=== PATIENT | female | born 1960 | race Caucasian/White ===

== ENCOUNTER → 2018-07-12 12:42 | Outpatient (CLI) | payer OTHER, SELFPAY ==
[2018-07-12 10:55] VITALS: BMI 41.6
[2018-07-15 11:24] LABS: HPV APTIMA, High Risk Negative (Negative)
== END ==
PROVIDERS: Family Provider Family Medicine; PCP Family Medicine; Referring Provider Obstetrics & Gynecology; Visit Provider Obstetrics & Gynecology
DX: Z12.4 Encounter for screening for malignant neoplasm of cervix (principal)
CPT/HCPCS: 87624; 88175; G0145

== ENCOUNTER → 2019-01-05 | Outpatient (CLI) | payer OTHER, SELFPAY ==
[2018-08-25 14:59] VITALS: BMI 41.6
[2019-01-05 10:51] LABS: Hemoglobin A1c 7.2 % (4.2-6.3)
[2019-01-05 10:55] LABS: Anion Gap 8 (5-15); BUN 13 mg/dL (7-18); BUN/Creat Ratio 22.4 RATIO (10-20); Chloride 109 mmol/L (98-107); Cholesterol 147 mg/dL (200); Creatinine, Serum 0.58 mg/dL (0.55-1.02); EST Glomerular Filtration Rate 113 mL/min (>60); Est Glom Filt Rate - Afr Amer 137 mL/min (>60); Glucose 126 mg/dL (74-106); High Density Lipoprotein 74 mg/dL; Potassium 4.1 mmol/L (3.5-5.1); Sodium Level 143 mmol/L (136-145); Triglycerides 65 mg/dL; Very Low Density Lipoprotein 13 mg/dL (5-40)
== END | disposition home or self-care (01) ==
LOC: MTLAB 09:08
PROVIDERS: Family Provider Family Medicine; PCP Family Medicine; Referring Provider Family Medicine; Visit Provider Family Medicine
DX: I10 Essential (primary) hypertension (principal); E11.9 Type 2 diabetes mellitus without complications
CPT/HCPCS: 36415; 80048; 80061; 83036

== ENCOUNTER → 2019-06-06 15:27 | Outpatient (CLI) | payer OTHER, SELFPAY ==
[2019-06-06 15:19] VITALS: BMI 41.6
--- NOTE | 2019-06-06 15:27 | RAD_ITS ---
STUDY: X-RAY CHEST REASON FOR EXAM: Female, 59 years old. COUGH AND FEVER X4 DAYS TECHNIQUE: PA and lateral views of the chest. COMPARISON: 03/05/2012 FINDINGS: There is hyperinflation of the lungs consistent with chronic obstructive lung disease (COPD). There is no demonstrated pleural abnormality. Mild cardiomegaly. Normal mediastinum and georges. Normal visualized pulmonary arteries. Normal visualized aortic arch and descending thoracic aorta. There are diffuse degenerative changes of the visualized thoracic spine. Normal visualized ribs, clavicles, and shoulders. There is no demonstrated abnormality of the visualized soft tissue structures of the upper abdomen. RAD/Chest PA and Lateral IMPRESSION: COPD. No evidence of pneumonia or CHF. No acute intrathoracic process. Electronically Signed: Harvey Richard MD at 16:26 EST Tel [phone], Service support ,
== END ==
PROVIDERS: Family Provider Family Medicine; PCP Family Medicine; Referring Provider Physician Assistant Surgical; Visit Provider Physician Assistant Surgical
DX: J40 Bronchitis, not specified as acute or chronic (principal)
CPT/HCPCS: 71046

== ENCOUNTER 2019-10-25 09:30 | Inpatient (IN) | payer OTHER, SELFPAY ==
[2019-06-06 15:19] VITALS: BMI 41.6
[2019-10-25] VITALS (35 sets, daily range): BP systolic 97–157; BP diastolic 62–111; PULSE 66–115; RESP 17–35; TEMP 36.4–36.8; O2SAT 91–100; BMI 27.6; BMI 27.9; BMI 28.0
--- NOTE | 2019-10-25 09:31 | CT_ITS ---
STUDY: CT BRAIN WITHOUT CONTRAST REASON FOR EXAM: Female, 59 years old. APHASIA, ACUTE ONSET RADIATION DOSAGE (If Supplied By Facility): CTDIvol = ( 44.99 ) mGy, DLP = ( 762.36 ) mGycm TECHNIQUE: Transaxial CT imaging of the brain was performed without administration of intravenous contrast material. Individualized dose optimization techniques were used for this CT. COMPARISON: Comparison is made with prior study dated March 05, 2012. FINDINGS: Normal soft tissue structures. Normal calvarium. Normal size ventricles and extra-axial spaces for the patient''s age. Normal white matter tracts of the cerebral hemispheres. Normal basal ganglia and thalami. Normal brainstem. There is mild cerebellar atrophy. There is no intracranial hemorrhage. There are no findings of an acute ischemic infarction. Atherosclerotic calcification of the cavernous portions of the internal carotid arteries bilaterally. Normal visualized paranasal sinuses. CT/Brain/Head without Contrast IMPRESSION: No acute abnormality is seen. N.B. : The above information has been verbally conveyed by Ronald Carranza to Kameron Sloanley on 10/25/2019 09:43:22 (ET). Electronically Signed: Ronald Carranza, at 9:45 EDT , Service support ,
--- NOTE | 2019-10-25 09:31 | EKG12_ITS ---
Test Reason : STROKE/NEURO Blood Pressure : / mmHG Vent. Rate : 106 BPM Atrial Rate : 106 BPM P-R Int : 164 ms QRS Dur : 090 ms QT Int : 346 ms P-R-T Axes : 056 -34 082 degrees QTc Int : 459 ms Sinus tachycardia with Premature atrial complexes Left axis deviation Anterior infarct , age undetermined , cannot be excluded Abnormal ECG Confirmed by MINNIE SCHULZ, CHIDI ([id number]), technical writer and editor BEVERLY ZHANG ([id number]) on 11/03/2019 4:08:26 PM Referred By: ALEJANDRA Confirmed By:CHIDI HARTMAN MD
--- NOTE | 2019-10-25 09:32 | CT_ITS ---
STUDY: CTA HEAD AND NECK WITH CONTRAST REASON FOR EXAM: Female, 59 years old. APHASIA RADIATION DOSAGE (If Supplied By Facility): CTDIvol = ( 30.95 ) mGy, DLP = ( 354.20 ) mGycm TECHNIQUE: CT angiography was performed with a multi-detector CT scanner. Data acquisition was obtained from the skull base through the vertex following intravenous administration of IV 100mL Isovue-370. MIP images were reconstructed from the axial data set. Post-processing of the angiographic images was performed, with multiplanar reformation and 3D reconstruction. Individualized dose optimization techniques were used for this CT. COMPARISON: No relevant priors. FINDINGS: Normal bilateral petrous carotid arteries. Normal right cavernous carotid artery with a normal supraclinoid bifurcation. Normal left cavernous carotid artery with a normal supraclinoid bifurcation. Normal right A1 segments of the anterior cerebral artery. Normal left A1 segments of the anterior cerebral artery. Normal intact anterior communicating artery (ACOM). Normal bilateral A2 segments of the anterior cerebral arteries. Normal right M1 and M2 segments of the middle cerebral arteries, with a normal M1 bifurcation. Normal left M1 and M2 segments of the middle cerebral arteries, with a normal M1 bifurcation. Normal right posterior communicating artery (PCOM). Normal left posterior communicating artery (PCOM). Normal bilateral vertebral arteries. Normal basilar artery with a normal basilar bifurcation. The visualized bilateral superior cerebellar (SCA) arteries are normal. Normal bilateral P1, P2 and visualized P3 segments of the posterior cerebral arteries. There is no demonstrated aneurysm of the [place] of [place]. There is no demonstrated abnormality of the visualized brain. AORTIC ARCH: Normal visualized aortic arch. Normal origins of the brachiocephalic, left common carotid, and left subclavian arteries. RIGHT CAROTID ARTERIES: Normal right common carotid artery (CCA). Normal right common carotid bulb. Normal origin of the right internal carotid (ICA) artery without a hemodynamically significant stenosis. Normal visualized cervical portion of the right internal carotid artery. Normal origin of the right external carotid artery (ECA). LEFT CAROTID ARTERIES: Normal left common carotid artery (CCA). Normal left common carotid bulb. Normal origin of the left internal carotid (ICA) artery without a hemodynamically significant stenosis. Normal visualized cervical portion of the left internal carotid artery. Normal origin of the left external carotid artery (ECA). VERTEBRAL ARTERIES: Normal bilateral vertebral arteries. Moderate bilateral pleural effusions. There is a 1.3 cm x 1.3 cm nodular density in the peripheral lateral aspect of the right upper lobe. CT/CTA Head AND Neck W/ Contrast IMPRESSION: Normal CTA Head and neck with contrast. 1.3 cm x 1.3 cm nodular density in the peripheral lateral aspect of the right upper lobe with bilateral pleural effusions. Electronically Signed: Ronald Carranza, at 10:09 EDT , Service support ,
--- NOTE | 2019-10-25 09:33 | ED.VIS.GEN ---
History of Present Illness Chief Complaint: Neuro S/Sx Informant: Patient Onset: Today Context: Sudden Onset Timing: Continuous Current Severity: Moderate Maximum Severity: Severe Narrative: Patient is a 59-year-old female with medical history significant for hypertension and prior breast cancer that presents to the emergency department with sudden onset expressive a aphasia. Patient was fatigued yesterday. She woke this morning and per daughter, she states that she was speaking. Shortly thereafter, she developed some slurred speech and garbled speech. Within the past 45 minutes, she has had total expressive aphasia. She denies headache. She denies visual change. Patient is able to follow commands and answer questions. She has no history of prior stroke. She denies any recent trauma. She has had no fever or chills. Prior similar symptoms: No Recent Illness/Hospitalization: No Past Medical History - Allergies and Home Meds Allergies/Adverse Reactions: Allergies No Known Allergies Allergy (Verified 10/25/19 09:55) Prior records reviewed: Yes Past Medical History: - - Hypertension, prior breast cancer Smoking Status: Never smoker Review of Systems General: Denies: Chills, Fever, Sweats Eyes: Denies: Visual changes - bilaterally, Diplopia ENT: Denies: Rhinorrhea, Sore throat Cardiovascular: Denies: Chest pain, Palpitations Respiratory: Denies: Dyspnea, Cough, Dyspnea on exertion Gastrointestinal: Denies: Abdominal pain, Nausea, Vomiting, Diarrhea, Melena, Hematochezia Genitourinary: Denies: Dysuria, Hematuria, Frequency Musculoskeletal: Denies: Back pain, Extremity Pain Skin: Denies: Rash, Wounds Neurological: Reports: Weakness. Denies: Headache, Numbness Physical Exam Inital Vital Signs reviewed: Yes General: Well nourished, Well developed, No Acute Distress Head: Normocephalic, Atraumatic Eyes: Perrl, EOMI ENT: Moist mucous membranes, No rhinorrhea Neck: Supple, Nontender Cardiovascular: Regular rate, Regular rhythm, No murmurs Respiratory: No distress, CTA bilaterally, Chest nontender Abdomen: Soft, Nontender, Nondistended, Normal bowel sounds Back: Nontender, Normal Inspection Extremities: Nontender, No edema Skin: Normal color, No rash Neurological: Alert, Oriented x3, Cranial nerves II-XII grossly intact, Normal Strength, Normal Sensation, - - Patient does have expressive aphasia Psychological: Normal affect, Normal Mood Diagnostic/Tx/Re-eval Chest X-Ray - ED: 1 View, Cardiomegaly, CHF 1A: Level of consciousness May be assessed casually while taking history Alert; keenly responsive0 Arouses to minor stimulation+1 Requires repeated stimulation to arouse+2 Movements to pain+2 Postures or unresponsive+3 1B: Ask month and age Both questions right0 1 question right+1 0 questions right +2 Dysarthric/intubated/trauma/language barrier +1 Aphasic+2 1C: 'Blink eyes' & 'squeeze hands' Pantomime commands if communication barrier Performs both tasks0 Performs 1 task+1 Performs 0 tasks+2 2: Horizontal extraocular movements Only assess horizontal gaze Normal0 Partial gaze palsy: can be overcome+1 Partial gaze palsy: corrects with oculocephalic reflex+1 Forced gaze palsy: cannot be overcome+2 3: Visual dennis No visual loss0 Partial hemianopia+1 Complete hemianopia+2 Patient is bilaterally blind+3 Bilateral hemianopia+3 4: Facial palsy Use grimace if obtunded Normal symmetry0 Minor paralysis (flat nasolabial fold, smile asymmetry)+1 Partial paralysis (lower face)+2 Unilateral complete paralysis (upper/lower face)+3 Bilateral complete paralysis (upper/lower face)+3 5A: Left arm motor drift Count out loud and use your fingers to show the patient your count No drift for 10 seconds0 Drift, but doesn't hit bed+1 Drift, hits bed+2 Some effort against gravity+2 No effort against gravity+3 No movement+4 Amputation/joint fusion0 5B: Right arm motor drift Count out loud and use your fingers to show the patient your count No drift for 10 seconds0 Drift, but doesn't hit bed+1 Drift, hits bed+2 Some effort against gravity+2 No effort against gravity+3 No movement+4 Amputation/joint fusion0 6A: Left leg motor drift Count out loud and use your fingers to show the patient your count No drift for 5 seconds0 Drift, but doesn't hit bed+1 Drift, hits bed+2 Some effort against gravity+2 No effort against gravity+3 No movement+4 Amputation/joint fusion0 6B: Right leg motor drift Count out loud and use your fingers to show the patient your count No drift for 5 seconds0 Drift, but doesn't hit bed+1 Drift, hits bed+2 Some effort against gravity+2 No effort against gravity+3 No movement+4 Amputation/joint fusion0 7: Limb Ataxia FNF/heel-moss No ataxia0 Ataxia in 1 Limb+1 Ataxia in 2 Limbs+2 Does not understand0 Paralyzed0 Amputation/joint fusion0 8: Sensation Normal; no sensory loss0 Mild-moderate loss: less sharp/more dull +1 Mild-moderate loss: can sense being touched +1 Complete loss: cannot sense being touched at all+2 No response and quadriplegic +2 Coma/unresponsive+2 9: Language/aphasia Describe the scene; name the items; read the sentences (see Evidence) Normal; no aphasia0 Mild-moderate aphasia: some obvious changes, without significant limitation+1 Severe aphasia: fragmentary expression, inference needed, cannot identify materials+2 Mute/global aphasia: no usable speech/auditory comprehension+3 Coma/unresponsive+3 10: Dysarthria Read the words (see Evidence) Normal0 Mild-moderate dysarthria: slurring but can be understood+1 Severe dysarthria: unintelligible slurring or out of proportion to dysphasia+2 Mute/anarthric+2 Intubated/unable to test0 11: Extinction/inattention No abnormality0 Visual/tactile/auditory/spatial/personal inattention+1 Extinction to bilateral simultaneous stimulation+1 Profound graciela-inattention (ex: does not Total - 7 Clinical Impression(s) from Imaging Studies Brain CT 10/25/19 09:31 IMPRESSION: No acute abnormality is seen. N.B. : The above information has been verbally conveyed by Ronald Carranza to Kameron Munguia on 10/25/2019 09:43:22 (ET). Electronically Signed: Ronald Carranza, at 9:45 EDT , Service support , ADDENDUM: 10/25/19 1974 IMPRESSION: No acute abnormality is seen. N.B. : The above information has been verbally conveyed by Ronald Carranza to Kameron Munguia on 10/25/2019 09:43:22 (ET). Electronically Signed: Ronald Carranza, at 9:45 EDT , Service support , Head/Neck CTA 10/25/19 09:32 IMPRESSION: Normal CTA Head and neck with contrast. 1.3 cm x 1.3 cm nodular density in the peripheral lateral aspect of the right upper lobe with bilateral pleural effusions. Electronically Signed: Ronald Carranza, at 10:09 EDT , Service support , Abnormal Lab Results 10/25/19 10/25/19 10/25/19 09:40 09:40 09:40 WBC 7.3 RBC 4.89 Hgb 13.9 Hct 42.5 MCV 86.9 MCH 28.4 MCHC 32.7 RDW Std Deviation 42.7 RDW Coeff of Ana 13.7 Plt Count 235 MPV 9.8 Immature Gran % (Auto) 0.300 Neut % (Auto) 58.8 Lymph % (Auto) 33.2 [place] % (Auto) 6.0 Eos % (Auto) 1.2 Baso % (Auto) 0.5 Absolute Neuts (auto) 4.3 Absolute Lymphs (auto) 2.44 Nucleated RBC % 0 PT 14.4 INR 1.2 APTT 30.4 Sodium 140 Potassium 3.7 Chloride 106 Carbon Dioxide 24.0 Anion Gap 10 BUN 13 Creatinine 0.89 Estim Creat Clear Calc 53.83 Est GFR (MDRD) Af Amer 83 Est GFR (MDRD) Non-Af 69 BUN/Creatinine Ratio 14.6 Glucose 201 H Calcium 9.2 Troponin I 0.033 - Rhythm Strip Rhythm Strip: Sinus Rhythm Rate: 90 Ectopy: None - EKG Initial EKG Interpretation: Sinus Rhythm, No Acute Injury Pattern Prior: Unchanged - Medical Decision Making The patient presents with dysarthria that has worsened into total expressive aphasia. Stroke team was activated. Patient was sent immediately for CT and CTA. CT showed no acute abnormality. CTA did not show any abrupt large vessel cutoff. Patient was evaluated by neurology. There was a delay in decision for TPA as the family had a longer discussion. At the approximately 40-minute berto, the family did agree with plan for TPA. The patient was consented and had no exclusion criteria. TPA was ordered. The patient will be admitted to the ICU. Impression 1. Acute ischemic stroke - Critical Care Time Critical care time (excluding procedures): 30-74 minutes, Discussing w/Patient &/or Family/Radio Script Writer, Discussing w/Consultants, Arranging Admission or Transfer, Performing Direct Patient Care at Bedside ED Disposition - Plan for ED Patient:
--- NOTE | 2019-10-25 09:37 | NURSING ---
0927 STROKE ALERT CALLED
--- NOTE | 2019-10-25 09:42 | NURSING ---
0936 FACESHEET FAXED TO [facility]
[2019-10-25 09:54] LABS: Absolute Lymphocyte Count 2.44 X10^3/uL (0.83-4.51); Absolute Neutrophil Count 4.3 X10^3/uL (2.0-7.7); Basophil# 0.04 X10^3/uL; Basophil% 0.5 % (0-1); Eosinophil# 0.09 X10^3/uL; Eosinophils% 1.2 % (0-5); Hematocrit 42.5 % (37-47); Hemoglobin 13.9 g/dL (12.0-15.0); Lymphocyte # 2.44 X10^3/ul (4.0); Lymphocyte % 33.2 % (19-41); Mean Corp Hgb Conc 32.7 g/dL (32-36); Mean Corpuscular Hgb 28.4 pg (27.0-32.0); Mean Corpuscular Volume 86.9 fL (81-99); Mean Platelet Vol. 9.8 fl (6.2-12.0); Monocyte# 0.44 X10^3/uL; NRBC Flagged by Analyzer 0 % (0-5); Neutrophil # 4.31 X10^3/uL (2.7-7.7); Neutrophil % 58.8 % (47-70); Platelet Count 235 K/mm3 (150-450); RBC Distribution Width CV 13.7 % (11.6-14.6); RBC Distribution Width SD 42.7 fl (35.1-43.9); Red Blood Count 4.89 M/mm3 (4.2-5.4); White Blood Count 7.3 K/mm3 (4.4-11.0)
[2019-10-25 09:59] LABS: International Normalized Ratio 1.2; Prothrombin Time (Protime)PT. 14.4 SECONDS (11.7-14.9)
[2019-10-25 10:00] LABS: Partial Thromboplast Time 30.4 Seconds (24.1-36.2)
[2019-10-25 10:08] LABS: Anion Gap 10 (5-15); BUN 13 mg/dL (7-18); BUN/Creat Ratio 14.6 RATIO (10-20); Calcium,Total 9.2 mg/dL (8.5-10.1); Chloride 106 mmol/L (98-107); Creatinine, Serum 0.89 mg/dL (0.55-1.02); EST Glomerular Filtration Rate 69 mL/min (>60); Est Glom Filt Rate - Afr Amer 83 mL/min (>60); Estimated Creatinine Clearance 53.83 ml/min; Glucose 201 mg/dL (74-106); Potassium 3.7 mmol/L (3.5-5.1); Sodium Level 140 mmol/L (136-145)
--- NOTE | 2019-10-25 10:16 | NURSING ---
DR CHAD SCHWARTZ
--- NOTE | 2019-10-25 10:25 | NURSING ---
ICU PAINTSIL ISCHEMIC STROKE
--- NOTE | 2019-10-25 10:30 | RAD_ITS ---
STUDY: X-RAY CHEST REASON FOR EXAM: Female, 59 years old. Stroke symptoms, difficulty communicating, cough TECHNIQUE: Single AP portable view of the chest. COMPARISON: Comparison is made with prior study dated June 06, 2019. FINDINGS: EKG electrodes are seen. Blunting of both costophrenic angles. Findings suggestive of a mild degree of vascular congestion. There is mild cardiac enlargement. Normal mediastinum and georges. Normal visualized pulmonary arteries. Normal visualized aortic arch and descending thoracic aorta. Normal visualized thoracic spine. Normal visualized ribs, clavicles, and shoulders. There is no demonstrated abnormality of the visualized soft tissue structures of the upper abdomen. RAD/Chest 1 View IMPRESSION: Cardiomegaly. Blunting of both clustering angles with findings suggesting a mild degree of CHF. Electronically Signed: Ronald Carranza, at 10:49 EDT , Service support ,
--- NOTE | 2019-10-25 10:36 | NURSING ---
ICU 8
[2019-10-25] MEDS: 0.9% Normal Saline 1,000 ML 100 ML IV (11:31)
--- NOTE | 2019-10-25 11:44 | PCM.HP.STD ---
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 Patient was last known to be normal at 7:30am in the morning when she woke up. Around 8:30-8:45 AM, and her daughter noticed that she had word finding difficulty.She was also slightly short of breath. She has been recovering from a chest cold. No sick contacts. No fevers or diarrhea. Vitals in ED showed temp 97.8F, HR 115, BP 129/90, RR 26, Spo2 96% on room air. CBCD and BMP were unremarkable. Brain CT was unremarkable. CTA head and neck is normal. There is a 1.3cm x 1.3 cm nodular density in the peripheral lateral aspect of the right upper lobe with bilateral pleural effusions. Patient had a telling stroke consult in the ED. Decision to give TPA was made. TPA was given at 10:19am. Past Medical History Past Medical History (Chronic Problems): Chronic Problems (Last Reviewed 06/06/19 @ 15:19 by Jovany Gonzáles) Breast CA (Chronic) Hypertension (Chronic) DM (diabetes mellitus) (Chronic) Medical History: Medical History (Last Reviewed 06/06/19 @ 15:19 by Jovany Gonzáles) Arthritis M19.90 Breast cancer C50.[address] [place] [address] Diabetes E11.9 History of migraine headaches Z86.69 Hypertension I10 Allergies No Known Allergies Allergy (Verified 10/25/19 09:55) Home Medications: Ambulatory Orders Medication Instructions Recorded lisinopril 20 mg tablet 20 mg PO QDAY 06/26/17 metformin 500 mg tablet 500 mg PO BID 06/26/17 Letrozole 2.5 mg PO DAILY 10/25/19 Surgical History: Surgical History (Last Reviewed 06/06/19 @ 15:19 by Jovany Gonzáles) H/O lumpectomy Z98.890 History of appendectomy Z98.890, Z90.49 History of delivery Z98.891 Surgical History: appendectomy, - - s/p caesarian section, s/p lumpectomy Psychiatric History: No pertinent psych hx 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: No pertinent HIGH HEEL BUILDER history Lives: Spouse/ Significant Other Smoking Status: Never smoker Tobacco Use: Non-smoker Alcohol: Occasional Drugs: None - *Family History Maternal Family History: Family History (Last Reviewed 06/06/19 @ 15:19 by Jovany Gonzáles) Mother Hypertension Myocardial infarction Father Diabetes Cancer Grandmother Hypertension CVA (cerebral vascular accident) Heart disease Cancer Grandfather Hypertension Colon cancer Cancer Aunt Breast cancer History Items: Heart Disease - [place], Hypertension Paternal Family History: Family History (Last Reviewed 06/06/19 @ 15:19 by Jovany Gonzáles) Mother Hypertension Myocardial infarction Father Diabetes Cancer Grandmother Hypertension CVA (cerebral vascular accident) Heart disease Cancer Grandfather Hypertension Colon cancer Cancer Aunt Breast cancer History Items: Cancer - prostate, Diabetes Review of Systems Unable to obtain accurate/complete ROS d/t: Unable to assess because of expressive aphasia VTE Information - Inpt Only VTE Present on Admission: No VTE Pharm Prophylaxis ordered?: Yes Patient Problems: Active and Suspected Problems (Last Reviewed 06/06/19 @ 15:19 by Jovany Gonzáles) CVA (cerebral vascular accident) (Acute) - Physical Exam Vitals/I&O's: Vital Signs Temp Pulse Resp BP Pulse Ox 98.3 F 98 17 157/98 H 98 10/25/19 10:34 10/25/19 10:53 10/25/19 10:53 10/25/19 10:53 10/25/19 10:53 Oxygen Flow Rate (L/min) 2 Oxygen Delivery Method Nasal Cannula Weight: 67.1 kg Body Mass Index (BMI) 27.9 Finger Stick Blood Glucose 190 General: Alert, Oriented x3, Cooperative, No apparent distress, - - on 2L oxygen HEENT: Atraumatic, PERRLA, EOMI, Normocephalic Oral: Moist Mucosa Neck: Supple Lungs: Diminished Cardiovascular: Regular rate, Regular Rhythm, Normal S1, Normal S2 Abdomen: Bowel Sounds Present, Soft, Non Tender, Non-Distended, No Hepato-splenomegaly Extremities: No edema Skin: No rashes, No breakdown Musculoskeletal: No Tenderness to Palpation of Joints or Extremities Neurological: Cranial nerves II-XII grossly intact - except expressive aphasia, Neuro grossly intact Psych/Mental Status: Normal Affect, Appropriate Laboratory Results 10/25/19 09:40: WBC 7.3, RBC 4.89, Hgb 13.9, Hct 42.5, MCV 86.9, MCH 28.4, MCHC 32.7, RDW Std Deviation 42.7, RDW Coeff of Ana 13.7, Plt Count 235, MPV 9.8, Immature Gran % (Auto) 0.300, Neut % (Auto) 58.8, Lymph % (Auto) 33.2, [place] % (Auto) 6.0, Eos % (Auto) 1.2, Baso % (Auto) 0.5, Absolute Neuts (auto) 4.3, Absolute Lymphs (auto) 2.44, Nucleated RBC % 0 10/25/19 09:40: PT 14.4, INR 1.2, APTT 30.4 10/25/19 09:40: Sodium 140, Potassium 3.7, Chloride 106, Carbon Dioxide 24.0, Anion Gap 10, BUN 13, Creatinine 0.89, Estim Creat Clear Calc 53.83, Est GFR (MDRD) Af Amer 83, Est GFR (MDRD) Non-Af 69, BUN/Creatinine Ratio 14.6, Glucose 201 H, Calcium 9.2, Troponin I 0.033 10/25/19 10:27: COVID-19 ([facility]ERRY) Cancelled Current Medications Acetaminophen (Tylenol) 650 mg PO .X1 PRN PRN Reason: Temp > 99.6 F Dextrose (D50w Syringe) 0 gm IV X1 PRN; Protocol PRN Reason: Hypoglycemia Diphenhydramine HCl (Benadryl) 50 mg IV .X1 PRN PRN Reason: Allergic Reaction Stop: 10/27/19 10:09 Epinephrine HCl () 0.3 mg IM .X1 PRN PRN Reason: Allergic Reaction Stop: 10/27/19 10:09 Glucagon () 1 mg IM .X1 PRN PRN Reason: Hypoglycemia Famotidine 20 mg/ Sodium (Chloride) 10 mls @ 300 mls/hr IV .X1 PRN PRN Reason: Allergic Reaction Stop: 10/27/19 10:09 Nicardipine/Dextrose (Cardene-Dex 20 Mg/200 Ml Soln) 20 mg in 200 mls @ 50 mls/hr IV .Q4H PRN; Protocol PRN Reason: See Instructions Sodium Chloride () 1,000 mls @ 75 mls/hr IV .[id number] ANAHI Insulin Human Lispro (Humalog Kwikpen (Bkc)) 0 unit SC ACHS ANAHI; Protocol Labetalol HCl (Trandate) 20 mg IV X1 PRN PRN Reason: BLOOD PRESSURE Labetalol HCl (Trandate) 20 mg IV X1 PRN PRN Reason: BLOOD PRESSURE Methylprednisolone (Solu-Medrol) 125 mg IV .X1 PRN PRN Reason: Allergic Reaction Stop: 10/27/19 10:09 Assessment/Plan All Active Problems (Last Reviewed 06/06/19 @ 15:19 by Jovany Gonzáles) CVA (cerebral vascular accident) (Acute) URI, acute (Acute) Sinusitis (Acute) Bronchitis (Acute) 59 year old F with PMHx of breast CA, hypertension, Type 2 DM who comes in with slurred speech and word-finding difficulty that started the morning of the admission. Last known well at 7:30 in the morning. 1. Acute onset of expressive aphasia likely secondary to CVA Initial CT of the head was negative, CT of the head and neck was unremarkable for stenotic lesions Patient was deemed to be a TPA candidate; given TPA on 10/25/19 at 10:19 AM Continue in ICU per post-TPA protocol, repeat CT of the head, MRI of the head 2d-echo, lipid profile 2. Hypertension, would hold lisinopril PRN medications for post TPA blood pressure management 3. Type II DM on metformin; Will hold metformin in light of recent contrast Check [id number] Continue with blood sugar checks and insulin sliding scale 4. History of breast CA, on chemotherapy, with lung metastasis possibly metastatic Needs to be followed up in the outpatient 5. DVT PPx-status post recent TPA, continue with SCDs 6. Code status: Full code -confirmed with her Inpatient E&M: 83281 Subs Hosp L3
[2019-10-25] MEDS: 0.9% Normal Saline 1,000 ML 75 ML IV (12:14)
[2019-10-25] MEDS: 0.9% Saline Lock 10 ML Syringe IV ×2 (12:16→17:23)
[2019-10-25 12:30] LABS: Bedside Glucose 130 mg/dL (70-110)
--- NOTE | 2019-10-25 14:05 | CON.PCM_ITS ---
Problem List (1) CVA (cerebral vascular accident) Status: Acute Qualifiers: CVA mechanism: embolism (2) URI, acute Status: Acute (3) Sinusitis Status: Acute Reason for Consult Date of Consultation: 10/25/19 Reason for Consultation: Hypoxia History of Present Illness: The patient is a 59 year old F, with past medical history listed below, who presented [facility] on 10/25/2019 secondary to acute onset of expressive aphasia. Patient reportedly had been fatigued for the last 2 to 3 days and this morning at approximately 8:30 AM started to have difficulty with speaking. This had progressed to total aphasia, so patient presented to the ER after 45 minutes. Patient denied any associated headache or visual change. Patient is able to follow commands and answer questions slowly, but has visible frustration with word finding. On presentation to the emergency department, stroke team was activated. Patient was found to have an NIH of 7. CT of the head showed no main vessel occlusion. CTA of the head and neck showed no obvious large vessel occlusion, but patient did have a 1.3 x 1.3 nodular density in the peripheral aspect of the right upper lobe and bilateral pleural effusions. Pleural effusions were also noted on chest x-ray. She was given TPA and then admitted to the intensive care unit. Since being in the intensive care unit, patient was slightly hypoxic requiring minimal nasal cannula oxygen. Patient does not have any family at the bedside. Patient has gotten better with word finding compared to emergency department, but still has significant aphasia. No weakness or paresthesia has been noted. Patient has been slightly hypertensive, but has not required any as needed medications. Obtaining history is very difficult given patient's aphasia. Patient reportedly has had some issues with shortness of breath prior to this hospitalization. Patient states that she had been ordered a pulmonary function test, but this was not completed secondary to COVID-19 pandemic. Patient states that there was some concern for COPD secondary to repeated bronchitis, but patient has never been a smoker. Patient was placed on an inhaler and felt subjectively that it was helpful. Patient does have a history of breast cancer, but is unclear on when her last chest imaging was completed. Unable to obtain a complete review of systems secondary to aphasia and patient frustration. Past Medical History Medical History: Medical History (Last Reviewed 06/06/19 @ 15:19 by Jovany Gonzáles) Arthritis M19.90 Breast cancer C50.919 johny almanza Diabetes E11.9 History of migraine headaches Z86.69 Hypertension I10 Allergies No Known Allergies Allergy (Verified 10/25/19 09:55) Home Medications: Ambulatory Orders Medication Instructions Recorded lisinopril 20 mg tablet 20 mg PO QDAY 06/26/17 metformin 500 mg tablet 500 mg PO BID 06/26/17 Letrozole 2.5 mg PO DAILY 10/25/19 Surgical History: Surgical History (Last Reviewed 06/06/19 @ 15:19 by Jovany Gonzáles) H/O lumpectomy Z98.890 History of appendectomy Z98.890, Z90.49 History of delivery Z98.891 Smoking Status: Never smoker Tobacco Use: Non-smoker Review of Systems Unable to obtain accurate/complete ROS d/t: Aphasia Patient Problems: Active and Suspected Problems (Last Reviewed 06/06/19 @ 15:19 by Jovany Gonzáles) CVA (cerebral vascular accident) (Acute) Objective: All imaging was personally reviewed. CTA of the neck does show a peripherally based soft tissue density with what appears to be moderate effusions. This is not as impressive on chest x-ray. Patient does not have any previous pulmonary function test for review. - Physical Exam Vitals/I&O's: Vital Signs Temp Pulse Resp BP Pulse Ox 36.4 C L 95 28 H 138/91 H 99 10/25/19 12:00 10/25/19 14:00 10/25/19 14:00 10/25/19 14:00 10/25/19 14:00 Oxygen Flow Rate (L/min) 2 Oxygen Delivery Method Nasal Cannula Weight: 67.1 kg Body Mass Index (BMI) 27.9 Finger Stick Blood Glucose 190 Intake and Output for Last 24 Hours 10/23/19 10/24/19 10/25/19 23:59 23:59 23:59 Intake Total 186.0 / 186.0 Output Total 500 / 500 Balance -314.0 / -314.0 General: Alert, Oriented x3, Cooperative, No apparent distress, - - Appears stated age. HEENT: Atraumatic, PERRLA, EOMI, Normocephalic, - - Mild facial droop appreciated Oral: Moist Mucosa, No Gingival or Mucosal Lesions/ Ulcerations Neck: Supple, No Nodes, Trachea Midline Lungs: Clear to auscultation, Normal air movement, No rhonchi, No wheeze, No rales, - - No dullness to percussion appreciated Cardiovascular: Regular rate, Regular Rhythm, Normal S1, Normal S2, No murmurs, No rub noted, No Gallop Abdomen: Bowel Sounds Present, Soft, Non Tender, Non-Distended Extremities: No clubbing, No cyanosis, Edema - Left upper extremity Skin: No rashes, No breakdown Musculoskeletal: No Tenderness to Palpation of Joints or Extremities Lymphatic: No Cervical, Supraclavicular, or Inguinal Adenopathy Neurological: - - Significant aphasia and dysarthria. Sensation and motor appear to be intact. Patient does have a mild facial droop noted Psych/Mental Status: Normal Affect, Appropriate Microbiology Past 72 Hours 10/25/19 10:27 Mucosa - Nasopharyngeal Coronavirus COVID-19 PCR - Final Laboratory Results 10/25/19 09:40: WBC 7.3, RBC 4.89, Hgb 13.9, Hct 42.5, MCV 86.9, MCH 28.4, MCHC 32.7, RDW Std Deviation 42.7, RDW Coeff of Ana 13.7, Plt Count 235, MPV 9.8, Immature Gran % (Auto) 0.300, Neut % (Auto) 58.8, Lymph % (Auto) 33.2, Tompkins % (Auto) 6.0, Eos % (Auto) 1.2, Baso % (Auto) 0.5, Absolute Neuts (auto) 4.3, Absolute Lymphs (auto) 2.44, Nucleated RBC % 0 10/25/19 09:40: PT 14.4, INR 1.2, APTT 30.4 10/25/19 09:40: Sodium 140, Potassium 3.7, Chloride 106, Carbon Dioxide 24.0, Anion Gap 10, BUN 13, Creatinine 0.89, Estim Creat Clear Calc 53.83, Est GFR (MDRD) Af Amer 83, Est GFR (MDRD) Non-Af 69, BUN/Creatinine Ratio 14.6, Glucose 201 H, Calcium 9.2, Troponin I 0.033 10/25/19 10:27: COVID-19 (SHERRY) Cancelled 10/25/19 12:23: POC Glucose 130 H Current Medications Acetaminophen (Tylenol) 650 mg PO .X1 PRN PRN Reason: Temp > 99.6 F Dextrose (D50w Syringe) 0 gm IV X1 PRN; Protocol PRN Reason: Hypoglycemia Diphenhydramine HCl (Benadryl) 50 mg IV .X1 PRN PRN Reason: Allergic Reaction Stop: 10/27/19 10:09 Epinephrine HCl () 0.3 mg IM .X1 PRN PRN Reason: Allergic Reaction Stop: 10/27/19 10:09 Famotidine (Pepcid) 20 mg PO BID ANAHI Glucagon () 1 mg IM .X1 PRN PRN Reason: Hypoglycemia Famotidine 20 mg/ Sodium (Chloride) 10 mls @ 300 mls/hr IV .X1 PRN PRN Reason: Allergic Reaction Stop: 10/27/19 10:09 Nicardipine/Dextrose (Cardene-Dex 20 Mg/200 Ml Soln) 20 mg in 200 mls @ 50 mls/hr IV .Q4H PRN; Protocol PRN Reason: See Instructions Sodium Chloride () 1,000 mls @ 75 mls/hr IV .[id number] [facility] Last Admin: 10/25/19 12:14 Dose: 75 mls/hr Documented by: Sodium Chloride () 250 mls @ 15 mls/hr IV .[id number] PRN PRN Reason: Saline Flush Sodium Chloride () 250 mls @ 15 mls/hr IV .[id number] PRN PRN Reason: Additional IVPB Infusion Insulin Human Lispro (Humalog Kwikpen (Bkc)) 0 unit [facility]; Protocol Last Admin: 10/25/19 12:24 Dose: Not Given Documented by: Labetalol HCl (Trandate) 20 mg IV X1 PRN PRN Reason: BLOOD PRESSURE Labetalol HCl (Trandate) 20 mg IV X1 PRN PRN Reason: BLOOD PRESSURE Methylprednisolone (Solu-Medrol) 125 mg IV .X1 PRN PRN Reason: Allergic Reaction Stop: 10/27/19 10:09 Ondansetron HCl (Zofran) 4 mg IV Q8H PRN PRN PRN Reason: NAUSEA/VOMITING Sodium Chloride () 10 - 40 ml IV UD PRN PRN Reason: SALINE FLUSH Last Admin: 10/25/19 12:16 Dose: 10 ml Documented by: Clinical Impression(s) from Imaging Studies Brain CT 10/25/19 09:31 IMPRESSION: No acute abnormality is seen. N.B. : The above information has been verbally conveyed by Ronald Carranza to Kameron Nilda on 10/25/2019 09:43:22 (ET). Electronically Signed: Ronald Carranza, at 9:45 EDT , Service support , ADDENDUM: 10/25/19 0952 IMPRESSION: No acute abnormality is seen. N.B. : The above information has been verbally conveyed by Ronald Carranza to Kameron Nilda on 10/25/2019 09:43:22 (ET). Electronically Signed: Ronald Carranza, at 9:45 EDT , Service support , Head/Neck CTA 10/25/19 09:32 IMPRESSION: Normal CTA Head and neck with contrast. 1.3 cm x 1.3 cm nodular density in the peripheral lateral aspect of the right upper lobe with bilateral pleural effusions. Electronically Signed: Ronadl Carranza, at 10:09 EDT , Service support , Chest X-Ray 10/25/19 10:30 IMPRESSION: Cardiomegaly. Blunting of both clustering angles with findings suggesting a mild degree of CHF. Electronically Signed: Ronald Carranza, at 10:49 EDT , Service support , Assessment/Plan Active and Suspected Problems (Last Reviewed 06/06/19 @ 15:19 by Jovany Gonzáles) CVA (cerebral vascular accident) (Acute) RECOMMENDATIONS: 1. Continue with post TPA protocol 2. Wean oxygen as tolerated 3. Obtain CT chest without contrast following 24 hours after TPA 4. Possible need for thoracentesis for cytology and diagnostic work-up 5. Initiate as needed bronchodilators RECOMMENDATIONS: 1. Acute CVA status post TPA Patient presented with an NIH of 7 and currently has an NIH of 4 after TPA. We will continue with the thrombolytic protocol for the next 24 hours. Patient can have an MRI tomorrow at [address] scan. Defer to primary service. Do recommend a neurology consult per stroke guidelines. 2. Possible lung nodule with pleural effusion CTA of the neck is suggestive of a right upper lobe peripherally based nodule. Given patient's history of breast cancer, this would be concerning for a possible metastatic lesion. Patient appears to have significant pleural effusion on the CTA, but this is not impressive on physical exam or chest x-ray. Clinical suspicion for seclusion at the diaphragm. Patient may benefit from a diagnostic thoracentesis on the right versus a CT-guided biopsy if lesion is noted on a CT of the chest. 3. Acute hypoxic respiratory insufficiency Unclear etiology at this time. Patient does have a pleural effusion which is suggestive of an etiology. This does not appear to be clinically significant chest x-ray. Patient does not have significant apical emphysematous changes. Patient will have an echocardiogram as part of the stroke work-up, so CHF can be evaluated from that regard. Patient is on telemetry at this time. We will schedule patient for as needed DuoNeb therapy. However, low clinical suspicion for COPD given lack of smoking history. Asthma would be a consideration. 4. Recurrent bronchitis/history of breast CA Complicates care, management, recovery and prognosis. Patient does not have any recent imaging for comparison. Patient reportedly has responded to bronchodilators in the past, so will order PRN DuoNeb. Inpatient E&M: 41665 Init Hosp L3
--- NOTE | 2019-10-25 15:04 | ECHOCS_ITS ---
Reason For Study: TIA/CVA Procedure This was a 2D Doppler, Color Flow transthoracic echocardiogram. The study was technically difficult. Contrast injection was performed. Exam performed portable in ICU/CCU. Left Ventricle Severely dilated left ventricle. The estimated ejection fraction is 10-15 %. There is severe global hypokinesis of the left ventricle. Right Ventricle Normal size and thickness. Mild to moderate global right ventricular systolic dysfunction. Atria The left atrium is mildly enlarged. Normal right atrium. Normal atrial septum. Bubble contrast study negative for right to left interatrial shunt. Mitral Valve The mitral valve is structurally normal. No prolapse or stenosis seen. Mild (1+) eccentric mitral valve insufficiency. Tricuspid Valve Normal tricuspid valve. Mild to moderate (1-2+) tricuspid valve insufficiency. Right ventricular systolic pressure estimated to be 47 mmHg. Mild pulmonary hypertension. Aortic Valve Trisinus/trileaflet aortic valve. Mild diffuse aortic valve thickening. Trivial aortic valve insufficiency. Pulmonic Valve Normal pulmonic valve. Trivial pulmonic valve insufficiency. Great Vessels Normal aortic root. Normal arch. The inferior vena cava is dilated. No collapse of the inferior vena cava. Pericardium/Pleural No pericardial effusion. Medication Diluted definity 2.5ml given slow IV push to enhance endocardial definition. Performed a rapid injection of agitated mix of 9 cc saline and 1cc air to assess for atrial septal defect. MMode/2D Measurements & Calculations LVIDd: 6.0 cm IVSd: 0.97 cm Ao root diam: 3.5 cm LVIDs: 5.6 cm LVPWd: 1.0 cm RVDd: 3.5 cm FS: 6.9 % LAV(MOD-bp): 65.3 ml LVAd ap4: 44.0 cm2 SV(MOD-sp4): 46.0 ml LAV(MOD-bp) Indexed: 39.3 ml/m2 EDV(MOD-sp4): 184.2 ml LAV(MOD-sp2): 65.9 ml EDV(sp4-el): 196.9 ml LAV(MOD-sp4): 66.4 ml LVAs ap4: 35.6 cm2 ESV(MOD-sp4): 138.3 ml ESV(sp4-el): 147.0 ml EF(MOD-sp4): 25.0 % EF(sp4-el): 25.4 % SV(sp4-el): 50.0 ml LA A4 area: 21.1 cm2 LA dimension(2D): 4.1 cm RA A4 area: 15.4 cm2 Time Measurements MV dec time: 0.18 sec Doppler Measurements & Calculations MV E max kirill: 82.4 cm/sec Lat Peak E' Kirill: 3.3 cm/sec Med Peak E' Kirill: 1.2 cm/sec MV A max kirill: 26.1 cm/sec E/E' lat: 25.3 E/E' med: 69.0 MV E/A: 3.2 Ao V2 max: 89.9 cm/sec AI max kirill: 323.4 cm/sec LV V1 max: 67.0 cm/sec Ao max P.2 mmHg AI max P.9 mmHg LV V1 max P.8 mmHg AI dec slope: 217.1 cm/sec2 AI P1/2t: 436.4 msec PA V2 max: 82.2 cm/sec PI end-d kirill: 137.2 cm/sec TR max kirill: 314.1 cm/sec TR max P.5 mmHg Interpretation Summary Severely dilated left ventricle. The estimated ejection fraction is 10-15 %. There is severe global hypokinesis of the left ventricle. Mild to moderate global right ventricular systolic dysfunction. The left atrium is mildly enlarged. Bubble contrast study negative for right to left interatrial shunt. Mild (1+) eccentric mitral valve insufficiency. Mild to moderate (1-2+) tricuspid valve insufficiency. Right ventricular systolic pressure estimated to be 47 mmHg. Mild pulmonary hypertension. Trivial aortic valve insufficiency. The inferior vena cava is dilated Dr Fortune notified of results The study was technically difficult. Contrast injection was performed. There is no comparison study available. Ordering Physician: Keri Rondon Referring Physician: HODA ZHANG Performed By: Brianna Maloney, DESTINI, RVT
[2019-10-25 16:07] LABS: AST(SGOT) 20 U/L (15-37); Alanine Aminotransfer ALT/SGPT 24 U/L (13-56); Albumin, Serum 3.6 g/dL (3.2-5.0); Alkaline Phosphatase 64 U/L (45-117); Bilirubin, Direct 0.37 mg/dL (0.00-0.30); Globulin 3.7 g/dL (2.2-4.2); Protein, Total 7.3 g/dL (6.4-8.2)
[2019-10-25 16:10] LABS: Bedside Glucose 143 mg/dL (70-110)
[2019-10-25 16:21] LABS: Hemoglobin A1c 6.8 % (4.2-6.3)
--- NOTE | 2019-10-25 17:14 | NURSING ---
1705 CALLED PHARMACY FOR DOSE OF TRANDATE FOR BLOOD PRESSURE
[2019-10-25] MEDS: Ondansetron 4 MG/2 ML Vial IV (17:26)
[2019-10-25] MEDS: Famotidine 20 MG Tablet PO (22:20)
[2019-10-25 22:21] LABS: Bedside Glucose 113 mg/dL (70-110)
[2019-10-26] VITALS (24 sets, daily range): BP systolic 102–130; BP diastolic 67–87; PULSE 61–87; RESP 17–26; TEMP 36.2–36.9; O2SAT 92–100; BMI 27.9
[2019-10-26 04:59] LABS: Absolute Lymphocyte Count 2.02 X10^3/uL (0.83-4.51); Absolute Neutrophil Count 3.5 X10^3/uL (2.0-7.7); Basophil# 0.04 X10^3/uL; Basophil% 0.6 % (0-1); Eosinophil# 0.18 X10^3/uL; Eosinophils% 2.9 % (0-5); Hematocrit 40.5 % (37-47); Hemoglobin 12.7 g/dL (12.0-15.0); Lymphocyte # 2.02 X10^3/ul (4.0); Lymphocyte % 32.1 % (19-41); Mean Corp Hgb Conc 31.4 g/dL (32-36); Mean Corpuscular Hgb 28.3 pg (27.0-32.0); Mean Corpuscular Volume 90.4 fL (81-99); Mean Platelet Vol. 9.9 fl (6.2-12.0); Monocyte# 0.57 X10^3/uL; Monocyte% 9.1 % (0-10); NRBC Flagged by Analyzer 0 % (0-5); Neutrophil # 3.47 X10^3/uL (2.7-7.7); Neutrophil % 55.1 % (47-70); Platelet Count 181 K/mm3 (150-450); RBC Distribution Width CV 13.8 % (11.6-14.6); RBC Distribution Width SD 45.2 fl (35.1-43.9); Red Blood Count 4.48 M/mm3 (4.2-5.4); White Blood Count 6.3 K/mm3 (4.4-11.0)
[2019-10-26 05:19] LABS: AST(SGOT) 12 U/L (15-37); Alanine Aminotransfer ALT/SGPT 21 U/L (13-56); Alkaline Phosphatase 52 U/L (45-117); Anion Gap 9 (5-15); BUN 15 mg/dL (7-18); BUN/Creat Ratio 20.8 RATIO (10-20); Calcium,Total 8.5 mg/dL (8.5-10.1); Chloride 109 mmol/L (98-107); Cholesterol 111 mg/dL (200); Creatinine, Serum 0.72 mg/dL (0.55-1.02); EST Glomerular Filtration Rate 88 mL/min (>60); Est Glom Filt Rate - Afr Amer 106 mL/min (>60); Estimated Creatinine Clearance 63.48 ml/min; Globulin 3.1 g/dL (2.2-4.2); Glucose 110 mg/dL (74-106); High Density Lipoprotein 36 mg/dL; Potassium 3.9 mmol/L (3.5-5.1); Protein, Total 6.1 g/dL (6.4-8.2); Sodium Level 145 mmol/L (136-145); Triglycerides 84 mg/dL; Very Low Density Lipoprotein 17 mg/dL (5-40)
--- NOTE | 2019-10-26 06:06 | PN_ITS ---
Subjective: Patient did okay overnight. No hemodynamic instability was reported. Patient did receive a single dose of labetalol secondary to high diastolic pressures. Patient has improved on oxygenation and is currently on room air. Patient continues to have a right facial droop and some aphasia, but nursing believes this is improving. Patient was very hesitant to talk to me this morning. General: Alert, Cooperative, No apparent distress, - - Patient not really answering orientation questions or having conversation. Appears to be frustrated with word finding. HEENT: Atraumatic, PERRLA, EOMI, Normocephalic, - - Right facial droop. Oral: Moist Mucosa, No Gingival or Mucosal Lesions/ Ulcerations Neck: Supple, No JVD, No Nodes, Trachea Midline Lungs: Clear to auscultation, No rhonchi, No wheeze, No rales, - - Symmetric e xpansion. No dullness to percussion. Cardiovascular: Regular rate, Regular Rhythm, Normal S1, Normal S2, No murmurs, No rub noted, No Gallop, - - Echocardiogram is still pending Abdomen: Bowel Sounds Present, Soft, Non Tender, Non-Distended Extremities: No clubbing, No cyanosis, No edema, Capillary Refill Less than 3 Seconds Skin: No rashes, No breakdown Musculoskeletal: No Tenderness to Palpation of Joints or Extremities Lymphatic: No Cervical, Supraclavicular, or Inguinal Adenopathy Neurological: - - NIH of 3 secondary to aphasia, mild dysarthria and right facial droop Psych/Mental Status: Appropriate, Flat Affect Vital Signs Temp Pulse Resp BP Pulse Ox 36.8 C 70 25 H 116/82 H 99 10/26/19 05:00 10/26/19 05:00 10/26/19 05:00 10/26/19 05:00 10/26/19 05:00 Oxygen Flow Rate (L/min) 1 Oxygen Delivery Method Nasal Cannula Weight: 67.1 kg Body Mass Index (BMI) 27.9 Finger Stick Blood Glucose 190 Intake and Output for Last 24 Hours 10/24/19 10/25/19 10/26/19 23:59 23:59 23:59 Intake Total 952.25 / 952.25 50 / 50 Output Total 500 / 500 Balance 452.25 / 452.25 50 / 50 Labs (Last 48 Hours) 10/25/19 10/25/1920 09:40 09:40 09:40 WBC 7.3 RBC 4.89 Hgb 13.9 Hct 42.5 MCV 86.9 MCH 28.4 MCHC 32.7 RDW Std Deviation 42.7 RDW Coeff of Ana 13.7 Plt Count 235 MPV 9.8 Immature Gran % (Auto) 0.300 Neut % (Auto) 58.8 Lymph % (Auto) 33.2 Stephens % (Auto) 6.0 Eos % (Auto) 1.2 Baso % (Auto) 0.5 Absolute Neuts (auto) 4.3 Absolute Lymphs (auto) 2.44 Nucleated RBC % 0 PT 14.4 INR 1.2 APTT 30.4 Sodium 140 Potassium 3.7 Chloride 106 Carbon Dioxide 24.0 Anion Gap 10 BUN 13 Creatinine 0.89 Estim Creat Clear Calc 53.83 Est GFR (MDRD) Af Amer 83 Est GFR (MDRD) Non-Af 69 BUN/Creatinine Ratio 14.6 Glucose 201 H Hemoglobin A1c Calcium 9.2 Total Bilirubin Direct Bilirubin AST ALT Alkaline Phosphatase Troponin I 0.033 Total Protein Albumin Globulin Albumin/Globulin Ratio Triglycerides Cholesterol LDL Cholesterol VLDL Cholesterol HDL Cholesterol COVID-19 ([facility]) POC Glucose 10/25/19 10/25/19 10/25/19 09:40 09:40 10:27 WBC RBC Hgb Hct MCV MCH MCHC RDW Std Deviation RDW Coeff of Ana Plt Count MPV Immature Gran % (Auto) Neut % (Auto) Lymph % (Auto) Stephens % (Auto) Eos % (Auto) Baso % (Auto) Absolute Neuts (auto) Absolute Lymphs (auto) Nucleated RBC % PT INR APTT Sodium Potassium Chloride Carbon Dioxide Anion Gap BUN Creatinine Estim Creat Clear Calc Est GFR (MDRD) Af Amer Est GFR (MDRD) Non-Af BUN/Creatinine Ratio Glucose Hemoglobin A1c 6.8 H Calcium Total Bilirubin 1.30 H Direct Bilirubin 0.37 H AST 20 ALT 24 Alkaline Phosphatase 64 Troponin I Total Protein 7.3 Albumin 3.6 Globulin 3.7 Albumin/Globulin Ratio Triglycerides Cholesterol LDL Cholesterol VLDL Cholesterol HDL Cholesterol COVID-19 (SH[facility]Y) Cancelled POC Glucose 10/25/19 10/25/19 10/25/19 12:23 16:04 22:13 WBC RBC Hgb Hct MCV MCH MCHC RDW Std Deviation RDW Coeff of Ana Plt Count MPV Immature Gran % (Auto) Neut % (Auto) Lymph % (Auto) Stephens % (Auto) Eos % (Auto) Baso % (Auto) Absolute Neuts (auto) Absolute Lymphs (auto) Nucleated RBC % PT INR APTT Sodium Potassium Chloride Carbon Dioxide Anion Gap BUN Creatinine Estim Creat Clear Calc Est GFR (MDRD) Af Amer Est GFR (MDRD) Non-Af BUN/Creatinine Ratio Glucose Hemoglobin A1c Calcium Total Bilirubin Direct Bilirubin AST ALT Alkaline Phosphatase Troponin I Total Protein Albumin Globulin Albumin/Globulin Ratio Triglycerides Cholesterol LDL Cholesterol VLDL Cholesterol HDL Cholesterol COVID-19 (SHERRY) POC Glucose 130 H 143 H 113 H 10/26/19 10/26/19 04:45 04:45 WBC 6.3 RBC 4.48 Hgb 12.7 Hct 40.5 MCV 90.4 MCH 28.3 MCHC 31.4 L RDW Std Deviation 45.2 H RDW Coeff of Ana 13.8 Plt Count 181 MPV 9.9 Immature Gran % (Auto) 0.200 Neut % (Auto) 55.1 Lymph % (Auto) 32.1 Stephens % (Auto) 9.1 Eos % (Auto) 2.9 Baso % (Auto) 0.6 Absolute Neuts (auto) 3.5 Absolute Lymphs (auto) 2.02 Nucleated RBC % 0 PT INR APTT Sodium 145 Potassium 3.9 Chloride 109 H Carbon Dioxide 27.0 Anion Gap 9 BUN 15 Creatinine 0.72 Estim Creat Clear Calc 63.48 Est GFR (MDRD) Af Amer 106 Est GFR (MDRD) Non-Af 88 BUN/Creatinine Ratio 20.8 H Glucose 110 H Hemoglobin A1c Calcium 8.5 Total Bilirubin 0.70 Direct Bilirubin AST 12 L ALT 21 Alkaline Phosphatase 52 Troponin I Total Protein 6.1 L Albumin 3.0 L Globulin 3.1 Albumin/Globulin Ratio 1.0 Triglycerides 84 Cholesterol 111 LDL Cholesterol 58 VLDL Cholesterol 17 HDL Cholesterol 36 L COVID-19 ([facility]Y) POC Glucose Microbiology 10/25/19 10:27 Mucosa - Nasopharyngeal Coronavirus COVID-19 PCR - Final Clinical Impression(s) from Imaging Studies Brain CT 10/25/19 09:31 IMPRESSION: No acute abnormality is seen. N.B. : The above information has been verbally conveyed by Ronald Carranza to Kameron Munguia on 10/25/2019 09:43:22 (ET). Electronically Signed: Ronald Dillon, at 9:45 EDT , Service support , ADDENDUM: 10/25/19 0952 IMPRESSION: No acute abnormality is seen. N.B. : The above information has been verbally conveyed by Ronald Carranza to Kameron Munguia on 10/25/2019 09:43:22 (ET). Electronically Signed: Ronald Carranza, at 9:45 EDT , Service support , Head/Neck CTA 10/25/19 09:32 IMPRESSION: Normal CTA Head and neck with contrast. 1.3 cm x 1.3 cm nodular density in the peripheral lateral aspect of the right upper lobe with bilateral pleural effusions. Electronically Signed: Ronald Carranza, at 10:09 EDT , Service support , Chest X-Ray 10/25/19 10:30 IMPRESSION: Cardiomegaly. Blunting of both clustering angles with findings suggesting a mild degree of CHF. Electronically Signed: Ronald Carranza, at 10:49 EDT , Service support , Medical Necessity - Tobacco Use Smoking Status: Never smoker Tobacco Use: Non-smoker Assessment/Plan All Active Problems (Last Reviewed 06/06/19 @ 15:19 by Jovany Gonzáles) CVA (cerebral vascular accident) (Acute) URI, acute (Acute) Sinusitis (Acute) Bronchitis (Acute) RECOMMENDATIONS: 1. Continue with post TPA protocol 2. Wean oxygen as tolerated 3. Obtain CT chest without contrast following 24 hours after TPA MRI 4. Possible need for thoracentesis for cytology and diagnostic work-up 5. Continue as needed bronchodilators 6. Possible transfer from the intensive care unit if no complications noted on MRI RECOMMENDATIONS: 1. Acute CVA status post TPA Patient presented with an NIH of 7 and currently has an NIH of 3 after TPA. We will continue with the thrombolytic protocol for the next 24 hours. Patient can have an MRI later today at [address] scan. Defer to primary service. Do recommend a neurology consult per stroke guidelines. Echocardiogram is still pending. 2. Possible lung nodule with pleural effusion CTA of the neck is suggestive of a right upper lobe peripherally based nodule. Given patient's history of breast cancer, this would be concerning for a possible metastatic lesion. Patient appears to have significant pleural effusion on the CTA, but this is not impressive on physical exam or chest x-ray. Clinical suspicion for seclusion at the diaphragm. Patient may benefit from a diagnostic thoracentesis on the right versus a CT-guided biopsy if lesion is noted on a CT of the chest. Further recommendations following CT of the chest. 3. Acute hypoxic respiratory insufficiency Unclear etiology at this time. Patient does have a pleural effusion which is suggestive of an etiology. This does not appear to be clinically significant chest x-ray. Patient does not have significant apical emphysematous changes. Patient will have an echocardiogram as part of the stroke work-up, so CHF can be evaluated from that regard. Fluid overload cannot give a pattern of COPD on pulmonary function testing. Patient is on telemetry at this time. We will continue as needed DuoNeb therapy. However, low clinical suspicion for COPD given lack of smoking history. Asthma would be a consideration. 4. Recurrent bronchitis/history of breast CA Complicates care, management, recovery and prognosis. Patient does not have any recent imaging for comparison. Patient reportedly has responded to bronchodilators in the past, so will order PRN DuoNeb. Inpatient E&M: 32864 Subs Hosp L2
[2019-10-26 07:16] LABS: Bedside Glucose 190 mg/dL (70-110)
--- NOTE | 2019-10-26 07:24 | PCM.PN.HOSP ---
Patient Problems: Active and Suspected Problems (Last Reviewed 06/06/19 @ 15:19 by Jovany Gonzáles) CVA (cerebral vascular accident) (Acute) Reason for Visit: Follow-up on stroke, post-TPA Subjective: Patient was seen and examined. No acute events overnight. She still has some expressive aphasia. This appears to be improved compared to yesterday. BP appears to be better. Received 1 dose of labetalol IV last night. Objective: General: Alert, Oriented x3, Cooperative, No apparent distress, off oxygen HEENT: Atraumatic, PERRLA, EOMI, Normocephalic Oral: Moist Mucosa Neck: Supple Lungs: Diminished Cardiovascular: Regular rate, Regular Rhythm, Normal S1, Normal S2 Abdomen: Bowel Sounds Present, Soft, Non Tender, Non-Distended, No Hepato-splenomegaly Extremities: No edema Skin: No rashes, No breakdown Musculoskeletal: No Tenderness to Palpation of Joints or Extremities Neurological: Cranial nerves II-XII grossly intact - except expressive aphasia, Neuro grossly intact Psych/Mental Status: Normal Affect, Appropriate Vitals/I&O's: Vital Signs Temp Pulse Resp BP Pulse Ox 98.2 F 76 25 H 105/73 94 10/26/19 05:00 10/26/19 06:00 10/26/19 06:00 10/26/19 06:00 10/26/19 06:00 Oxygen Flow Rate (L/min) 1 Oxygen Delivery Method Nasal Cannula Weight: 67.4 kg Body Mass Index (BMI) 27.9 Finger Stick Blood Glucose 190 Intake and Output for Last 24 Hours 10/24/19 10/25/19 10/26/19 23:59 23:59 23:59 Intake Total 952.25 / 952.25 50 / 50 Output Total 500 / 500 Balance 452.25 / 452.25 50 / 50 Microbiology Past 72 Hours 10/25/19 10:27 Mucosa - Nasopharyngeal Coronavirus COVID-19 PCR - Final Laboratory Results 10/25/19 09:25: POC Glucose 190 H 10/25/19 09:40: WBC 7.3, RBC 4.89, Hgb 13.9, Hct 42.5, MCV 86.9, MCH 28.4, MCHC 32.7, RDW Std Deviation 42.7, RDW Coeff of Ana 13.7, Plt Count 235, MPV 9.8, Immature Gran % (Auto) 0.300, Neut % (Auto) 58.8, Lymph % (Auto) 33.2, Swain % (Auto) 6.0, Eos % (Auto) 1.2, Baso % (Auto) 0.5, Absolute Neuts (auto) 4.3, Absolute Lymphs (auto) 2.44, Nucleated RBC % 0 10/25/19 09:40: PT 14.4, INR 1.2, APTT 30.4 10/25/19 09:40: Sodium 140, Potassium 3.7, Chloride 106, Carbon Dioxide 24.0, Anion Gap 10, BUN 13, Creatinine 0.89, Estim Creat Clear Calc 53.83, Est GFR (MDRD) Af Amer 83, Est GFR (MDRD) Non-Af 69, BUN/Creatinine Ratio 14.6, Glucose 201 H, Calcium 9.2, Troponin I 0.033 10/25/19 09:40: Total Bilirubin 1.30 H, Direct Bilirubin 0.37 H, AST 20, ALT 24, Alkaline Phosphatase 64, Total Protein 7.3, Albumin 3.6, Globulin 3.7 10/25/19 09:40: Hemoglobin A1c 6.8 H 10/25/19 10:27: COVID-19 (SHERRY) Cancelled 10/25/19 12:23: POC Glucose 130 H 10/25/19 16:04: POC Glucose 143 H 10/25/19 22:13: POC Glucose 113 H 10/26/19 04:45: WBC 6.3, RBC 4.48, Hgb 12.7, Hct 40.5, MCV 90.4, MCH 28.3, MCHC 31.4 L, RDW Std Deviation 45.2 H, RDW Coeff of Ana 13.8, Plt Count 181, MPV 9.9, Immature Gran % (Auto) 0.200, Neut % (Auto) 55.1, Lymph % (Auto) 32.1, Swain % (Auto) 9.1, Eos % (Auto) 2.9, Baso % (Auto) 0.6, Absolute Neuts (auto) 3.5, Absolute Lymphs (auto) 2.02, Nucleated RBC % 0 10/26/19 04:45: Sodium 145, Potassium 3.9, Chloride 109 H, Carbon Dioxide 27.0, Anion Gap 9, BUN 15, Creatinine 0.72, Estim Creat Clear Calc 63.48, Est GFR (MDRD) Af Amer 106, Est GFR (MDRD) Non-Af 88, BUN/Creatinine Ratio 20.8 H, Glucose 110 H, Calcium 8.5, Total Bilirubin 0.70, AST 12 L, ALT 21, Alkaline Phosphatase 52, Total Protein 6.1 L, Albumin 3.0 L, Globulin 3.1, Albumin/Globulin Ratio 1.0, Triglycerides 84, Cholesterol 111, LDL Cholesterol 58, VLDL Cholesterol 17, HDL Cholesterol 36 L Current Medications Acetaminophen (Tylenol) 650 mg PO .X1 PRN PRN Reason: Temp > 99.6 F Albuterol/Ipratropium (Duoneb) 3 ml INHALATION Q4HWA.RT PRN PRN Reason: SHORTNESS OF BREATH Dextrose (D50w Syringe) 0 gm IV X1 PRN; Protocol PRN Reason: Hypoglycemia Diphenhydramine HCl (Benadryl) 50 mg IV .X1 PRN PRN Reason: Allergic Reaction Stop: 10/27/19 10:09 Epinephrine HCl () 0.3 mg IM .X1 PRN PRN Reason: Allergic Reaction Stop: 10/27/19 10:09 Famotidine (Pepcid) 20 mg PO BID ANAHI Last Admin: 10/25/19 22:20 Dose: 20 mg Documented by: Glucagon () 1 mg IM .X1 PRN PRN Reason: Hypoglycemia Famotidine 20 mg/ Sodium (Chloride) 10 mls @ 300 mls/hr IV .X1 PRN PRN Reason: Allergic Reaction Stop: 10/27/19 10:09 Nicardipine/Dextrose (Cardene-Dex 20 Mg/200 Ml Soln) 20 mg in 200 mls @ 50 mls/hr IV .Q4H PRN; Protocol PRN Reason: See Instructions Sodium Chloride () 250 mls @ 15 mls/hr IV .[id number] PRN PRN Reason: Saline Flush Sodium Chloride () 250 mls @ 15 mls/hr IV .[id number] PRN PRN Reason: Additional IVPB Infusion Insulin Human Lispro (Humalog Kwikpen (Bkc)) 0 unit SC ACHS [facility]; Protocol Last Admin: 10/25/19 22:22 Dose: Not Given Documented by: Labetalol HCl (Trandate) 20 mg IV X1 PRN PRN Reason: BLOOD PRESSURE Last Admin: 10/25/19 17:22 Dose: 20 mg Documented by: Labetalol HCl (Trandate) 20 mg IV X1 PRN PRN Reason: BLOOD PRESSURE Methylprednisolone (Solu-Medrol) 125 mg IV .X1 PRN PRN Reason: Allergic Reaction Stop: 10/27/19 10:09 Ondansetron HCl (Zofran) 4 mg IV Q8H PRN PRN PRN Reason: NAUSEA/VOMITING Last Admin: 10/25/19 17:26 Dose: 4 mg Documented by: Sodium Chloride () 10 - 40 ml IV UD PRN PRN Reason: SALINE FLUSH Last Admin: 10/25/19 17:23 Dose: 10 ml Documented by: STROKE Vital Signs/Narrative: Vital Signs Temp Pulse Resp BP Pulse Ox 10/26/19 06:00 76 25 H 105/73 94 10/26/19 05:00 98.2 F 70 25 H 116/82 H 99 10/26/19 04:00 67 17 109/71 100 10/26/19 03:30 69 Medical Necessity - Tobacco Use Smoking Status: Never smoker Tobacco Use: Non-smoker Assessment/Plan All Active Problems (Last Reviewed 06/06/19 @ 15:19 by Jovany Gonzáles) CVA (cerebral vascular accident) (Acute) URI, acute (Acute) Sinusitis (Acute) Bronchitis (Acute) 59 year old F with PMHx of breast CA, hypertension, Type 2 DM who comes in with slurred speech and word-finding difficulty that started the morning of the admission. Last known well at 7:30 in the morning. 1. Acute onset of expressive aphasia likely secondary to CVA NIHSS improved to 3 from 7. Still has a fair amount of expressive aphasia Initial CT of the head was negative, CTA of the head and neck was unremarkable for stenotic lesions Patient was deemed to be a TPA candidate; given TPA on 10/25/19 at 10:19 AM Managed in ICU per post-TPA protocol, no acute events MRI of the head is pending Total cholesterol is 111, LDL 58, VLDL 17, HDL 36 2D echo shows EF of 10 to 15%, global hypokinesis, mild pulmonary hypertension, RVSP is 47 2. Severe LV dysfunction, EF 10 to 15%, not in clinical heart failure Analog Device Designer consulted. Lisinopril on hold for now 3. Hypertension, controlled, will continue to hold off on lisinopril 4. Type II DM on metformin; HgBA1c is 6.8 Continue to hold off on metformin and continue with blood sugar checks and insulin sliding scale 5. History of breast CA, on chemotherapy, with lung metastasis possibly metastatic Needs to be followed up in the outpatient 6. DVT PPx-status post recent TPA, continue with SCDs 7. Code status: Full code Inpatient E&M: 60088 Subs Hosp L2
--- NOTE | 2019-10-26 08:00 | MRI_ITS ---
We are attempting to reach an attending provider to discuss findings. An addendum with communication details will be sent when the communication is complete. STUDY: MRI BRAIN WITHOUT CONTRAST REASON FOR EXAM: Female, 59 years old. cva, 24hr post tpa -- garbled speech TECHNIQUE: Standardized multiplanar fat and water weighted pulse sequences were obtained. COMPARISON: 10/25/2019 FINDINGS: Normal size of the ventricles and extra-axial spaces for the patient''s age. There are a limited number of small white matter hyperintensities, distributed throughout the deep white matter tracts of the cerebral hemispheres, consistent with mild chronic white matter ischemic changes. There is a small area of restricted diffusion involving the posterior left frontal lobe with drop of signal on ADC map, consistent with acute infarction. Normal bilateral basal ganglia. Normal thalami. There is no extra-axial fluid accumulation. Normal flow voids within the major intracranial circulation suggesting patency by spin echo criteria. Normal sella turcica, pituitary gland, infundibular stalk, optic chiasm and hypothalamus. Normal tectal plate and pineal gland. Normal midbrain, stephen and medulla. Normal cerebellum. Normal basal cisterns. MRI/Brain without Contrast IMPRESSION: Acute left frontal small infarct. Electronically Signed: Jacinto Brown MD at 15:55 EDT Tel , Service support ,
--- NOTE | 2019-10-26 09:58 | CASEMGMT ---
Assessment- SW completed assessment at bedside with patient. SW also confirmed addresses and contacts. Living situation- SW lives with her and daughter in a 1 story home with 2 entry steps PCP: Dr Clifford Kate with [facility] Physicians Specialists: Dr Caba and LUC Dallas with Oncology at [facility] Pharmacy: [facility] DME: None ADL's/IADL's: Patient is independent in all activities of daily living. She drives, manages her own meds, bathes herself, cooks, cleans, and does laundry. Past SNF/rehab: None Past HH: None LW: None POA: None Plan: At this time patient's plan is to go home. She will likely need Speech Therapy at discharge. RN CM to follow for d/c planning. Patient does have Breast Cancer. She is taking a chemo pill currently. She reports doing relatively well through the treatment process. Jennifer HUNTER SUPERINTENDENT CAR CONSTRUCTION
--- NOTE | 2019-10-26 10:09 | CASEMGMT ---
SW completed a PHQ9 with patient as she had a Stroke. She scored a 1 which indicates minimal Depression. Jennifer HUNTER MSW
[2019-10-26] MEDS: Famotidine 20 MG Tablet PO ×2 (10:50→21:01)
--- NOTE | 2019-10-26 11:13 | PCM.CONS.C ---
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 She has no previous known cardiac history but does have a history of diabetes, hypertension, lifelong non-smoker, no previous echocardiogram, stress test or catheterization. Patient was recently admitted with new onset aphasia, and found to have an acute embolic stroke. She received TPA and her aphasia has gradually improved to slow dysarthria. She underwent an acute brain CT which showed no acute abnormality, and she received TPA. She is awaiting an MRI. As part of her work-up she underwent a CT of her chest which demonstrated a 1.3X 1.3 cm nodule density in the peripheral lateral aspect of the right upper lobe as well as bilateral small pleural effusions, with work-up ongoing. In addition as part of her work-up she underwent a echocardiogram which I read today which demonstrated severe LV dilatation, severe LV dysfunction with an EF around 10 to 15%, and an estimated RVSP of 47 mmHg. No previous echocardiograms for comparison. On further history the patient states that she was in normal health up until around late June early July where she contracted an upper respiratory tract infection with significant cough with productive sputum. Ever since then she has had shortness of breath, and apparently had ectopic heartbeats identified in her PCPs office Dr. Funk's office. She denied ever being in atrial fibrillation and was not placed on anticoagulation therapy. No additional work-up occurred. Currently she is resting comfortably, awake, alert, answers questions appropriately albeit slowly. [] Past Medical History Allergies/Adverse Reactions: Allergies No Known Allergies Allergy (Verified 10/25/19 09:55) Home Medications: Ambulatory Orders Medication Instructions Recorded lisinopril 20 mg tablet 20 mg PO QDAY 06/26/17 metformin 500 mg tablet 500 mg PO BID 06/26/17 Letrozole 2.5 mg PO DAILY 10/25/19 Past Medical History (Chronic Problems): Chronic Problems (Last Reviewed 06/06/19 @ 15:19 by Jovany Gonzáles) Breast CA (Chronic) Hypertension (Chronic) DM (diabetes mellitus) (Chronic) Surgical History: appendectomy, - - s/p caesarian section, s/p lumpectomy Psychiatric History: No pertinent psych hx 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: No pertinent TENNIS 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 history - *Family History Maternal Family History: Family History (Last Reviewed 06/06/19 @ 15:19 by Jovany Gonzáles) Mother Hypertension Myocardial infarction Father Diabetes Cancer Grandmother Hypertension CVA (cerebral vascular accident) Heart disease Cancer Grandfather Hypertension Colon cancer Cancer Aunt Breast cancer History Items: Heart Disease - [place], Hypertension Paternal Family History: Family History (Last Reviewed 06/06/19 @ 15:19 by Jovany Gonzáles) Mother Hypertension Myocardial infarction Father Diabetes Cancer Grandmother Hypertension CVA (cerebral vascular accident) Heart disease Cancer Grandfather Hypertension Colon cancer Cancer Aunt Breast cancer History Items: Cancer - prostate, Diabetes Lives: Spouse/ Significant Other Smoking Status: Never smoker Tobacco Use: Non-smoker Alcohol: Occasional Drugs: None Review of Systems - Review of Systems General: Denies: Fever, Night Sweats, Fatigue Cardiovascular: Reports: Shortness of Breath with Exertion. Denies: Chest Discomfort, Shortness of Breath, Orthopnea, PND, Peripheral Edema, Palpitations, Lightheadedness, Dizziness, Near Syncope, Syncope Respiratory: Reports: Cough, Sputum Production. Denies: Hemoptysis Gastrointestinal: Denies: Hematemesis, Hematochezia, Melena Genitourinary: Denies: Dysuria, Hematuria Skin: Denies: Rash Subjectve: Patient resting comfortably, no acute distress. Telemetry showed normal sinus rhythm with rare PVCs. Objective: Vital Signs Temp Pulse Resp BP Pulse Ox 97.2 F L 74 22 H 115/76 92 10/26/19 09:00 10/26/19 11:00 10/26/19 11:00 10/26/19 11:00 10/26/19 11:00 Oxygen Flow Rate (L/min) 1 Oxygen Delivery Method Room Air Weight: 148 lb 9.465 oz Body Mass Index (BMI) 27.9 Finger Stick Blood Glucose 190 Intake and Output for Last 24 Hours 10/24/19 10/25/19 10/26/19 23:59 23:59 23:59 Intake Total 952.25 / 952.25 50 / 50 Output Total 500 / 500 Balance 452.25 / 452.25 50 / 50 General: Awake, Alert, Oriented x 3 HEENT: PERRL, EOMI, Sclera Non Icteric Neck: Supple, Good ROM, No Lymph Node Enlargement Lungs: Clear to auscultation, Rales - Roosevelt Bases Cardiovascular: Regular Rhythm, Normal S1, Normal S2, No Murmurs, No Rubs, No Gallops 10/25/19 09:40: Total Bilirubin 1.30 H, Direct Bilirubin 0.37 H 10/25/19 09:40: Hemoglobin A1c 6.8 H 10/26/19 04:45: WBC 6.3, RBC 4.48, Hgb 12.7, Hct 40.5, MCV 90.4, MCH 28.3, MCHC 31.4 L, Plt Count 181, MPV 9.9, Immature Gran % (Auto) 0.200, Neut % (Auto) 55.1, Lymph % (Auto) 32.1, Nelson % (Auto) 9.1, Eos % (Auto) 2.9, Baso % (Auto) 0.6, Absolute Neuts (auto) 3.5, Nucleated RBC % 0 10/26/19 04:45: Sodium 145, Potassium 3.9, Chloride 109 H, Carbon Dioxide 27.0, Anion Gap 9, BUN 15, Creatinine 0.72, Est GFR (MDRD) Af Amer 106, Est GFR (MDRD) Non-Af 88, BUN/Creatinine Ratio 20.8 H, Glucose 110 H, Calcium 8.5, Total Bilirubin 0.70, Triglycerides 84, Cholesterol 111, LDL Cholesterol 58, VLDL Cholesterol 17, HDL Cholesterol 36 L Rhythm: EKG: Normal sinus rhythm, left anterior hemiblock, nonspecific ST and T wave changes, no previous myocardial infarction, poor R wave progression across the precordium. ECHO: As above Stress Test: Cardiac Cath: PCI: CT Surgery: Holter monitor: EPS: PPM: CXR: Chest CT Scan: Assessment/Plan 1. Severe LV dysfunction: The patient has newly discovered severe LV dysfunction superimposed on recent, probable cardioembolic stroke requiring TPA with slow recovery. Patient has had no previous echocardiograms to her knowledge, and has never been told that she had previous LV dysfunction. She has never had a heart catheterization. The patient did have what appears to be a viral type illness in late June early July, which may have caused a viral cardiomyopathy. At this point I would not recommend diagnostic coronary angiogram until she has more thoroughly recovered from her CVA. In the meantime I recommend starting her on Coreg, and would recommend anticoagulation with either Eliquis or Coumadin pending the outcome of neurology consultation and approval. If the patient stroke was cardioembolic in nature, she is at high risk for recurrent CVA. Once the patient is recovered from her CVA in approximately 3 to 4 weeks, we can proceed with diagnostic left heart catheterization. In the meantime I would recommend consideration of a LifeVest for possible ventricular arrhythmia prevention and treatment. I requested this be evaluated by Vibrynt. Unless the patient has any sustained ventricular arrhythmias or evidence of atrial fibrillation I would recommend holding off on amiodarone therapy at this time. If the patient's heart catheterization shows no obstructive disease in her LV dysfunction does not improve after 3 months, she will require an AICD prophylactically. In addition I recommend that we check her TSH and T4 to determine if she has any thyroid induced cardiomyopathy. In addition we will slowly add on lisinopril if she is tolerating her Coreg therapy. Patient has some minor crackles in her lungs, as well as evidence of at least mild pulmonary hypertension by echocardiogram, and I would recommend initiating Lasix 20 mg p.o. daily and a 1500 cc fluid restriction. 2. Hyperlipidemia: Given his diabetes and LV dysfunction she requires aggressive LDL reduction. Recommend obtaining a fast lipid profile and treating to keep her LDL less than 70 with statin based medications. She apparently was not on statins in the past. 3. Thank you very much for the opportunity to participate in the cardiac care of your patient. Consultation time took place between 1030 and 11:20 AM. Inpatient E&M: 74709 In Hosp L2
[2019-10-26 11:57] LABS: Thyroid Stim Hormone (TSH) 2.02 uIU/mL (0.358-3.74)
[2019-10-26 12:15] LABS: Bedside Glucose 155 mg/dL (70-110)
[2019-10-26] MEDS: Insulin Lispro 100 UNIT/ML INSULN.PEN SC (12:18)
--- NOTE | 2019-10-26 14:15 | CT_ITS ---
STUDY: CT CHEST WITHOUT CONTRAST REASON FOR EXAM: Female, 59 years old. LUNG NODULE WITH HX BREAST CA in 2013. Recent stroke 10/25/19 with aphasia. Hx of diabetes and HTN RADIATION DOSAGE (If Supplied By Facility): CTDIvol = ( 10.80 ) mGy, DLP = ( 367.01 ) mGycm TECHNIQUE: Transaxial imaging was performed without the administration of intravenous contrast material. Multiplanar coronal and sagittal images were reformatted. Individualized dose optimization techniques were used for this CT. COMPARISON: None. FINDINGS: Small bilateral pleural effusions slightly greater on the left side. There is a 1.1 cm x 1.1 cm irregular nodular density in the peripheral lateral aspect of the right upper lobe. Mild degree of groundglass appearance in the lower lobes although no focal consolidation is seen. Mild degree of right basilar atelectasis. Small pericardial effusion. Moderate cardiomegaly. There are multiple small lymph nodes within the mediastinum, which are normal in size and morphology most compatible with reactive lymph hyperplasia. Calcified right hilar lymph nodes. There is prominence of the pulmonary hilar arteries without peripheral pulmonary vascular congestion, suggesting pulmonary hypertension. Normal aorta arch and descending thoracic aorta. There are multi-level degenerative changes of the thoracic spine. There is no demonstrated abnormality of the visualized upper abdomen. CT/Chest without Contrast IMPRESSION: Small pericardial effusion. Cardiomegaly. Bilateral pleural effusions worse on the right side with the bibasilar atelectasis more prominent on the right side. 1.1 cm x 1.1 cm irregular nodular density in the peripheral lateral aspect of the right upper lobe. Electronically Signed: Ronald Carranza, at 15:56 EDT , Service support ,
[2019-10-26] MEDS: Midazolam 2 MG/2 ML Syringe 1 MG IV (14:19)
[2019-10-26] MEDS: 0.9% Saline Lock 10 ML Syringe IV (14:19)
--- NOTE | 2019-10-26 14:25 | NURSING ---
To MRI via bed w/ non destructive tester
--- NOTE | 2019-10-26 15:49 | NURSING ---
Returned from MRI/CT
[2019-10-26] MEDS: Furosemide 20 MG Tablet PO (16:25)
[2019-10-26 16:30] LABS: Bedside Glucose 129 mg/dL (70-110)
[2019-10-26] MEDS: Aspirin 81 MG TAB.CHEW PO (16:36)
[2019-10-26] MEDS: Carvedilol 3.125 MG TABLET PO (21:01)
[2019-10-26] MEDS: Atorvastatin Calcium 20 MG Tablet PO (21:01)
[2019-10-26 22:56] LABS: Bedside Glucose 123 mg/dL (70-110)
[2019-10-27] VITALS (7 sets, daily range): BP systolic 100–113; BP diastolic 65–88; PULSE 57–75; RESP 12–16; TEMP 36.6–37.2; O2SAT 92–97; BMI 27.9
[2019-10-27 06:10] LABS: Absolute Lymphocyte Count 1.62 X10^3/uL (0.83-4.51); Absolute Neutrophil Count 3.3 X10^3/uL (2.0-7.7); Basophil# 0.03 X10^3/uL; Basophil% 0.5 % (0-1); Eosinophil# 0.22 X10^3/uL; Eosinophils% 3.9 % (0-5); Hematocrit 37.1 % (37-47); Hemoglobin 11.8 g/dL (12.0-15.0); Lymphocyte # 1.62 X10^3/ul (4.0); Lymphocyte % 28.8 % (19-41); Mean Corp Hgb Conc 31.8 g/dL (32-36); Mean Corpuscular Hgb 28.4 pg (27.0-32.0); Mean Corpuscular Volume 89.2 fL (81-99); Monocyte# 0.43 X10^3/uL; Monocyte% 7.7 % (0-10); NRBC Flagged by Analyzer 0 % (0-5); Neutrophil # 3.32 X10^3/uL (2.7-7.7); Neutrophil % 59.1 % (47-70); Platelet Count 171 K/mm3 (150-450); RBC Distribution Width SD 44.8 fl (35.1-43.9); Red Blood Count 4.16 M/mm3 (4.2-5.4); White Blood Count 5.6 K/mm3 (4.4-11.0)
[2019-10-27 06:38] LABS: AST(SGOT) 18 U/L (15-37); Alanine Aminotransfer ALT/SGPT 18 U/L (13-56); Albumin, Serum 2.9 g/dL (3.2-5.0); Alkaline Phosphatase 48 U/L (45-117); Anion Gap 4 (5-15); BUN 16 mg/dL (7-18); BUN/Creat Ratio 24.4 RATIO (10-20); Calcium,Total 8.2 mg/dL (8.5-10.1); Chloride 110 mmol/L (98-107); Creatinine, Serum 0.66 mg/dL (0.55-1.02); EST Glomerular Filtration Rate 98 mL/min (>60); Est Glom Filt Rate - Afr Amer 119 mL/min (>60); Estimated Creatinine Clearance 69.26 ml/min; Globulin 2.9 g/dL (2.2-4.2); Glucose 111 mg/dL (74-106); Potassium 3.7 mmol/L (3.5-5.1); Protein, Total 5.8 g/dL (6.4-8.2); Sodium Level 144 mmol/L (136-145)
[2019-10-27 06:40] LABS: Bedside Glucose 110 mg/dL (70-110)
--- NOTE | 2019-10-27 07:20 | PCM.PN.PUL ---
Patient Problems: Active and Suspected Problems (Last Reviewed 06/06/19 @ 15:19 by Jovany Gonzáles) CVA (cerebral vascular accident) (Acute) LV dysfunction (Acute) Subjective: Patient did well overnight. Patient has been tolerating room air without difficulty. MRI yesterday did show a small left frontal infarct. Patient also had an echocardiogram showing significantly reduced EF, so cardiology was consulted. Patient believes her dyspnea is slightly improved compared to previous. Objective: Personally reviewed the CT scan of the chest. This does show the pleural effusion. Lung nodule previously noted appears to be a small focal infiltrate more than a solid mass on my personal review. No significant emphysematous changes are appreciated. - Physical Exam Vitals/I&O's: Vital Signs Temp Pulse Resp BP Pulse Ox 36.6 C 57 L 12 111/67 95 10/27/19 04:00 10/27/19 04:00 10/27/19 04:00 10/27/19 04:00 10/27/19 04:00 Oxygen Flow Rate (L/min) 1 Oxygen Delivery Method Room Air Weight: 66.8 kg Body Mass Index (BMI) 27.9 Finger Stick Blood Glucose 190 Intake and Output for Last 24 Hours 10/25/19 10/26/19 10/27/19 23:59 23:59 23:59 Intake Total 952.25 / 952.25 800 / 800 100 / 100 Output Total 500 / 500 100 / 100 Balance 452.25 / 452.25 700 / 700 100 / 100 General: Alert, Oriented x3, Cooperative, No apparent distress, - - Aphasia and dysarthria appear to be improving HEENT: Atraumatic, PERRLA, EOMI, Normocephalic, - - No scleral icterus or injection. Still with slight facial droop. Oral: Moist Mucosa, No Gingival or Mucosal Lesions/ Ulcerations Neck: Supple, No JVD, No Nodes, Trachea Midline Lungs: Clear to auscultation, Normal air movement, No rhonchi, No wheeze, No rales, - - Symmetric expansion Cardiovascular: Regular rate, Regular Rhythm, Normal S1, Normal S2, No murmurs, No rub noted, No Gallop Abdomen: Bowel Sounds Present, Soft, Non Tender, Non-Distended Extremities: No clubbing, No cyanosis, No edema Skin: No rashes, No breakdown Musculoskeletal: No Tenderness to Palpation of Joints or Extremities Lymphatic: No Cervical, Supraclavicular, or Inguinal Adenopathy Neurological: - - Aphasia may be slightly improved compared to yesterday. Psych/Mental Status: Alert and oriented to time, place, person, mood and affect Microbiology Past 72 Hours 10/25/19 10:27 Mucosa - Nasopharyngeal Coronavirus COVID-19 PCR - Final Laboratory Results 10/26/19 04:45: TSH 2.02 10/26/19 12:10: POC Glucose 155 H 10/26/19 16:25: POC Glucose 129 H 10/26/19 21:00: POC Glucose 123 H 10/27/19 05:40: WBC 5.6, RBC 4.16 L, Hgb 11.8 L, Hct 37.1, MCV 89.2, MCH 28.4, MCHC 31.8 L, RDW Std Deviation 44.8 H, RDW Coeff of Ana 14.0, Plt Count 171, MPV 10.0, Immature Gran % (Auto) 0.000, Neut % (Auto) 59.1, Lymph % (Auto) 28.8, [place] % (Auto) 7.7, Eos % (Auto) 3.9, Baso % (Auto) 0.5, Absolute Neuts (auto) 3.3, Absolute Lymphs (auto) 1.62, Nucleated RBC % 0 10/27/19 05:40: Sodium 144, Potassium 3.7, Chloride 110 H, Carbon Dioxide 30.0, Anion Gap 4 L, BUN 16, Creatinine 0.66, Estim Creat Clear Calc 69.26, Est GFR (MDRD) Af Amer 119, Est GFR (MDRD) Non-Af 98, BUN/Creatinine Ratio 24.4 H, Glucose 111 H, Calcium 8.2 L, Total Bilirubin 0.60, AST 18, ALT 18, Alkaline Phosphatase 48, Total Protein 5.8 L, Albumin 2.9 L, Globulin 2.9, Albumin/Globulin Ratio 1.0 10/27/19 06:35: POC Glucose 110 Current Medications Albuterol/Ipratropium (Duoneb) 3 ml INHALATION Q4HWA.RT PRN PRN Reason: SHORTNESS OF BREATH Aspirin (Aspirin, Baby) 81 mg PO DAILY@0800 [facility] Last Admin: 10/26/19 16:36 Dose: 81 mg Documented by: Atorvastatin Calcium (Lipitor) 20 mg PO QHS [facility] Last Admin: 10/26/19 21:01 Dose: 20 mg Documented by: Carvedilol (Coreg) 3.125 mg PO BID [facility] Last Admin: 10/26/19 21:01 Dose: 3.125 mg Documented by: Dextrose (D50w Syringe) 0 gm IV X1 PRN; Protocol PRN Reason: Hypoglycemia Enoxaparin Sodium (Lovenox) 40 mg SC DAILY [facility] Famotidine (Pepcid) 20 mg PO BID [facility] Last Admin: 10/26/19 21:01 Dose: 20 mg Documented by: Furosemide (Lasix) 20 mg PO DAILY [facility] Last Admin: 10/26/19 16:25 Dose: 20 mg Documented by: Glucagon () 1 mg IM .X1 PRN PRN Reason: Hypoglycemia Sodium Chloride () 250 mls @ 15 mls/hr IV .[id number] PRN PRN Reason: Saline Flush Sodium Chloride () 250 mls @ 15 mls/hr IV .[id number] PRN PRN Reason: Additional IVPB Infusion Insulin Human Lispro (Humalog Kwikpen (Bkc)) 0 unit SC ACHS [facility]; Protocol Last Admin: 10/27/19 06:40 Dose: Not Given Documented by: Ondansetron HCl (Zofran) 4 mg IV Q8H PRN PRN PRN Reason: NAUSEA/VOMITING Last Admin: 10/25/19 17:26 Dose: 4 mg Documented by: Sodium Chloride () 10 - 40 ml IV UD PRN PRN Reason: SALINE FLUSH Last Admin: 10/26/19 14:19 Dose: 10 ml Documented by: Clinical Impression(s) from Imaging Studies Brain MRI 10/26/19 08:00 IMPRESSION: Acute left frontal small infarct. Electronically Signed: Jacinto Brown MD at 15:55 EDT Tel , Service support , ADDENDUM: 10/26/19 1607 IMPRESSION: Acute left frontal small infarct. N.B. : The above information has been verbally conveyed by Jacinto Brown MD to Karla Ferreira RN, on 10/26/2019 15:56:56 (ET). Electronically Signed: Jacinto Brown MD at 15:55 EDT Tel , Service support , Chest CT 10/26/19 14:15 IMPRESSION: Small pericardial effusion. Cardiomegaly. Bilateral pleural effusions worse on the right side with the bibasilar atelectasis more prominent on the right side. 1.1 cm x 1.1 cm irregular nodular density in the peripheral lateral aspect of the right upper lobe. Electronically Signed: Ronald Carranza, at 15:56 EDT , Service support , Medical Necessity - Tobacco Use Smoking Status: Never smoker Tobacco Use: Non-smoker Assessment/Plan All Active Problems (Last Reviewed 06/06/19 @ 15:19 by Jovany Gonzáles) CVA (cerebral vascular accident) (Acute) LV dysfunction (Acute) URI, acute (Acute) Sinusitis (Acute) Bronchitis (Acute) RECOMMENDATIONS: 1. Likely reasonable to repeat CT scan of the chest in 3 months 2. Walking oximetry prior to discharge 3. Await cardiology work-up 4. Could consider thoracentesis for cytology and diagnostic work-up prior to heart catheterization 5. Continue as needed bronchodilators RECOMMENDATIONS: 1. Acute CVA status post TPA Patient presented with an NIH of 7 and currently has an NIH of 3 after TPA. Complications noted from thrombolytic protocol. Patient does have a small left frontal CVA noted on MRI. Neurology has been consulted. High clinical suspicion for cardioembolic phenomenon given significant depressed EF. 2. Possible lung nodule with pleural effusion Personal review of the CT scan shows that the right upper lobe lesion appears to be more of an infiltrate or local inflammation as opposed to a solid mass. It would be reasonable to monitor with serial CT scans given patient's malignant history. If cardiology is planning on any stent placement, would recommend evaluation by interventional radiology to see if thoracentesis for diagnostic and therapeutic testing would be possible. If exudate, may need to proceed with CT-guided biopsy of right upper lobe lesion prior to placing a stent. This would avoid potential complications of bleeding risk precluding CT-guided biopsy with a recent stent. 3. Acute hypoxic respiratory insufficiency Unclear etiology at this time. Patient does have a pleural effusion which is suggestive of an etiology. This does not appear to be clinically significant chest x-ray. Patient does not have significant apical emphysematous changes. Patient does have a significant decrease and EF compared to expected. Clinical suspicion for transudate etiology of pleural effusions, but not unreasonable to proceed with thoracentesis prior to any cardiac intervention as stent placement would delay any intervention for 3 to 6 months at a minimum. 4. Recurrent bronchitis/history of breast CA Complicates care, management, recovery and prognosis. Patient does not have any recent imaging for comparison. Patient reportedly has responded to bronchodilators in the past, so will order PRN DuoNeb. Inpatient E&M: [id number] [facility] L2
[2019-10-27] MEDS: Carvedilol 3.125 MG TABLET PO (08:19)
[2019-10-27] MEDS: Furosemide 20 MG Tablet PO (08:19)
[2019-10-27] MEDS: Famotidine 20 MG Tablet PO (08:19)
[2019-10-27] MEDS: Enoxaparin 40 MG/0.4 ML Syringe SC (08:21)
[2019-10-27] MEDS: Aspirin 81 MG TAB.CHEW PO (08:21)
--- NOTE | 2019-10-27 10:53 | CASEMGMT ---
Addendum entered by Destinee Mckeon 10/27/19 16:03: Haven RAM updated on all, voices understanding. Beth RAM CM Addendum entered by Destinee Mckeon 10/27/19 15:54: Pt to be sent home on Eliquis at discharge and [facility]. Call to [facility] and per tech, Prior Auth is needed for Eliquis at this time and call to [facility] to try to obtain PA. PA is denied at this time d/t pt not trying any other anti-coagulants prior. Yazan DURON-C aware and now sends script for Xarelto for pt at this time. Per [facility], the Xarelto also needs PA. So this YO PALOMO placed call back to [facility] and the PA is obtained for Xarelto at this time. Call to [facility] pharmacy to notify and have them run again and per tech, pt's co-pay for Xarelto is $462. Pt updated on all at this time, voices understanding and is writing down all at this time. Pt provided with Xarelto $10 co-pay card at this time and aware that pt will have to pay more then $10 each month as card has a max out of pocket that they will cover, voices understanding. Pt voices no further questions/concerns/needs at this time. Beth RAM CM Addendum entered by Destinee Mckeon 10/27/19 10:57: Pt states no further questions/concerns/needs at this time. OP speech therapy script faxed to [facility] at this time. Original to pt at this time. Linda RAM CM Original Note: Per Dr Rogers's note, pt to be sent home on [facility]est at discharge and per Susan Gordon from [facility], she sent all info last pm to [employer] rep. Ryland, [employer] rep, on floor at this time to speak with pt and he states that RN will be here sometime today to place vest prior to pt discharge. Pt also to be set up with OP speech therapy at discharge and would like [facility] at this time. Beth RAM CM
[2019-10-27 11:20] LABS: Bedside Glucose 100 mg/dL (70-110)
--- NOTE | 2019-10-27 12:05 | PCM.PN.HOSP ---
<Luan Perez - Last Filed: 10/27/19 12:05> Patient Problems: Active and Suspected Problems (Last Reviewed 06/06/19 @ 15:19 by Jovany Gonzáles) CVA (cerebral vascular accident) (Acute) LV dysfunction (Acute) Reason for Visit: cva Subjective: ongoing expressive aphasia per pt she knows what she wants to say but cannot get it out or form sentences well. she denies focal weakness, vision or hearing changes, numbness/tingling, ataxia, dysphagia. She has no SOB and no palp. Vitals/I&O's: Vital Signs Temp Pulse Resp BP Pulse Ox 99.0 F 64 16 113/88 H 92 10/27/19 08:00 10/27/19 08:00 10/27/19 08:00 10/27/19 08:00 10/27/19 08:21 Oxygen Flow Rate (L/min) 1 Oxygen Delivery Method Room Air Weight: 147 lb 4.301 oz Body Mass Index (BMI) 27.9 Finger Stick Blood Glucose 190 Intake and Output for Last 24 Hours 10/25/19 10/26/19 10/27/19 23:59 23:59 23:59 Intake Total 952.25 / 952.25 800 / 800 800 / 800 Output Total 500 / 500 100 / 100 Balance 452.25 / 452.25 700 / 700 800 / 800 General: Alert, Oriented x3, Cooperative HEENT: Atraumatic, PERRLA, EOMI, Normocephalic Neck: Supple, No JVD, Negative Carotid Bruits Lungs: Clear to auscultation, Normal air movement Cardiovascular: Regular rate, No murmurs Abdomen: Bowel Sounds Present, Soft, Non Tender Extremities: No edema, Capillary Refill Less than 3 Seconds Skin: No rashes, No breakdown Musculoskeletal: No Tenderness to Palpation of Joints or Extremities Neurological: Cranial nerves II-XII grossly intact, - - aphasia Psych/Mental Status: Normal Affect, Appropriate, Alert and oriented to time, place, person, mood and affect Microbiology Past 72 Hours 10/25/19 10:27 Mucosa - Nasopharyngeal Coronavirus COVID-19 PCR - Final Laboratory Results 10/26/19 12:10: POC Glucose 155 H 10/26/19 16:25: POC Glucose 129 H 10/26/19 21:00: POC Glucose 123 H 10/27/19 05:40: WBC 5.6, RBC 4.16 L, Hgb 11.8 L, Hct 37.1, MCV 89.2, MCH 28.4, MCHC 31.8 L, RDW Std Deviation 44.8 H, RDW Coeff of Ana 14.0, Plt Count 171, MPV 10.0, Immature Gran % (Auto) 0.000, Neut % (Auto) 59.1, Lymph % (Auto) 28.8, [place] % (Auto) 7.7, Eos % (Auto) 3.9, Baso % (Auto) 0.5, Absolute Neuts (auto) 3.3, Absolute Lymphs (auto) 1.62, Nucleated RBC % 0 10/27/19 05:40: Sodium 144, Potassium 3.7, Chloride 110 H, Carbon Dioxide 30.0, Anion Gap 4 L, BUN 16, Creatinine 0.66, Estim Creat Clear Calc 69.26, Est GFR (MDRD) Af Amer 119, Est GFR (MDRD) Non-Af 98, BUN/Creatinine Ratio 24.4 H, Glucose 111 H, Calcium 8.2 L, Total Bilirubin 0.60, AST 18, ALT 18, Alkaline Phosphatase 48, Total Protein 5.8 L, Albumin 2.9 L, Globulin 2.9, Albumin/Globulin Ratio 1.0 10/27/19 06:35: POC Glucose 110 10/27/19 11:08: POC Glucose 100 Current Medications Albuterol/Ipratropium (Duoneb) 3 ml INHALATION Q4HWA.RT PRN PRN Reason: SHORTNESS OF BREATH Aspirin (Aspirin, Baby) 81 mg PO DAILY@0800 [facility] Last Admin: 10/27/19 08:21 Dose: 81 mg Documented by: Atorvastatin Calcium (Lipitor) 20 mg PO QHS [facility] Last Admin: 10/26/19 21:01 Dose: 20 mg Documented by: Carvedilol (Coreg) 3.125 mg PO BID [facility] Last Admin: 10/27/19 08:19 Dose: 3.125 mg Documented by: Dextrose (D50w Syringe) 0 gm IV X1 PRN; Protocol PRN Reason: Hypoglycemia Enoxaparin Sodium (Lovenox) 40 mg SC DAILY [facility] Last Admin: 10/27/19 08:21 Dose: 40 mg Documented by: Famotidine (Pepcid) 20 mg PO BID [facility] Last Admin: 10/27/19 08:19 Dose: 20 mg Documented by: Furosemide (Lasix) 20 mg PO DAILY [facility] Last Admin: 10/27/19 08:19 Dose: 20 mg Documented by: Glucagon () 1 mg IM .X1 PRN PRN Reason: Hypoglycemia Sodium Chloride () 250 mls @ 15 mls/hr IV .[id number] PRN PRN Reason: Saline Flush Sodium Chloride () 250 mls @ 15 mls/hr IV .[id number] PRN PRN Reason: Additional IVPB Infusion Insulin Human Lispro (Humalog Kwikpen (Bkc)) 0 unit SC ACHS [facility]; Protocol Last Admin: 10/27/19 11:18 Dose: Not Given Documented by: Magnesium Hydroxide (Milk Of Magnesia) 30 ml PO DAILY PRN PRN Reason: Constipation Ondansetron HCl (Zofran) 4 mg IV Q8H PRN PRN PRN Reason: NAUSEA/VOMITING Last Admin: 10/25/19 17:26 Dose: 4 mg Documented by: Sodium Chloride () 10 - 40 ml IV UD PRN PRN Reason: SALINE FLUSH Last Admin: 10/26/19 14:19 Dose: 10 ml Documented by: STROKE Vital Signs/Narrative: Vital Signs Pulse Ox 10/27/19 08:21 92 Medical Necessity - Tobacco Use Smoking Status: Never smoker Tobacco Use: Non-smoker Assessment/Plan All Active Problems (Last Reviewed 06/06/19 @ 15:19 by Jovany Gonzáles) CVA (cerebral vascular accident) (Acute) LV dysfunction (Acute) URI, acute (Acute) Sinusitis (Acute) Bronchitis (Acute) 1. Acute CVA - acute left frontal small infarct per MRI. SOC consult completed. If afib start eliquis. If no afib dual antiplatelets. continue statin. echo done. 2. Pleural effusion and pulmonary nodule - outpatient thoracentesis, pulm follow up. small pericardial effusion. hx breast cancer so need to evaluate for malignancy. 3. Cardiomyopathy - ef 15%. unclear etiology. cardiology following. outpatient heart cath after thora. 4. HTN - stable 5. T2DM - a1c 6.8. metformin held. ssi 6. Hx Breast CA, continue chemo. possible mets as per #2 DVT ppx: SCDs DC planning: will need o/p speech therapy This patient was seen by Luan Perez PA-C under the supervision of Dr. Rondon. <Keri Rondon - Last Filed: 10/27/19 14:05> Vitals/I&O's: Vital Signs Temp Pulse Resp BP Pulse Ox 99.0 F 64 16 113/88 H 92 10/27/19 08:00 10/27/19 08:00 10/27/19 08:00 10/27/19 08:00 10/27/19 08:21 Oxygen Flow Rate (L/min) 1 Oxygen Delivery Method Room Air Weight: 66.8 kg Body Mass Index (BMI) 27.9 Finger Stick Blood Glucose 190 Intake and Output for Last 24 Hours 10/25/19 10/26/19 10/27/19 23:59 23:59 23:59 Intake Total 952.25 / 952.25 800 / 800 800 / 800 Output Total 500 / 500 100 / 100 Balance 452.25 / 452.25 700 / 700 800 / 800 Microbiology Past 72 Hours 10/25/19 10:27 Mucosa - Nasopharyngeal Coronavirus COVID-19 PCR - Final Laboratory Results 10/26/19 16:25: POC Glucose 129 H 10/26/19 21:00: POC Glucose 123 H 10/27/19 05:40: WBC 5.6, RBC 4.16 L, Hgb 11.8 L, Hct 37.1, MCV 89.2, MCH 28.4, MCHC 31.8 L, RDW Std Deviation 44.8 H, RDW Coeff of Ana 14.0, Plt Count 171, MPV 10.0, Immature Gran % (Auto) 0.000, Neut % (Auto) 59.1, Lymph % (Auto) 28.8, [place] % (Auto) 7.7, Eos % (Auto) 3.9, Baso % (Auto) 0.5, Absolute Neuts (auto) 3.3, Absolute Lymphs (auto) 1.62, Nucleated RBC % 0 10/27/19 05:40: Sodium 144, Potassium 3.7, Chloride 110 H, Carbon Dioxide 30.0, Anion Gap 4 L, BUN 16, Creatinine 0.66, Estim Creat Clear Calc 69.26, Est GFR (MDRD) Af Amer 119, Est GFR (MDRD) Non-Af 98, BUN/Creatinine Ratio 24.4 H, Glucose 111 H, Calcium 8.2 L, Total Bilirubin 0.60, AST 18, ALT 18, Alkaline Phosphatase 48, Total Protein 5.8 L, Albumin 2.9 L, Globulin 2.9, Albumin/Globulin Ratio 1.0 10/27/19 06:35: POC Glucose 110 10/27/19 11:08: POC Glucose 100 Current Medications Albuterol/Ipratropium (Duoneb) 3 ml INHALATION Q4HWA.RT PRN PRN Reason: SHORTNESS OF BREATH Aspirin (Aspirin, Baby) 81 mg PO DAILY@0800 [facility] Last Admin: 10/27/19 08:21 Dose: 81 mg Documented by: Atorvastatin Calcium (Lipitor) 20 mg PO QHS [facility] Last Admin: 10/26/19 21:01 Dose: 20 mg Documented by: Carvedilol (Coreg) 3.125 mg PO BID [facility] Last Admin: 10/27/19 08:19 Dose: 3.125 mg Documented by: Dextrose (D50w Syringe) 0 gm IV X1 PRN; Protocol PRN Reason: Hypoglycemia Enoxaparin Sodium (Lovenox) 40 mg SC DAILY [facility] Last Admin: 10/27/19 08:21 Dose: 40 mg Documented by: Famotidine (Pepcid) 20 mg PO BID [facility] Last Admin: 10/27/19 08:19 Dose: 20 mg Documented by: Furosemide (Lasix) 20 mg PO DAILY [facility] Last Admin: 10/27/19 08:19 Dose: 20 mg Documented by: Glucagon () 1 mg IM .X1 PRN PRN Reason: Hypoglycemia Sodium Chloride () 250 mls @ 15 mls/hr IV .[id number] PRN PRN Reason: Saline Flush Sodium Chloride () 250 mls @ 15 mls/hr IV .[id number] PRN PRN Reason: Additional IVPB Infusion Insulin Human Lispro (Humalog Kwikpen (Bkc)) 0 unit SC ACHS [facility]; Protocol Last Admin: 10/27/19 11:18 Dose: Not Given Documented by: Magnesium Hydroxide (Milk Of Magnesia) 30 ml PO DAILY PRN PRN Reason: Constipation Ondansetron HCl (Zofran) 4 mg IV Q8H PRN PRN PRN Reason: NAUSEA/VOMITING Last Admin: 10/25/19 17:26 Dose: 4 mg Documented by: Sodium Chloride () 10 - 40 ml IV UD PRN PRN Reason: SALINE FLUSH Last Admin: 10/26/19 14:19 Dose: 10 ml Documented by: Assessment/Plan This patient was seen in conjunction with DOMI Orellana. I have independently interviewed and examined the patient and reviewed pertinent historical, laboratory, and other data. Please refer to DOMI Orellana note for his patient's presentation, findings, and recommendations. I have reviewed and his note and concur with his documentation Patient was seen and examined. She feels improved. Her dysarthria is improving. No A. fib on telemetry. Some PACs/PVCs Patient is getting life vest today Physical Exam: Gen: Comfortable, not pale, not jaundiced CVS:HS I +II, regular, no murmurs RESP: Diminished at lung bases GI: BS present and normal, soft, nontender, no palpable organs EXT:No edema ADVICE CLERK: Dysarthric, no facial droop, power is 5/5 in all extremities ASSESSMENT: 1. Acute CVA 2. Bilateral pleural effusion/pulmonary nodule 3. Cardiomyopathy, EF 10-15% 4. Hyperetnsion 5. Type 2 DM 6. H/o breast CA with possible mets Plan: Continue on aspirin, eliquis in 5 days and discontinue aspirin Discharge on Life[facility] Outpatient speech therapy Continue on Lasix, Coreg, Lisinopril 5mg daily on account of relative hypotension Follow-up in outpatient pulmo and cardiology
--- NOTE | 2019-10-27 12:53 | PCM.PN.CARD ---
Subjectve: Patient doing well this afternoon, sitting up in a chair eating her lunch. Telemetry negative. Slowly improving with her speech. Tentative plans are for the patient to be discharged home for speech therapy at [facility]. MRI reviewed which showed small focal acute left frontal infarct. Objective: Vital Signs Temp Pulse Resp BP Pulse Ox 99.0 F 64 16 113/88 H 92 10/27/19 08:00 10/27/19 08:00 10/27/19 08:00 10/27/19 08:00 10/27/19 08:21 Oxygen Flow Rate (L/min) 1 Oxygen Delivery Method Room Air Weight: 147 lb 4.301 oz Body Mass Index (BMI) 27.9 Finger Stick Blood Glucose 190 Intake and Output for Last 24 Hours 10/25/19 10/26/19 10/27/19 23:59 23:59 23:59 Intake Total 952.25 / 952.25 800 / 800 800 / 800 Output Total 500 / 500 100 / 100 Balance 452.25 / 452.25 700 / 700 800 / 800 General: Awake, Alert, Oriented x 3 HEENT: PERRL, EOMI, Sclera Non Icteric Neck: Supple, Good ROM, No Lymph Node Enlargement Lungs: Clear to auscultation Cardiovascular: Regular Rhythm, Normal S1, Normal S2, No Murmurs, No Rubs, No Gallops Vascular: No Carotid Bruits, Normal Femoral Pulses, Normal Radial Pulses, Normal Dorsalis Pedal Pulse, Normal Posterior Tibial Pulses Abdomen: Bowel Sounds Present, Soft, Non Tender, No HSM, No Organomegaly Extremities: No Cyanosis, No Clubbing, No edema Neurological: No Focal Motor or Sensory Deficit 10/27/19 05:40: WBC 5.6, RBC 4.16 L, Hgb 11.8 L, Hct 37.1, MCV 89.2, MCH 28.4, MCHC 31.8 L, Plt Count 171, MPV 10.0, Immature Gran % (Auto) 0.000, Neut % (Auto) 59.1, Lymph % (Auto) 28.8, [place] % (Auto) 7.7, Eos % (Auto) 3.9, Baso % (Auto) 0.5, Absolute Neuts (auto) 3.3, Nucleated RBC % 0 10/27/19 05:40: Sodium 144, Potassium 3.7, Chloride 110 H, Carbon Dioxide 30.0, Anion Gap 4 L, BUN 16, Creatinine 0.66, Est GFR (MDRD) Af Amer 119, Est GFR (MDRD) Non-Af 98, BUN/Creatinine Ratio 24.4 H, Glucose 111 H, Calcium 8.2 L, Total Bilirubin 0.60 Rhythm: EKG: ECHO: Stress Test: Cardiac Cath: PCI: CT Surgery: Holter monitor: EPS: PPM: CXR: Chest CT Scan: Medical Necessity - Tobacco Use Smoking Status: Never smoker Tobacco Use: Non-smoker Assessment/Plan 1. Severe LV dysfunction: The patient has newly discovered severe LV dysfunction superimposed on recent, probable cardioembolic stroke requiring TPA with slow recovery. Patient has had no previous echocardiograms to her knowledge, and has never been told that she had previous LV dysfunction. She has never had a heart catheterization. The patient did have what appears to be a viral type illness in late June early July, which may have caused a viral cardiomyopathy. At this point I would not recommend diagnostic coronary angiogram until she has more thoroughly recovered from her CVA. In the meantime I recommend starting her on Coreg, and would recommend anticoagulation with either Eliquis or Coumadin pending the outcome of neurology consultation and approval. If the patient stroke was cardioembolic in nature, she is at high risk for recurrent CVA without anticoagulation. Once the patient is recovered from her CVA in approximately 3 to 4 weeks, we can proceed with diagnostic left heart catheterization. In the meantime I would recommend consideration of a LifeVest for possible ventricular arrhythmia prevention and treatment. I requested this be evaluated by [facility] who have agreed that she is a good candidate. Would recommend placement of LifeVest prior to discharge home. Unless the patient has any sustained ventricular arrhythmias or evidence of atrial fibrillation I would recommend holding off on amiodarone therapy at this time. If the patient's heart catheterization shows no obstructive disease and if her LV dysfunction does not improve after 3 months, she will require an AICD prophylactically. Her TSH is normal. In addition we will slowly add on lisinopril if she is tolerating her Coreg therapy. Patient has some minor crackles in her lungs, as well as evidence of at least mild pulmonary hypertension by echocardiogram, and I would recommend initiating Lasix 20 mg p.o. daily and a 1500 cc fluid restriction. 2. Hyperlipidemia: Given his diabetes and LV dysfunction she requires aggressive LDL reduction. Her LDL is 58 and HDL is 36. Continue present management. 3. Thank you very much for the opportunity to participate in the cardiac care of your patient. Patient may be discharged home once her LifeVest arrives and is applied. Patient will follow-up with Dr. Rogers going forward in the office in 2 to 3 weeks time. Inpatient E&M: [id number] Subs Hosp L2
--- NOTE | 2019-10-27 13:54 | PCM.DC ---
- Discharge Diagnoses Current Active Problems: Current Active and Chronic Problems (Last Reviewed 06/06/19 @ 15:19 by Jovany Gonzáles) CVA (cerebral vascular accident) (Acute) Breast CA (Chronic) Hypertension (Chronic) DM (diabetes mellitus) (Chronic) LV dysfunction (Acute) You will use the following diet at home:: Cardiac Your food should be the consistency of: Regular Your liquids should be the consistency of: Regular/Thin Discharge Activity: Return to Normal Activity Additional Instructions: Start eliquis in 5 days. Stop aspirin when you start eliquis. Continue outpatient speech therapy. Allergies/Adverse Reactions: Allergies No Known Allergies Allergy (Verified 10/25/19 09:55) Medications to take at Discharge metformin 500 mg tablet 500 mg PO BID 06/26/17 Letrozole 2.5 mg PO DAILY 10/25/19 Apixaban [Eliquis] 5 mg PO BID #60 tab.ds.pk 10/27/19 Aspirin [Aspirin, Baby] 81 mg PO DAILY@0800 tab.chew 10/27/19 Atorvastatin Calcium [Lipitor] 20 mg PO QHS #30 tab 10/27/19 Carvedilol [Coreg (Beta Rowan)] 3.125 mg PO BID #60 tab 10/27/19 Famotidine [Pepcid] 20 mg PO BID #60 tab 10/27/19 Furosemide [Lasix] 20 mg PO DAILY #30 tab 10/27/19 Lisinopril 20 mg PO QDAY #0 10/27/19 The following prescriptions were given: Carvedilol [Coreg (Beta Rowan)] 3.125 mg PO BID #60 tab Transmission Status: Pending to [id number] Apixaban [Eliquis] 5 mg PO BID #60 tab.ds.pk Transmission Status: Pending to [facility] 181 Furosemide [Lasix] 20 mg PO DAILY #30 tab Transmission Status: Pending to [facility] 181 Atorvastatin Calcium [Lipitor] 20 mg PO QHS #30 tab Transmission Status: Pending to [facility] 181 Famotidine [Pepcid] 20 mg PO BID #60 tab Transmission Status: Pending to [facility] Primary Care Physician: Clifford Funk MD [Primary Care Provider] - Please follow up with your Primary Care Physician in: 1-2 weeks Test Results: Test results from this visit will be discussed in further detail at your follow-up appointment, if applicable. Please Follow Up With: Uriel Rogers MD When: as directed Proposed Discharge Date: 10/27/19
--- NOTE | 2019-10-27 13:56 | DS.PCM_ITS ---
<Luan Perez - Last Filed: 10/27/19 15:02> Discharge Date and Diagnosis - Problem List Patient Problems: Active and Suspected Problems (Last Reviewed 06/06/19 @ 15:19 by Jovany Gonzáles) CVA (cerebral vascular accident) (Acute) LV dysfunction (Acute) Date of Admission: 10/25/19 Date of Discharge: 10/27/19 - Primary Discharge Diagnosis Active and Suspected Problems (Last Reviewed 06/06/19 @ 15:19 by Jovany Gonzáles) CVA Cardiomyopathy unclear etiology Lung nodule pleural effusion hx breast cancer. Dmt2 HTN - Secondary Discharge Diagnosis Chronic Problems (Last Reviewed 06/06/19 @ 15:19 by Jovany Gonzáles) Breast CA (Chronic) Hypertension (Chronic) DM (diabetes mellitus) (Chronic) Hospital Course and Treatment Imaging Results: CT/Brain/Head without Contrast IMPRESSION: No acute abnormality is seen. N.B. : The above information has been verbally conveyed by Ronald Carranza to Kameron Munguia on 10/25/2019 09:43:22 (ET). IMAGING: CT/CTA Head AND Neck W/ Contrast IMPRESSION: Normal CTA Head and neck with contrast. 1.3 cm x 1.3 cm nodular density in the peripheral lateral aspect of the right upper lobe with bilateral pleural effusions. RAD/Chest 1 View IMPRESSION: Cardiomegaly. Blunting of both clustering angles with findings suggesting a mild degree of CHF. 2D Echo: Interpretation Summary Severely dilated left ventricle. The estimated ejection fraction is 10-15 %. There is severe global hypokinesis of the left ventricle. Mild to moderate global right ventricular systolic dysfunction. The left atrium is mildly enlarged. Bubble contrast study negative for right to left interatrial shunt. Mild (1+) eccentric mitral valve insufficiency. Mild to moderate (1-2+) tricuspid valve insufficiency. Right ventricular systolic pressure estimated to be 47 mmHg. Mild pulmonary hypertension. Trivial aortic valve insufficiency. The inferior vena cava is dilated Dr Fortune notified of results The study was technically difficult. Contrast injection was performed. There is no comparison study available. MRI/Brain without Contrast IMPRESSION: Acute left frontal small infarct. N.B. : The above information has been verbally conveyed by Jacinto Brown MD to Karla Ferreira RN, on 10/26/2019 15:56:56 (ET). CT/Chest without Contrast IMPRESSION: Small pericardial effusion. Cardiomegaly. Bilateral pleural effusions worse on the right side with the bibasilar atelectasis more prominent on the right side. 1.1 cm x 1.1 cm irregular nodular density in the peripheral lateral aspect of the right upper lobe. Consults: Neuro - SOC teleneurology pulm - [place] cardio - rogers Operations: None Procedures: 2-D Echocardiogram, - - tpa Summary of Care Provided: Hospital Course: The patient is a 59 year old F with pmhx as above who presetned to the ER with c/o new aphasia. [facility] neuro recommended tpa which was given. She was admitted to the ICU for post TPA protocol. She had some but not full improvement in her speech. MRI showed a small acute left frontal infarct. Echo showed EF 15%. Cardiology was consulted. 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 Cardiology recommended oral anticoagulation and a heart cath as an outpatient. A lung nodule was noted on the head /neck CTA, and there was also pleural effusion. Pulm was consulted. This will need an outpatient thoracentesis prior to her heart cath to evaluate for possible malignancy given her hx of breast cancer. She was placed on aspirin and statin. She will use the aspirin until she starts eliquis, which will be in five days. She will need to continue outpatient speech therapy. She was discharged home in stable condition and will need follow up with her PCP in 1-2 weeks, cardiology as directed, pulmonology in 1-2 weeks, and neurology in 2 weeks. This patient was seen by Luan Perez PA-C under the supervision of Dr. Rondon [] Patient Problems: Active and Suspected Problems (Last Reviewed 06/06/19 @ 15:19 by Jovany Gonzáles) CVA (cerebral vascular accident) (Acute) LV dysfunction (Acute) - Physical Exam Vitals/I&O's: Vital Signs Temp Pulse Resp BP Pulse Ox 99.0 F 64 16 113/88 H 92 10/27/19 08:00 10/27/19 08:00 10/27/19 08:00 10/27/19 08:00 10/27/19 08:21 Oxygen Flow Rate (L/min) 1 Oxygen Delivery Method Room Air Weight: 147 lb 4.301 oz Body Mass Index (BMI) 27.9 Finger Stick Blood Glucose 190 Intake and Output for Last 24 Hours 10/25/19 10/26/19 10/27/19 23:59 23:59 23:59 Intake Total 952.25 / 952.25 800 / 800 800 / 800 Output Total 500 / 500 100 / 100 Balance 452.25 / 452.25 700 / 700 800 / 800 General: Alert, Oriented x3, Cooperative HEENT: Atraumatic, PERRLA, EOMI, Normocephalic Neck: Supple, No JVD, Negative Carotid Bruits Lungs: Clear to auscultation, Normal air movement Cardiovascular: Regular rate, No murmurs Abdomen: Bowel Sounds Present, Soft, Non Tender Extremities: No edema, Capillary Refill Less than 3 Seconds Skin: No rashes, No breakdown Musculoskeletal: No Tenderness to Palpation of Joints or Extremities Neurological: Cranial nerves II-XII grossly intact, - - aphasia Psych/Mental Status: Normal Affect, Appropriate, Alert and oriented to time, place, person, mood and affect Microbiology Past 72 Hours 10/25/19 10:27 Mucosa - Nasopharyngeal Coronavirus COVID-19 PCR - Final Laboratory Results 10/26/19 16:25: POC Glucose 129 H 10/26/19 21:00: POC Glucose 123 H 10/27/19 05:40: WBC 5.6, RBC 4.16 L, Hgb 11.8 L, Hct 37.1, MCV 89.2, MCH 28.4, MCHC 31.8 L, RDW Std Deviation 44.8 H, RDW Coeff of Ana 14.0, Plt Count 171, MPV 10.0, Immature Gran % (Auto) 0.000, Neut % (Auto) 59.1, Lymph % (Auto) 28.8, [place] % (Auto) 7.7, Eos % (Auto) 3.9, Baso % (Auto) 0.5, Absolute Neuts (auto) 3.3, Absolute Lymphs (auto) 1.62, Nucleated RBC % 0 10/27/19 05:40: Sodium 144, Potassium 3.7, Chloride 110 H, Carbon Dioxide 30.0, Anion Gap 4 L, BUN 16, Creatinine 0.66, Estim Creat Clear Calc 69.26, Est GFR (MDRD) Af Amer 119, Est GFR (MDRD) Non-Af 98, BUN/Creatinine Ratio 24.4 H, Glucose 111 H, Calcium 8.2 L, Total Bilirubin 0.60, AST 18, ALT 18, Alkaline Phosphatase 48, Total Protein 5.8 L, Albumin 2.9 L, Globulin 2.9, Albumin/Globulin Ratio 1.0 10/27/19 06:35: POC Glucose 110 10/27/19 11:08: POC Glucose 100 Current Medications Albuterol/Ipratropium (Duoneb) 3 ml INHALATION Q4HWA.RT PRN PRN Reason: SHORTNESS OF BREATH Aspirin (Aspirin, Baby) 81 mg PO DAILY@0800 [facility] Last Admin: 10/27/19 08:21 Dose: 81 mg Documented by: Atorvastatin Calcium (Lipitor) 20 mg PO QHS [facility] Last Admin: 10/26/19 21:01 Dose: 20 mg Documented by: Carvedilol (Coreg) 3.125 mg PO BID [facility] Last Admin: 10/27/19 08:19 Dose: 3.125 mg Documented by: Dextrose (D50w Syringe) 0 gm IV X1 PRN; Protocol PRN Reason: Hypoglycemia Enoxaparin Sodium (Lovenox) 40 mg SC DAILY [facility] Last Admin: 10/27/19 08:21 Dose: 40 mg Documented by: Famotidine (Pepcid) 20 mg PO BID [facility] Last Admin: 10/27/19 08:19 Dose: 20 mg Documented by: Furosemide (Lasix) 20 mg PO DAILY [facility] Last Admin: 10/27/19 08:19 Dose: 20 mg Documented by: Glucagon () 1 mg IM .X1 PRN PRN Reason: Hypoglycemia Sodium Chloride () 250 mls @ 15 mls/hr IV .[id number] PRN PRN Reason: Saline Flush Sodium Chloride () 250 mls @ 15 mls/hr IV .[id number] PRN PRN Reason: Additional IVPB Infusion Insulin Human Lispro (Humalog Kwikpen (Bkc)) 0 unit SC ACHS [facility]; Protocol Last Admin: 10/27/19 11:18 Dose: Not Given Documented by: Magnesium Hydroxide (Milk Of Magnesia) 30 ml PO DAILY PRN PRN Reason: Constipation Ondansetron HCl (Zofran) 4 mg IV Q8H PRN PRN PRN Reason: NAUSEA/VOMITING Last Admin: 10/25/19 17:26 Dose: 4 mg Documented by: Sodium Chloride () 10 - 40 ml IV UD PRN PRN Reason: SALINE FLUSH Last Admin: 10/26/19 14:19 Dose: 10 ml Documented by: Discharge Diet: Low fat/ Low Cholesterol, 2000 mg Sodium Diet Discharge Activity: Return to Normal Activity Home Medications: Medications to take at Discharge metformin 500 mg tablet 500 mg PO BID 06/26/17 Letrozole 2.5 mg PO DAILY 10/25/19 Apixaban [Eliquis] 5 mg PO BID #60 tab.ds.pk 10/27/19 Aspirin [Aspirin, Baby] 81 mg PO DAILY@0800 tab.chew 10/27/19 Atorvastatin Calcium [Lipitor] 20 mg PO QHS #30 tab 10/27/19 Carvedilol [Coreg (Beta Rowan)] 3.125 mg PO BID #60 tab 10/27/19 Famotidine [Pepcid] 20 mg PO BID #60 tab 10/27/19 Furosemide [Lasix] 20 mg PO DAILY #30 tab 10/27/19 Lisinopril 5 mg PO DAILY #30 tab 10/27/19 Lisinopril 20 mg PO QDAY #0 10/27/19 Following Prescrptions Were Given to Patient: Carvedilol [Coreg (Beta Rowan)] 3.125 mg PO BID #60 tab Transmission Status[facility] Apixaban [Eliquis] 5 mg PO BID #60 tab.ds.pk Transmission Status: Received by [facility] 181 Furosemide [Lasix] 20 mg PO DAILY #30 tab Transmission Status: Received by [facility] Atorvastatin Calcium [Lipitor] 20 mg PO QHS #30 tab Transmission Status: Received by [facility] 1812 Lisinopril 5 mg PO DAILY #30 tab Transmission Status: Received by [facility]12 Famotidine [Pepcid] 20 mg PO BID #60 tab Transmission Status: [facility] Primary Care Physician: Clifford Funk MD [Primary Care Provider] - Please follow up with your Primary Care Physician in: 1-2 weeks Please Follow Up With: Uriel Rogers MD When: as directed Disposition: Home Minutes spent on discharge:: 35 Patient Condition:: Stable Medical Necessity - Tobacco Use Smoking Status: Never smoker Tobacco Use: Non-smoker Meaningful Use Info Meaningful Use Diagnoses (Choose all that apply): None applicable <Keri Rondon - Last Filed: 10/27/19 15:12> Discharge Date and Diagnosis - Primary Discharge Diagnosis Active and Suspected Problems (Last Reviewed 06/06/19 @ 15:19 by Jovany Gonzáles) CVA (cerebral vascular accident) (Acute) LV dysfunction (Acute) - Secondary Discharge Diagnosis Chronic Problems (Last Reviewed 06/06/19 @ 15:19 by Jovany Gonzáles) Breast CA (Chronic) Hypertension (Chronic) DM (diabetes mellitus) (Chronic) Hospital Course and Treatment Summary of Care Provided: This patient was seen in conjunction with DOMI Orellana. I have independently interviewed and examined the patient and reviewed pertinent historical, laboratory, and other data. Please refer to DOMI Orellana note for his patient's presentation, findings, and recommendations. I have reviewed and his note and concur with his documentation 59-year-old female with past medical history of type II DM, hypertension who was admitted that with new onset aphasia. Patient was a TPA candidate and received TPA on/130/2 0. Post TPA, patient was managed in ICU with no acute complaint. MRI showed small acute left frontal infarct. 2D echo showed EF of 10 to 15%. Cardiology was consulted. Patient continued to be stable. No atrial fibrillation was noted on telemetry. Her work-up also showed new lung nodule as well as pleural effusion. She was started on aspirin and statin. Cardiology recommended start of coagulation. Patient will start Eliquis 5 days post discharge. [facility] She will follow-up with c ardiology for possible cardiac cath. Also follow-up with log buncher with repeat CT scan for possible biopsy and thoracocentesis. She was discharged to follow-up with outpatient speech therapy. The day of discharge, patient was seen and examined. No acute event. Her aphasia/dysarthria was improving. Physical Exam: Gen:Comfortable, not pale, not jaundiced CVS:HS I +II, regular, no murmurs RESP: CTA GI: BS present and normal, soft, nontender, no palpable organs EXT:No edema - Physical Exam Vitals/I&O's: Vital Signs Temp Pulse Resp BP Pulse Ox 99.0 F 64 16 113/88 H 92 10/27/19 08:00 10/27/19 08:00 10/27/19 08:00 10/27/19 08:00 10/27/19 08:21 Oxygen Flow Rate (L/min) 1 Oxygen Delivery Method Room Air Weight: 66.8 kg Body Mass Index (BMI) 27.9 Finger Stick Blood Glucose 190 Intake and Output for Last 24 Hours 10/25/19 10/26/19 10/27/19 23:59 23:59 23:59 Intake Total 952.25 / 952.25 800 / 800 800 / 800 Output Total 500 / 500 100 / 100 Balance 452.25 / 452.25 700 / 700 800 / 800 Microbiology Past 72 Hours 10/25/19 10:27 Mucosa - Nasopharyngeal Coronavirus COVID-19 PCR - Final Laboratory Results 10/26/19 16:25: POC Glucose 129 H 10/26/19 21:00: POC Glucose 123 H 10/27/19 05:40: WBC 5.6, RBC 4.16 L, Hgb 11.8 L, Hct 37.1, MCV 89.2, MCH 28.4, MCHC 31.8 L, RDW Std Deviation 44.8 H, RDW Coeff of Ana 14.0, Plt Count 171, MPV 10.0, Immature Gran % (Auto) 0.000, Neut % (Auto) 59.1, Lymph % (Auto) 28.8, [place] % (Auto) 7.7, Eos % (Auto) 3.9, Baso % (Auto) 0.5, Absolute Neuts (auto) 3.3, Absolute Lymphs (auto) 1.62, Nucleated RBC % 0 10/27/19 05:40: Sodium 144, Potassium 3.7, Chloride 110 H, Carbon Dioxide 30.0, Anion Gap 4 L, BUN 16, Creatinine 0.66, Estim Creat Clear Calc 69.26, Est GFR (MDRD) Af Amer 119, Est GFR (MDRD) Non-Af 98, BUN/Creatinine Ratio 24.4 H, Glucose 111 H, Calcium 8.2 L, Total Bilirubin 0.60, AST 18, ALT 18, Alkaline Phosphatase 48, Total Protein 5.8 L, Albumin 2.9 L, Globulin 2.9, Albumin/Globulin Ratio 1.0 05/14/20 06:35: POC Glucose 110 10/27/19 11:08: POC Glucose 100 Current Medications Albuterol/Ipratropium (Duoneb) 3 ml INHALATION Q4HWA.RT PRN PRN Reason: SHORTNESS OF BREATH Aspirin (Aspirin, Baby) 81 mg PO DAILY@0800 [facility] Last Admin: 10/27/19 08:21 Dose: 81 mg Documented by: Atorvastatin Calcium (Lipitor) 20 mg PO QHS [facility] Last Admin: 10/26/19 21:01 Dose: 20 mg Documented by: Carvedilol (Coreg) 3.125 mg PO BID [facility] Last Admin: 10/27/19 08:19 Dose: 3.125 mg Documented by: Dextrose (D50w Syringe) 0 gm IV X1 PRN; Protocol PRN Reason: Hypoglycemia Enoxaparin Sodium (Lovenox) 40 mg SC DAILY [facility] Last Admin: 10/27/19 08:21 Dose: 40 mg Documented by: Famotidine (Pepcid) 20 mg PO BID [facility] Last Admin: 10/27/19 08:19 Dose: 20 mg Documented by: Furosemide (Lasix) 20 mg PO DAILY [facility] Last Admin: 10/27/19 08:19 Dose: 20 mg Documented by: Glucagon () 1 mg IM .X1 PRN PRN Reason: Hypoglycemia Sodium Chloride () 250 mls @ 15 mls/hr IV .[id number] PRN PRN Reason: Saline Flush Sodium Chloride () 250 mls @ 15 mls/hr IV .[id number] PRN PRN Reason: Additional IVPB Infusion Insulin Human Lispro (Humalog Kwikpen (Bkc)) 0 unit SC ACHS [facility]; Protocol Last Admin: 10/27/19 11:18 Dose: Not Given Documented by: Magnesium Hydroxide (Milk Of Magnesia) 30 ml PO DAILY PRN PRN Reason: Constipation Ondansetron HCl (Zofran) 4 mg IV Q8H PRN PRN PRN Reason: NAUSEA/VOMITING Last Admin: 10/25/19 17:26 Dose: 4 mg Documented by: Sodium Chloride () 10 - 40 ml IV UD PRN PRN Reason: SALINE FLUSH Last Admin: 10/26/19 14:19 Dose: 10 ml Documented by: Inpatient E&M: [id number] [facility]
[2019-10-27 16:31] LABS: Bedside Glucose 103 mg/dL (70-110)
--- NOTE | 2019-10-28 09:50 | CASEMGMT ---
YO PALOMO Discharge F/U Phone Call LACE: 10 Strata: 3 Discharge date: 10/27/2019 Call date: 10/28/2019 Call time: [phone] Admission dx: CVA Pt's answered phone and states that pt 'had a good night.' Per , pt is in the bathroom at this time. He states that they picked up all meds last night and Xarelto was only $10. states that they are aware not to start Xarelto until 11/01/2019. Pt to phone at this time and speech is somewhat improved since yesterday. Pt states no questions regarding discharge instructions/medications at this time. Pt states that Dr. Rogers's office called to set up appt this am and plans to get other appts set up today. Pt aware that [facility] should be calling her to set up 1st OP speech appt, voices understanding. Pt states no problems with LifeVest yet at this time but states that the nurse is coming out again today to go over all instructions with and family as well. Pt/ voice no further questions/concerns/needs at this time. [place] PALOMO
== END 2019-10-27 18:00 | disposition home or self-care (01) | DRG 62 ==
LOC: ED 10:17 → ICU 10:49 → PCU 10-26 18:57
PROVIDERS: Internal Medicine Cardiovascular Disease; Admitting Provider Internal Medicine; Emergency Provider Emergency Medicine; PCP Family Medicine; Visit Provider Internal Medicine
DX: I63.40 Cerebral infarction due to embolism of unspecified cerebral artery (principal); C78.00 Secondary malignant neoplasm of unspecified lung; I42.9 Cardiomyopathy, unspecified; J90 Pleural effusion, not elsewhere classified; I10 Essential (primary) hypertension; R47.01 Aphasia; E11.69 Type 2 diabetes mellitus with other specified complication; M19.90 Unspecified osteoarthritis, unspecified site; Z85.3 Personal history of malignant neoplasm of breast; R09.02 Hypoxemia; R29.707 NIHSS score 7; R29.810 Facial weakness; E78.5 Hyperlipidemia, unspecified
CPT/HCPCS: 36415; 70450; 70496; 70498; 70551; 71045; 71250; 80048; 80053; 80061; 80076; 82962; 83036; 84443; 84484; 85025; 85610; 85730; 87635; 92507; 92523; 92526; 93005; 93306; 97162; 97166; 97802; 99282; G2023; J2997; J7030; Q9957; Q9967; A4216; C8929; J2405; U0002

== ENCOUNTER → 2019-11-16 11:53 | Outpatient (CLI) | payer OTHER, SELFPAY ==
[2019-11-10 11:03] VITALS: BMI 27.1
--- NOTE | 2019-11-16 11:57 | US_ITS ---
STUDY: SUPERFICIAL ULTRASOUND - RIGHT PLEURAL AREA. REASON FOR EXAM: Female, 59 years old. PLEURAL EFFUSION SURVEY TECHNIQUE: A superficial ultrasound was performed with real-time and static camp-scale imaging. COMPARISON: None. FINDINGS: Assessment for pleural effusion for possible thoracentesis. No pleural effusion is seen. US/Chest IMPRESSION: No pleural effusion is seen. Electronically Signed: Ronald Carranza, at 15:36 EDT , Service support ,
[2019-11-16 12:50] VITALS: BP 130/92; PULSE 76; RESP 14; TEMP 37.2; O2SAT 97
== END ==
PROVIDERS: PCP Family Medicine; Referring Provider Nurse Practitioner Acute Care; Visit Provider Nurse Practitioner Acute Care
DX: J90 Pleural effusion, not elsewhere classified (principal)
CPT/HCPCS: 76604

== ENCOUNTER → 2019-12-12 09:51 | Outpatient (CLI) | payer OTHER, SELFPAY ==
[2019-11-10 11:03] VITALS: BMI 27.1
[2019-12-02 08:01] VITALS: BMI 27.1
--- NOTE | 2019-12-12 09:54 | ECHOD_ITS ---
Reason For Study: CHF Procedure This was a 2D Doppler, Color Flow transthoracic echocardiogram. Myocardial strain analysis was performed in this exam to aid in the assessment of cardiac function. Technically difficult study, attempted to use Definity to enhance image quality but nurse was unable to place IV after several attempts. Exam performed in department. Left Ventricle Severely dilated left ventricle. The estimated ejection fraction is 10-15 %. Stage 1 diastolic dysfunction. There is severe global hypokinesis of the left ventricle. Right Ventricle Normal size and thickness. Normal systolic function. Atria Normal left atrium. Normal right atrium. Normal atrial septum. Mitral Valve The mitral valve is structurally normal. No prolapse or stenosis seen. Trivial mitral valve insufficiency. Tricuspid Valve Normal tricuspid valve. Mild (1+) tricuspid valve insufficiency. Right ventricular systolic pressure estimated to be 28 mmHg. Aortic Valve Trisinus/trileaflet aortic valve. Trivial aortic valve insufficiency. Pulmonic Valve Normal pulmonic valve. Great Vessels Normal aortic root. Normal arch. Normal inferior vena cava. Inferior vena cava collapse with sniff. Pericardium/Pleural No pericardial effusion. MMode/2D Measurements & Calculations LVIDd: 6.3 cm IVSd: 1.1 cm LA dimension: 4.1 cm LVIDs: 5.5 cm LVPWd: 1.3 cm FS: 12.5 % LAV(MOD-bp): 67.1 ml LVAd ap4: 33.2 cm2 SV(MOD-sp4): 29.6 ml LAV(MOD-bp) Indexed: 41.4 ml/m2 EDV(MOD-sp4): 130.6 ml LAV(MOD-sp2): 69.3 ml EDV(sp4-el): 137.9 ml LAV(MOD-sp4): 60.7 ml LVAs ap4: 28.5 cm2 ESV(MOD-sp4): 101.0 ml ESV(sp4-el): 102.7 ml EF(MOD-sp4): 22.7 % EF(sp4-el): 25.5 % SV(sp4-el): 35.2 ml LA A4 area: 19.9 cm2 RA A4 area: 18.0 cm2 Time Measurements MV dec time: 0.15 sec Doppler Measurements & Calculations MV E max kirill: 81.2 cm/sec Lat Peak E' Kirill: 1.5 cm/sec Med Peak E' Kirill: 3.1 cm/sec MV A max kirill: 25.1 cm/sec E/E' lat: 55.5 E/E' med: 25.9 MV E/A: 3.2 MV V2 max: 90.6 cm/sec MV P1/2t max kirill: 90.6 cm/sec Ao V2 max: 91.9 cm/sec MV max P.3 mmHg MV P1/2t: 91.0 msec Ao max P.4 mmHg MV V2 mean: 51.3 cm/sec Ao V2 mean: 62.8 cm/sec MV mean P.2 mmHg MV dec slope: 291.7 cm/sec2 Ao mean P.8 mmHg MV V2 VTI: 25.1 cm MVA(P1/2t): 2.4 cm2 Ao V2 VTI: 15.9 cm AI max kirill: 407.7 cm/sec LV V1 max: 61.7 cm/sec PA V2 max: 71.0 cm/sec AI max P.5 mmHg LV V1 max P.5 mmHg AI dec slope: 214.6 cm/sec2 LV V1 mean P.74 mmHg AI P1/2t: 556.4 msec LV V1 mean: 39.7 cm/sec LV V1 VTI: 9.9 cm TR max kirill: 242.0 cm/sec TR max P.4 mmHg Interpretation Summary Severely dilated left ventricle. The estimated ejection fraction is 10-15 %. Stage 1 diastolic dysfunction. There is severe global hypokinesis of the left ventricle. Trivial mitral valve insufficiency. Mild (1+) tricuspid valve insufficiency. Right ventricular systolic pressure estimated to be 28 mmHg. Trivial aortic valve insufficiency. Compared to echo report dated 10/26/2019 LV function has remained the same, RVSP has improved from 47 to 28 mm Hg. Ordering Physician: Uriel Rogers Referring Physician: Clifford Kate Performed By: Shedlon Esquivel RCS
== END ==
PROVIDERS: PCP Family Medicine; Referring Provider Internal Medicine Cardiovascular Disease; Visit Provider Internal Medicine Cardiovascular Disease
DX: I42.8 Other cardiomyopathies (principal); I51.9 Heart disease, unspecified
CPT/HCPCS: 93306; Q9957; A4216

== ENCOUNTER 2020-01-06 07:54 | Day surgery (SDC) | payer OTHER, SELFPAY ==
[2020-01-02 08:50] VITALS: BMI 27.3
[2020-01-02 15:14] LABS: Hemoglobin 13.2 g/dL (12.0-15.0); Mean Corpuscular Hgb 28.6 pg (27.0-32.0); Mean Corpuscular Volume 86.6 fL (81-99); Mean Platelet Vol. 9.9 fl (6.2-12.0); Platelet Count 182 K/mm3 (150-450); RBC Distribution Width CV 14.6 % (11.6-14.6); RBC Distribution Width SD 45.4 fl (35.1-43.9); Red Blood Count 4.62 M/mm3 (4.2-5.4)
[2020-01-02 15:21] LABS: International Normalized Ratio 2.4; Prothrombin Time (Protime)PT. 25.7 SECONDS (11.7-14.9)
[2020-01-02 15:22] LABS: Partial Thromboplast Time 43.9 Seconds (24.1-36.2)
[2020-01-02 16:23] LABS: Anion Gap 6 (5-15); BUN 13 mg/dL (7-18); BUN/Creat Ratio 16.2 RATIO (10-20); Calcium,Total 8.7 mg/dL (8.5-10.1); Chloride 106 mmol/L (98-107); EST Glomerular Filtration Rate 78 mL/min (>60); Est Glom Filt Rate - Afr Amer 94 mL/min (>60); Glucose 103 mg/dL (74-106); Potassium 3.9 mmol/L (3.5-5.1); Sodium Level 137 mmol/L (136-145)
[2020-01-04 09:53] VITALS: BMI 27.3
[2020-01-06 08:06] LABS: Prothrombin Time Fingerstick 13.4 SEC (11.9-14.4)
--- NOTE | 2020-01-06 09:21 | HP.PCM_ITS ---
Problem List (1) CVA (cerebral vascular accident) Status: Acute Qualifiers: (2) LV dysfunction Status: Acute (3) Pleural effusion, bilateral Status: Acute (4) Nonischemic cardiomyopathy Status: Chronic Comment: EF 10-15% per echo 10/25/2019 (5) Secondary pulmonary hypertension Status: Chronic Comment: RVSP 47mmhg per echo 10/25/2019 History and Physical Date of Admission: 01/06/20 [facility] [facility] [place] [address] OFFICE VISIT Date of Service: 01/02/20 MR#: [id number] Acct: [id number] Name: CECILE YOUNG Rep #: [id number] : [id number] Provider: Dr. Gold Rogers MD Age/Sex: 59/F Location[place] [facility] [place] Status: Signed HPI HPI History of Present Illness Details: Details: The patient is a 59 year old F with diabetes, hypertension, previous breast cancer in 2012, who I originally saw in consultation at [facility] on 10/26/2019, who at that time had limited ability to give a history as she has had a recent CVA requiring TPA on that admission. She had no previous known cardiac history but does have a history of diabetes, hypertension, lifelong non-smoker, no previous echocardiogram, stress test or catheterization. Patient was recently admitted with new onset aphasia, and found to have an acute embolic stroke. She received TPA and her aphasia has gradually improved to slow dysarthria. She underwent an acute brain CT which showed no acute abnormality, and she received TPA. As part of her work-up she underwent a CT of her chest which demonstrated a 1.3X 1.3 cm nodule density in the peripheral lateral aspect of the right upper lobe as well as bilateral small pleural effusions, with work-up ongoing. In addition as part of her work-up she underwent a echocardiogram on 10/25/2019 which demonstrated severe LV dilatation, severe LV dysfunction with an EF around 10 to 15%, and an estimated RVSP of 47 mmHg. No previous echocardiograms were available for comparison. On further history the patient states that she was in normal health up until around late June early July 2019 where she contracted an upper respiratory tract infection with significant cough with productive sputum. Ever since then she has had shortness of breath, and apparently had ectopic heartbeats identified in her PCPs office Dr. Funk's office. She denied ever being in atrial fibrillation and was not placed on anticoagulation therapy. No additional work-up occurred. Patient was initially started on Coreg, and Eliquis, but then subsequently switched to Xarelto for insurance reasons. She is currently in speech therapy and gradually improving with her speech. She reports that her shortness of breath is markedly improved with Lasix therapy. Apparently she was tested for COVID virus but it was canceled, I am unsure whether she was tested for the antibody subsequently. Patient was fitted with a LifeVest prior to her departure, and has had no shocks. She underwent a repeat echocardiogram to track the progress of her LV dysfunction on 12/12/2019 with the following results: Severely dilated left ventricle. The estimated ejection fraction is 10-15 %. Stage 1 diastolic dysfunction. There is severe global hypokinesis of the left ventricle. Trivial mitral valve insufficiency. Mild (1+) tricuspid valve insufficiency. Right ventricular systolic pressure estimated to be 28 mmHg. Trivial aortic valve insufficiency. Compared to echo report dated 10/26/2019 LV function has remained the same, RVSP has improved from 47 to 28 mm Hg. She now returns today for follow-up of her initial events. Her speech therapy is going quite well, and her speech is much better than her last visit. In fact, it is almost normalized except for in the evening when her speech slows. She has no other residual deficits. She denies any presyncope or syncope. She denies any palpitations, defibrillator discharges, chest pain, angina, presyncope or syncope. Recently her lisinopril was increased to [address] Kate. In our office today her blood pressure is 160/80, pulse is 68 and regular. Physical exam demonstrates clear lungs bilaterally with decreased breath sounds at the bases, regular rate and rhythm, normal S1/S2, no S3 or S4. She has a 2/6 holosystolic murmur best heard at the lower left sternal border. EKG dated 10/25/2019 showed sinus tachycardia with PAC, interventricular conduction delay, poor R wave progression across the precordium, no acute changes. Her lipids dated 10/26/2019 showed an LDL of 58 and HDL of 36. EKG is pending. 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) Nonischemic cardiomyopathy (Chronic) CVA (cerebral vascular accident) (Acute) Secondary pulmonary hypertension (Chronic) Nonrheumatic tricuspid (valve) insufficiency (Chronic) Nonrheumatic mitral (valve) insufficiency (Chronic) Hypertension (Chronic) Breast CA (Chronic) DM (diabetes mellitus) (Chronic) LV dysfunction (Acute) Arthritis (Acute) Breast cancer (Acute) Diabetes (Acute) History of migraine headaches (Acute) Hypertension (Chronic) Surgical History H/O lumpectomy (Acute) History of appendectomy (Acute) History of delivery (Acute) Family History Mother Hypertension Myocardial infarction Migraines Father Diabetes Cancer prostate Hypertension Grandmother Hypertension CVA (cerebral vascular accident) Heart disease Cancer (paternal- cervical cancer; maternal- uterine cancer) Grandfather Hypertension Colon cancer Cancer lung Aunt Breast cancer Brother Hypertension Social History (Updated 01/02/20 @ 13:[address] Uriel Rogers MD) Smoking Status: Never smoker alcohol intake: never substance use type: does not use caffeine: Yes frequency: 3-4 times per week do you feel safe at home: Yes additional social history: [employer] Const: Positive for other (Here to discuss ICD for low ef 10-15%: still wearing lifevest.); negative for fatigue, weakness, body ache, fever(s), headache(s), chills, frequent falls, night sweats, daytime sleepiness, difficulty sleeping, excessive sweating, weight gain, weight loss, increased appetite, poor appetite or anorexia Eyes Eyes: Negative for blind spots, loss of peripheral vision, transient loss of vision, blurry vision, change in vision, double vision, floaters, tunnel vision or other ENT ENT: Negative for headache(s), dizziness, hearing loss, tinnitus, Nosebleed/epi staxis, balance problems, post nasal drip, lip swelling, tongue swelling, bleeding gums, hoarseness, neck pain, dry mouth or other Cardio Chest Pain: No Resp Respiratory: Negative for SOB with activity, SOB at rest, SOB orthopnea\SOB lying down, Coughing up blood/hemoptysis, chest congestion, pain on inspiration, snoring, stridor, wheezing, crackles, paroxysmal nocturnal dyspnea or other GI GI: Negative nausea, vomiting, heartburn, constipation, belching, bloating, cramping, vomiting blood/hematemesis, bright, red blood in stools, black,tarry stools, loose stools, Difficulty Swallowing or other : Negative for hematuria, frequent nighttime urination/ nocturia, erectile dysfunction or abnormal vaginal bleeding Musc Musc: Negative for muscle aches/ myalgia, muscle weakness, joint pain or balance problems Skin Skin: Negative redness, non-healing lesions, rash, unusual bruising, skin ulcer, wounds, jaundice or other Neuro Neuro: Negative for dizziness, lightheadedness, near syncope, syncope, orthostatic symptoms, frequent falls, headache(s), weakness, confusion, memory loss, restless legs, blurry vision, double vision, vertigo, seizures, lack of coordination or other Dereck Hematologic/Lymphatic: Negative for easy bleeding, easy bruising, enlarged lymph nodes or other Endo Endo: Negative for fatigue, cold intolerance, heat intolerance, excessive sweating, flushing, increased thirst/drinking, increased hunger, hair loss, hair growth or other Psych Psych: Negative for anxiety, depression, thoughts of harming anyone, thoughts of harming yourself, visual hallucinations, panic attacks or audible hallucinations Allergy Allergy/Immunology: Negative for throat swelling, Negative for tongue swelling, Negative for hives, Negative for rash, Negative for lip swelling Cardiology Exam Const Appearance: cooperative, healthy appearing and no acute distress Nutritional Appearance: well nourished Orientation: alert, oriented x3 and oriented to person Head Head: normal to inspection, normocephalic and atraumatic Nose: external nose normal Face and Sinus: face symmetric Mouth: oral mucosae normal Eyes General: appearance normal, both eyes and all related structures Eyelids: eyelids normal Conjunctivae: conjunctivae normal Pupils: PERRL and normal by confrontation EOM: EOM intact bilaterally Neck Neck: normal visual inspection and full ROM Carotids: normal carotid upstroke Chest Chest inspection: normal inspection of the chest Auscultation: Bilateral: Clear to Auscultation Cardio Palpation: normal PMI Rate: regular rate Rhythm: regular rhythm Heart sounds: S1 normal and S2 normal GI GI: normal to inspection, no hepatosplenomegaly and bowel sounds present Neuro General: alert, awake, oriented x3, CN's II-XI intact bilaterally and moves all extremities Skin Skin: no rashes or lesions noted Extremities Pulses: Normal: Right Femoral Pulse, Left Femoral Pulse, Right Dorsalis Pedis Pulse, Left Dorsalis Pedis Pulse, Right Posterior Tibial Pulse, Left Posterior Tibial Pulse, Right Radial Pulse, Left Radial Pulse Lower Extremity Edema: None: Bilateral Psych Psychological: normal affect Assessment & Plan 1. Nonischemic cardiomyopathy I42.8 EF 10-15% per echo 10/25/2019 Plan 1. Cardiomyopathy: The patient has a cardiomyopathy that is out of proportion to her age group, and now that her speech has almost completely normalized, I recommended that she undergo a left heart catheterization to evaluate for concomitant coronary occlusive disease to explain her LV dysfunction. Her LV dysfunction did not appreciably improve over a months worth of therapy however it may still have some time. I thoroughly explained the risk/benefits of the procedure to the patient and her significant other, including specific attention to lack of onsite surgical backup, the patient has agreed to proceed. In the meantime she will continue her Coreg, Lasix, and lisinopril. We will increase her lisinopril to 20 mg p.o. daily and return in 2 weeks time for a blood pressure check. We will continue the patient on her LifeVest defibrillator until such time as she receives her implanted AICD. The patient will also need to hold her Xarelto 3 days prior to her catheterization. She will also be bridged with subcu Lovenox given her probable LV thrombotic source of her CVA. Orders Orders: 12 Lead EKG performed by BMS Today Basic Metabolic Profile (BMP) Today Partial Thromboplast Time Today Prothrombin Time w/INR Today CBC-Complete Blood Cnt No Diff Today Left Heart Cath 01/06/20 2. Essential hypertension I10 Plan 2. Hypertension: The patient's blood pressure is increasing, which may be a good sign that her LV function is improving. Unfortunately her most recent echocardiogram 1 month after her initial diagnosis showed no significant improvement. Would recommend aggressive blood pressure control by maximizing her lisinopril and Coreg therapy. We will increase her lisinopril to 20 mg p.o. daily, and return in 2 weeks time for a blood pressure check. We can go up to a maximal 40 mg a day. Orders Orders: Partial Thromboplast Time Today Prothrombin Time w/INR Today CBC-Complete Blood Cnt No Diff Today Left Heart Cath 01/06/20 3. Pericardial effusion I31.3 Plan 3. Pericardial effusion: Patient had no significant residual pericardial effusion on her most recent echocardiogram. She has no signs or symptoms of pericarditis or pericardial effusion. 4. Return office in 6 months. This note was generated using a voice recognition system and there may be incorrect words, spelling or punctuation that were not noted when reviewing the office note prior to saving. A SDM interaction occurred at this visit using an SDM tool prior to initial implant of ICD. Orders Orders: 12 Lead EKG performed by BMS Today Basic Metabolic Profile (BMP) Today Partial Thromboplast Time Today Prothrombin Time w/INR Today CBC-Complete Blood Cnt No Diff Today Left Heart Cath 01/06/20 Plan Detail Other Orders Orders: 12 Lead EKG performed by BMS Today I63.9 Partial Thromboplast Time Today Z79.01 Prothrombin Time w/INR Today Z79.01 Follow Up +6M (Rogers) Coding Level of Care Code Off vis,est,level 3 Diagnoses Nonischemic cardiomyopathy I42.8 Essential hypertension I10 ??Hypertension type: essential hypertension Pericardial effusion I31.3 Coding Level of Care Code Off vis,est,level 3 Diagnoses Nonischemic cardiomyopathy I42.8 Essential hypertension I10 ??Hypertension type: essential hypertension Pericardial effusion I31.3 Supplemental Info Supplemental Information Labs LDL Cholesterol 58 mg/dL (0-130) 10/26/19 HDL Cholesterol 36 mg/dL (40-) L 10/26/19 Triglycerides 84 mg/dL (-199) 10/26/19 VLDL Cholesterol 17 mg/dL (5-40) 10/26/19 Diagnostics Electrocardiogram 10/25/19 Echocardiogram 12/12/19 Chest X-Ray 10/25/19 01/02/20 [id number] <Electronically signed by Uriel Rogers MD> Date _ Ureil Rogers MD Cosigner Signature: Date security police officer attending addendum: The patient was seen and examined on day of procedure, there is/benefits of the procedure were again thoroughly explained to the patient with specific attention to lack of onsite surgical backup. Unfortunately due to poor IV access, and her history of breast cancer, we were unable to gain IV access peripherally. The patient is agreed to right femoral vein IV access during the procedure. Left her catheterization to follow.
--- NOTE | 2020-01-06 10:07 | CL.D_ITS ---
Patient Name: CECILE YOUNG Study Date: 01/06/2020 Performing: Uriel Rogers MD Ht: 61.02 inches 155 cm : 1960 Wt: 145.51 lbs 66 kg Age: 59 Gender: female BSA: 1.65 PROCEDURE(S) PERFORMED [id number]/COR/LV CLINICAL PROFILE AND INDICATIONS Indications: Suspected CAD, Cardiac Arrythmia, Cardiomyopathy, LV Dysfunction Heart Failure: NYHA Class: 1, Newly Diagnosed: Yes, Heart Failure Type: Systolic Stress/Imaging Stress/Image Study Performed: No Angina Classification Anginal Classification w/in 2 Weeks: No symptoms CAD Presentations: No Sxs, no angina. 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 Resume Lifevest and refer to Dr Kay for AICD. Manual sheath removal. RFV sheath placed as we were unable to achieve peripheral IV access. Increase Coreg to 12.5 mg po BID with BP CHECK in 2 weeks. DESCRIPTION OF PROCEDURE The patient arrived to the procedure lab. The risks and benefits of the procedure as well as a full d escription of our services here and current unavailability of surgical backup were fully explained to the patient and/or their significant other prior to the catheterization. The Timeout was completed, verifying the correct patient and procedure. The patient's procedural site was prepped and draped in the usual fashion. Local anesthetic was given subcutaneously to right groin region with Lidocaine 2%. Using a modified Seldinger technique, arterial access was obtained via the right femoral artery, a 4 Fr sheath was inserted Venous access was obtained via the right femoral vein, a 4Fr sheath was insert ed and connect to IVF Left Coronary Artery selective angiography was performed in multiple views usin g a 4 Fr. JL5 catheter. Right Coronary Artery selective angiography was then performed in multiple vi ews using a 4 Fr. 3DRC catheter. Left Ventriculography was performed in PASTRANA projection using a 4 Fr. Pigtail catheter. LV to AO pullback pressures were then recorded.The arterial sheath wa s pulled and manual compression applied until hemostasis is achieved. CORONARY ANGIOGRAPHY DOMINANCE: Left Dominant LEFT HEART ASSESSMENT Left Ventricular Ejection Fraction: by LV Gram 10-15 % Global Hypokinesis - Severe Depressed Left Ventricular systolic function LVEDP: 22 mmHg Elevated Left Ventricular End Diastolic Pressure Cardiomyopathy: Dilated Cardiomyopathy: Congestive LEFT MAIN: Angiographically normal LEFT ANTERIOR DESCENDING ARTERY: Angiographically normal CIRCUMFLEX ARTERY: Angiographically normal OM 1: Proximal - Mild luminal irregularities less than 30% RIGHT CORONARY ARTERY: Angiographically normal COMPLICATIONS No Complications PROCEDURE MEDICATIONS Versed 1 mg IV Oxygen: 2 L/min via nasal cannula SUMMARY OF HEMODYNAMIC DATA Time AIR REST ECG 08:29:25 AO 124/72 (91) SA 09:47:08 LV 115/0, 20 09:53:45 LV 118/1, 25 09:53:51 LVp 116/0, 22 09:53:59 AOp 125/63 (86) 09:54:04 Signed By Uriel Rogers MD On 01/06/2020 10:06:42 Uriel Rogers MD
== END 2020-01-06 14:30 | disposition home or self-care (01) ==
LOC: CLSP 07:55
PROVIDERS: PCP Family Medicine; Referring Provider Internal Medicine Cardiovascular Disease; Visit Provider Internal Medicine Cardiovascular Disease
DX: I42.8 Other cardiomyopathies (principal); E78.5 Hyperlipidemia, unspecified; I11.0 Hypertensive heart disease with heart failure; I50.20 Unspecified systolic (congestive) heart failure; I27.29 Other secondary pulmonary hypertension; J90 Pleural effusion, not elsewhere classified; E11.9 Type 2 diabetes mellitus without complications; R91.1 Solitary pulmonary nodule; M19.90 Unspecified osteoarthritis, unspecified site; I31.3 Pericardial effusion (noninflammatory); Z79.01 Long term (current) use of anticoagulants; Z79.82 Long term (current) use of aspirin; Z79.02 Long term (current) use of antithrombotics/antiplatelets; Z79.899 Other long term (current) drug therapy; Z79.84 Long term (current) use of oral hypoglycemic drugs; Z86.73 Personal history of transient ischemic attack (TIA), and cerebral infarction without residual deficits
CPT/HCPCS: 36415; 36416; 80048; 85027; 85610; 85730; 93458; 99152; J7040; Q9967; C1769; C1894

== ENCOUNTER 2020-02-10 09:00 | Outpatient (RCR) | payer OTHER, SELFPAY ==
[2019-10-27 17:00] VITALS: BMI 27.9
--- NOTE | 2019-11-04 08:30 | SOAP_ITS ---
REASON FOR REFERRAL: The Patient is a 59 year old female referred for a clinical assessment of the Patients communication abilities at [facility] / [facility] on 11/04/2019 status post 10/25/2019 cerebrovascular accident involving the left frontal lobe with persisting post stroke expressive language deficits. the Patient reports initial onset of communication difficulties during the dietitian assistant of 10/25/2019, stating she was having difficulties with expression when conversing with her young grandchild, which gradually worsened to a rather marked expressive nonfluent aphasia (described by the physician as ?total aphasia?) by the time she arrived at the emergency room, where she received TPA with a decrease in her NIHSS from 7 to 3. Following discharge, she reports her symptoms have improved, though she continues to have difficulties with anomia, stating she ?can think of words? though ?can?t get them out at times?, with her anomic blocks leading to breakdowns in communication, as she would forget what she was attempting to convey, with accompanying frustrations. She states that she notices difficulties with expressive clarity, and her messages are not always clear or contain enough information, which she says is most apparent when she reads a text message or written letter she produced. She reports that she experiences a fatigue effect with communication, and that her symptoms become more pronounced towards the mid to latter portions of the day, and has a very difficult time communicating to most communication partners aside from her daughter via phone. She denies issues with distractibility / concentration / attention, denies issues with information encoding / retrieval, denies issues with visuospatial functioning, denies issues with visual processing, denies issues with processing information presented verbally, denies issues with higher level cognitive functioning, and denies issues with judgment / safety awareness. The Patient is fully ambulatory, and appears overall healthy and adequately nourished despite her recent hospitalization, and appears cognitively intact with an appropriate emotional affect. She lives at home with her and teenage son, with two adult daughters nearby (one home from college, the other lives locally). 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 MEDICAL HISTORY: Recent left frontal cerebrovascular accident with resulting expressive nonfluent aphasia and apraxia, breast cancer, migraine headaches, hypertension, diabetes mellitus, arthritis, PREVIOUS MODIFIED BARIUM SWALLOW STUDY: None ADDITIONAL OBJECTIVE ASSESSMENT RESULTS: 10/26/2019 MRI revealed a small area of restricted diffusion involving the posterior left frontal lobe consistent with acute infarction. RESULTS OF THE EVALUATION: The Patient presents with mild to moderate nonfluent aphasia (Broca?s aphasia vs. transcortical) with apraxia of speech secondary to a recent left frontal cerebrovascular accident FUNCTIONAL STATUS ASSESSMENT RESULTS: POE INDEX OF INDEPENDENCE IN ACTIVITIES OF DAILY LIVIN/6 BATHIN DRESSIN TOILETIN TRANSFERRIN CONTINENCE: 1 FEEDIN JENNIFER-RASHMI INSTRUMENTAL ACTIVITIES OF DAILY LIVING SCALE (IADL): 01/20 ABILITY TO USE THE TELEPHONE: 1 SHOPPIN FOOD PREPARATION: 1 HOUSEKEEPIN LAUNDRY: 1 MODE OF TRANSPORTATION: 1 RESPONSIBILITY FOR OWN MEDICATION: 1 ABILITY TO HANDLE FINANCES: 1 FUNCTIONAL AMBULATION CATEGORY (FAC): FAC SCORE: 5 (ambulator- independent) FAC DESCRIPTION: subject can ambulate independently on nonlevel and level surfaces, stairs, and inclines. ORAL MOTOR / MODIFIED CRANIAL NERVE ASSESSMENT: TRIGEMINAL NERVE (CNV): appears grossly intact FACIAL NERVE (CNVII): impaired; mild right labial asymmetry at rest / upon retraction GLOSSOPHARYNGEAL NERVE (CNIX): appears grossly intact VAGUS NERVE (CNX): appears grossly intact HYPOGLOSSAL NERVE (CNXII): abnormal; very trace right lingual drift DENTITION: natural upper / lower dentition in good repair; normal occlusion SALIVATION: moist appearance to the oral cavity without signs of xerostomia; mild diurnal sialorrhea (drooling during daytime) reported following stroke COUGH SUFFICIENCY: appropriate volitional cough intensity VOCAL QUALITY: abnormal vocal quality; strained-strangled vocal quality that is somewhat 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 SUPPLEMENTARY COMMUNICATION ASSESSMENT RESULTS (SCALES/RISK): HOUSE BRACKMANN SCALE FOR FACIAL PARALYSIS GROSS FUNCTION ? GENERAL: grade I (normal) GROSS FUNCTION ? AT REST: grade II (slight dysfunction) MOTION FUNCTION ? FOREHEAD: grade I (normal) MOTION FUNCTION ? EYES: grade I (normal) MOTION FUNCTION ? MOUTH: grade II (slight dysfunction) ACUTE STROKE REGISTRY AND ANALYSIS OF [facility] (ASTRAL) SCORE: AGE: 59 SEVERITY: 7 TIME DELAY (>3 HOURS): 0 (?3 hours) NEW VISUAL FIELD DEFICIT: 0 (no) GLUCOSE (ADMISSION): 1 (>131 mg/dL) LEVEL OF CONSCIOUSNESS: 0 (normal) ASTRAL SCORE: 19 OUTCOME RISK: 12.2% 90 day risk of poor outcome (mRS between 3-6) TOTALED HEALTH RISKS IN VASCULAR EVENTS (THRIVE): AGE: 0 (? 59) NIHSS (ADMISSION): 0 (? 10) HYPERTENSION: 1 (yes) DIABETES: 1 (yes) ATRIAL FIBRILLATION: 0 (no) THRIVE SCORE: 2 OUTCOME PREDICTION: 76% predicted good outcome (mRS between 0-2) at 90 days CARDIOVASCULAR RISK FACTORS, AGING, AND DEMENTIA (CAIDE) RISK SCORE: AGE: 4 (54+ years) EDUCATION: 0 (10+ years) SEX: 0 (female) SYSTOLIC BLOOD PRESSURE: 0 (140+ mm Hg) BODY MASS INDEX: 0 (< 30 kg/m2) TOTAL CHOLESTEROL: 0 (< 251mg/dL) CAIDE SCORE: 4 CAIDE DEMENTIA RISK: 17% risk of developing dementia within 40 years COMMUNICATION ASSESSMENT RESULTS (QUANTITATIVE): QUICK APHASIA BATTERY (QAB): <FORM 1> WORD COMPREHENSION: 10 /10 SENTENCE COMPREHENSION: 9.58 /10 WORD FINDIN /10 GRAMMATICAL CONSTRUCTION: 5.88 /10 SPEECH MOTOR PROGRAMMIN /10 REPETITION: 9.58 /10 READIN /10 QAB OVERALL: 8.32 /10 (mild) B[place]ON NAMING TEST (BNT): NUMBER OF CORRECT RESPONSES: 54 CORRECT FOLLOWING STIMULUS CUES: 0 CORRECT FOLLOWING PHONEMIC CUES: 1 CORRECT FOLLOWING MULTIPLE CHOICE CUES: 5 TYPES OF PARAPHASIAS: PHONOLOGICAL PARAPHASIAS: 3 VERBAL PARAPHASIAS: 0 NEOLOGISTIC PARAPHASIAS: 0 MULTI-WORD PARAPHASIAS: 0 PERCEPTUAL PARAPHASIAS: 0 BNT TOTAL SCORE: 54 APRAXIA OF SPEECH RATING SCALE (ASRS-V1): PRIMARY DISTINGUISHING FEATURES: 2.3/5 SCORE DESCRIPTION: frequent but not pervasive DISTINGUISHING FEATURES UNLESS DYSARTHRIA IS PRESENT: 2.6/5 SCORE DESCRIPTION: frequent but not pervasive ASRS-V1 SCORE: 2.6/5 ASRS-V1 SCORE DESCRIPTION: frequent but not pervasive APHASIA SEVERITY RATING SCALE (ASRS): ASRS SCORE: 3/5 ASRS SCORE DESCRIPTION: the patient can discuss almost all everyday problems with little or no assistance; reduction of speech however, makes conversation about certain material difficult COGNITIVE COMMUNICATION ASSESSMENT RESULTS (QUALITATIVE): EXECUTIVE FUNCTIONING: no executive functioning based abnormalities appreciated throughout the assessment. MEMORY: no memory based abnormalities appreciated throughout the assessment. ATTENTION: no attention based abnormalities appreciated throughout the assessment. VISUOSPATIAL ABILITIES: no visuospatial based abnormalities appreciated throughout the assessment. LANGUAGE FUNCTIONING: language profile similar in nature to non-fluent aphasia (transcortical aphasia vs. Broca?s aphasia) with apraxia, with intermittent anomia, with speech rate is interrupted by occasional pauses for apparent word finding problems, noted independent circumlocution with sporadic success; noticeable groping for placement during articulation with inconsistent / sporadic production errors signaling apraxia of speech, with purposeful reductions in production at times to allow for more competent articulatory precision; noticeable expressive aprosodia (milder) without apparent receptive aprosodia; intact receptive language functioning; no clinically significant dysarthria appreciated; no alexia appreciated; no orthographic production issues noted, though her written output does mirror her expressive language production errors (sans apraxia)/ VOCAL FUNCTIONING: vocal functioning appears grossly similar to her baseline abilities per her report, though she appears to demonstrate somewhat strained strangled production with variations in pitch that would be 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 COMPLICATING FACTORS AND NOTABLE FINDINGS: complicating factors include fatigue effect (she states that she is communicating ?way better? in the morning and in particular this morning, and deteriorates throughout the day). COMMUNICATION ASSESSMENT RESULTS (SEVERITY GRADING): FUNCTIONAL COMMUNICATION MEASURE (FCM) ?LANGUAGE COMPREHENSION FCM ? LANGUAGE COMPREHENSION LEVEL: 0 (of 6) SEVERITY: independent LEVEL DESCRIPTION: comprehension of language is appropriate for chronological age in all contexts. FUNCTIONAL COMMUNICATION MEASURE (FCM) ?LANGUAGE PRODUCTION FCM ? LANGUAGE PRODUCTION LEVEL: 2 (of 6) SEVERITY: mild-moderate LEVEL DESCRIPTION: produces sentences and conversation to communicate needs and make comments in familiar and novel contexts; complexity of language structures is reduced; communication in conversation may require increased time, repetitions, and cueing, which restricts participation; self-monitoring is evident approximately 75% of the time FUNCTIONAL COMMUNICATION MEASURE (FCM) ? ARTICULATION FCM ? ARTICULATION LEVEL: 2 (of 6) SEVERITY: mild-moderate LEVEL DESCRIPTION: speech is intelligible approximately 75% of the time; sound productions are noticeable in error; imprecise sequencing or coordination of speech sounds may be evident; ability to self-correct is inconsistent FUNCTIONAL COMMUNICATION MEASURE (FCM) ?VOICE PRODUCTION FCM ? VOICE PRODUCTION LEVEL: 1 (of 6) SEVERITY: mild LEVEL DESCRIPTION: individual?s communication interactions are only mildly affected. INTERVENTION CONSIDERATIONS AND RECOMMENDATIONS: I would consider the Patient to be at a higher risk of persistent post stroke language difficulties and slower recovery rate secondary to the location of the Patients lesion (dominant hemisphere) and type of presentation (non- fluent vs. fluent; apraxia of speech). RECOMMENDATIONS FOR INTERVENTION: The Patient requires continued skilled speech-language intervention 1-2x per week targeting non-fluent expressive language deficits (nonfluent aphasia) with considerations for implementation of the Verb Network Strengthening Treatment (VNeST) approach; training and implementation of word finding treatments, with considerations for implementation of a Semantic Feature Analysis Treatment (SFAT) and the Verb Network Strengthening Treatment (VNeST) approaches; and training and implementation of apraxia based treatments with consideration for a Articulatory?Kinematic Approach; with goal adjustment as clinically appropriate. We will additionally continue to monitor and adjust our intervention approach and recommendations if further investigation and intervention would be appropriate in regards to vocal functioning, though this would require further workup via mallet and die cutter prior to interventions if the need arises. POST ASSESSMENT EDUCATION: The results and recommendations were discussed with the Patient immediately following completion of the assessment, with the Patient verbalizing understanding and agreement with all recommendations and education provided. FUNCTIONAL OUTCOMES: OUTCOME 1: the Patient will independently utilize internal word finding strategies (considerations for SFAT, VNeST approaches) to reduce the presence of anomia and facilitate improved communication effectiveness during both structured therapeutic tasks and unstructured / conversational speech tasks, with minimal verbal and visual cueing provided in 2 out of 3 sessions. OUTCOME 2: the Patient will demonstrate improved expressive language clarity through structured intervention tasks targeting non-fluent aphasia patterns (considerations for implementation of the VNeST approach) during both structured and unstructured therapeutic tasks, in 2 out of 3 sessions. OUTCOME 3: the Patient will demonstrate improved expressive language clarity through structured intervention tasks targeting post stroke apraxia of speech production patterns / errors (considerations for implementation of an articulatory ? kinematic approach) during both structured and unstructured therapeutic tasks, in 2 out of 3 sessions. OUTCOME 4: goal adjustment as needed. Saeed Gandhi M.A., CCC-CLOTH REELER, CBIS MBSImP Certified, LSVT Certified [facility] Speech-Language Pathology Department Email: [email or web address]
--- NOTE | 2020-02-10 16:28 | HP.SP.DC_ITS ---
ST Discharge Summary - Discharged: Discharge: The Patient is an 59 year old female who attended 9 skilled speech-language intervention sessions spanning from 11/04/2019 to 02/10/2020 targeting cognitive communication abilities secondary to a 10/25/2019 cerebrovascular accident involving the left frontal lobe with persisting post stroke expressive language deficits. The Patient participated in intervention sessions targeting non-fluent expressive language deficits (non-fluent aphasia) with considerations for implementation of the Verb Network Strengthening Treatment (VNeST) approach; training and implementation of word finding treatments, with considerations for implementation of a Semantic Feature Analysis Treatment (SFAT) and the Verb Network Strengthening Treatment (VNeST) approaches; and training and implementation of apraxia based treatments with consideration for a Articulatory?Kinematic Approach; with goal adjustment as clinically appropriate. At this time, her non-fluent aphasia and apraxia has nearly resolved, with the Patient reporting that her current level of functioning is at the previously determined therapeutic goal level, and inquired about discharge. I do think that discharge at this point is appropriate, as she has met all intervention goals. We will discharge from the skilled speech- language pathology caseload at this time as all intervention goals have been achieved, though would gladly re-initiate intervention as needed moving forward.
== END 2020-02-10 19:00 | disposition home or self-care (01) ==
LOC: SP 09:00
PROVIDERS: PCP Family Medicine; Referring Provider Family Medicine; Visit Provider Family Medicine
DX: Z86.73 Personal history of transient ischemic attack (TIA), and cerebral infarction without residual deficits (principal)
CPT/HCPCS: 92507; 92523

== ENCOUNTER → 2020-02-22 10:32 | Outpatient (CLI) | payer OTHER, SELFPAY ==
[2020-02-16 16:55] VITALS: BMI 27.3
== END ==
PROVIDERS: PCP Family Medicine; Referring Provider Internal Medicine Cardiovascular Disease; Visit Provider Internal Medicine Cardiovascular Disease
DX: Z11.59 Encounter for screening for other viral diseases (principal)
CPT/HCPCS: 87635; C9803; U0003

== ENCOUNTER → 2020-02-23 12:47 | Outpatient (CLI) | payer OTHER, SELFPAY ==
[2020-02-08 08:29] VITALS: BMI 27.3
[2020-02-16 16:55] VITALS: BMI 27.3
--- NOTE | 2020-02-24 07:57 | PFT ---
INTRODUCTION: The patient is a 59-year-old female that presents for pulmonary function studies secondary to a diagnosis of dyspnea. Respiratory therapy reports good patient effort. Bronchodilators were used during testing. INTERPRETATION: Forced expiration spirometry demonstrates no evidence of a large airways obstructive ventilatory defect. There was no significant response to aerosolized bronchodilators. Spirograms are of good quality and plateau normally. Body plethysmography was performed and reveals a decreased TLC to 3.15 L, 73% of predicted, indicative of a mild restrictive ventilatory impairment. The remainder of the lung volumes are symmetrically reduced. Diffusing capacity by single breath CO is mildly reduced at 74% of predicted. IMPRESSION: Mild restrictive ventilatory impairment with symmetric reduction in diffusing capacity.
== END ==
PROVIDERS: PCP Family Medicine; Referring Provider Internal Medicine Critical Care Medicine; Visit Provider Internal Medicine Critical Care Medicine
DX: R06.00 Dyspnea, unspecified (principal); R91.1 Solitary pulmonary nodule
CPT/HCPCS: 94060; 94726; 94729

== ENCOUNTER 2020-03-01 08:58 | Day surgery (SDC) | payer OTHER, SELFPAY ==
[2020-01-04 09:53] VITALS: BMI 27.3
[2020-02-16 16:55] VITALS: BMI 27.3
[2020-02-22 08:59] LABS: Bacteria 0 SEEN /hpf (None Seen); Mucous, Urine 0 SEEN /hpf (<or=2+); White Blood Cells 0 SEEN /hpf (0-5)
[2020-02-22 09:28] LABS: Hematocrit 39.7 % (37-47); Hemoglobin 12.6 g/dL (12.0-15.0); Mean Corp Hgb Conc 31.7 g/dL (32-36); Mean Corpuscular Hgb 28.1 pg (27.0-32.0); Mean Corpuscular Volume 88.4 fL (81-99); Mean Platelet Vol. 9.4 fl (6.2-12.0); Platelet Count 212 K/mm3 (150-450); RBC Distribution Width CV 14.9 % (11.6-14.6); RBC Distribution Width SD 48.2 fl (35.1-43.9); Red Blood Count 4.49 M/mm3 (4.2-5.4); White Blood Count 5.9 K/mm3 (4.4-11.0)
[2020-02-22 09:36] LABS: Color, Urine Yellow (Yellow); Glucose, Dipstick Normal (Normal); Ketone-Dipstick Negative (Negative); Leukocyte Esterase-Dipstick Negative /ul (Negative); Nitrite-Dipstick Negative (Negative); Occult Blood-Urine 50 /ul (Negative); Protein-Dipstick 15 mg/dl (Negative); Urine Bilirubin Dipstick Negative (Negative); Urine Clarity Sl. Cloudy (Clear); Urine Urobilinogen Normal (Normal)
[2020-02-22 09:38] LABS: International Normalized Ratio 3.4; Prothrombin Time (Protime)PT. 34.2 SECONDS (11.7-14.9)
[2020-02-22 09:45] LABS: Red Blood Cells-Urine 0-5 SEEN /hpf (0-5); Squamous Epithelial Cells - UA 0-5 SEEN /hpf (5-10)
[2020-02-22 09:58] LABS: BUN 9 mg/dL (7-18); Creatinine, Serum 0.76 mg/dL (0.55-1.02); EST Glomerular Filtration Rate 83 mL/min (>60); Glucose 117 mg/dL (74-106)
[2020-02-22 09:59] LABS: Anion Gap 3 (5-15); BUN/Creat Ratio 11.9 RATIO (10-20); Calcium,Total 8.8 mg/dL (8.5-10.1); Chloride 108 mmol/L (98-107); Est Glom Filt Rate - Afr Amer 101 mL/min (>60); Potassium 3.7 mmol/L (3.5-5.1); Sodium Level 142 mmol/L (136-145)
--- NOTE | 2020-02-28 08:39 | HP.PCM_ITS ---
History and Physical Date of Admission: 03/01/20 Details: This is a 59-year-old female who presents the [employer] today for an ICD placement. She has a history of hypertension, previous breast cancer in 2012, CVA requiring TPA in October 2019, nonischemic cardiomyopathy, hypertension, and diabetes mellitus. Patient underwent heart catheterization on 01/06/2020 that showed nonobstructive coronary arteries with proximal OM1 showing mild luminal irregularities less than 30% and an ejection fraction of 10-15%. She was placed on a LifeVest awaiting ICD placement. Pt denies chest, arm, jaw, or neck discomfort. Her exercise tolerance is stable. Pt denies symptoms of palpitations, lightheadedness, dizziness, near syncopal or syncopal episodes. Pt denies edema or claudication issues. Pt. denies orthopnea, PND, fever, chills, chronic cough, blood in urine, blood in stool, myalgia, or unexplainable fatigue. She states SOB with activity such as coming up steps. This improves with rest. She will proceed with preventative ICD placement. Intake Vital Signs: See EMR Intake Visit Reasons: ICD placement Allergies No Known Allergies Allergy (Verified 02/08/20 08:28) Medications See EMR [facility] Social History (Updated 02/17/20 @ 07:58 by Clifford Garnett ASSISTANT EXECUTIVE HOUSEKEEPER, ASSISTANT EXECUTIVE HOUSEKEEPER-C) Smoking Status: Never smoker alcohol intake: never substance use type: does not use caffeine: Yes frequency: 3-4 times per week do you feel safe at home: Yes additional social history: Colton MONTESINOS Const Const: Negative for fatigue, weakness, body ache, fever(s) or chills ENT ENT: Negative for dizziness Cardio Chest Pain: No Palpitations: No Edema: None Muscle aches with walking: None Resp Respiratory: Positive for SOB with activity; negative for SOB at rest, SOB orthopnea\SOB lying down, Cough or paroxysmal nocturnal dyspnea GI GI: Negative nausea, vomiting blood/hematemesis, bright, red blood in stools or black,tarry stools : Negative for hematuria or frequent nighttime urination/ nocturia Musc Musc: Negative for muscle aches/ myalgia Skin Skin: Negative non-healing lesions or rash Neuro Neuro: Negative for dizziness, lightheadedness, near syncope, syncope, orthostatic symptoms or weakness Endo Endo: Negative for fatigue Allergy Allergy/Immunology: Negative for rash Cardiology Exam Const Appearance: cooperative, healthy appearing, comfortable and no acute distress Nutritional Appearance: well nourished and overweight Orientation: alert, awake and oriented x3 Head Head: normal to inspection Ears: hearing grossly normal bilaterally Nose: external nose normal Face and Sinus: face symmetric Mouth: oral mucosae normal Eyes General: appearance normal, both eyes and all related structures Eyelids: eyelids normal EOM: EOM intact bilaterally Neck Neck: normal visual inspection and no JVD Carotids: normal carotid upstroke Chest Chest inspection: normal inspection of the chest, symmetric chest movement and normal respiratory effort; negative cough Auscultation: Bilateral: Clear to Auscultation Cardio Rate: regular rate Rhythm: regular rhythm Heart sounds: S1 normal and S2 normal; negative rub, gallop or murmur GI GI: normal to inspection Neuro General: alert, awake, oriented x3 and CN's II-XI intact bilaterally Skin Skin: no rashes or lesions noted Extremities Pulses: Normal: Right Posterior Tibial Pulse, Left Posterior Tibial Pulse, Right Radial Pulse, Left Radial Pulse Lower Extremity Edema: None: Bilateral Psych Psychological: normal affect Assessment & Plan 1. Nonischemic cardiomyopathy I42.8 EF 10-15% per echo 10/25/2019 Plan Patient's echocardiogram on 10/26/2019 showed an ejection of 10-15%. Her repeat echocardiogram on 12/12/2019 continued to show a reduced ejection fraction 10- 15%. Her heart catheterization on 01/06/2020 showed nonobstructive coronary artery disease. Overall, patient appears to be in [place] [employer] functional class II with shortness of breath most noted when going up steps. She appears to be in a euvolemic state. It initially was recommended that we increase for Coreg. However, due to bradycardia, it was decided to increase her lisinopril to maximum 20 mg p.o. twice daily. We can consider adjusting Coreg over time or adjusting to Entresto based on long-term response. Given her history of CVA and reduced ejection fraction she will continue with Xarelto therapy. Her EKG on 01/02/2020 showed sinus rhythm with PVCs at a rate of 70 bpm, QTC of 439 and a QRS of 108. She will proceed with ICD placement with Dr. Kay. A SDM interaction occurred at this visit using an SDM tool prior to initial implant of ICD. 2. Essential hypertension I10 Plan Her blood pressure is elevated in office on 02/16/2020 She was asked to increase her lisinopril to 20 mg p.o. twice daily. She was asked to continue to monitor her blood pressure. Her medications will be adjusted over time accordingly. Additional Comments Thank you for allowing us to participate in the patients plan of care, if you have any questions please do not hesitate to call. This note was generated using a voice recognition system and there may be incorrect words, spelling or punctuation that were not noted when reviewing the office note prior to saving. Heart catheterization from 01/06/2020: CONCLUSIONS Global LV systolic dysfunction- Severe LVEF: by LV gram 10-15 % Depressed Left Ventricular systolic function - Severe Elevated Left Ventricular End Diastolic Pressure Non obstructive coronary arteries Normal coronary arteries RECOMMENDATIONS Management as per referring Education Teacher d/c plavix, cont baby asa given h/o CVA and non obstructive CAD, resume Xeralto on 01/08/2020. Resume Lifevest and refer to Dr Kay for AICD. Manual sheath removal. RFV sheath placed as we were unable to achieve peripheral IV access. Increase Coreg to 12.5 mg po BID with BP CHECK in 2 weeks. CORONARY ANGIOGRAPHY DOMINANCE: Left Dominant LEFT HEART ASSESSMENT Left Ventricular Ejection Fraction: by LV Gram 10-15 % Global Hypokinesis - Severe Depressed Left Ventricular systolic function LVEDP: 22 mmHg Elevated Left Ventricular End Diastolic Pressure Cardiomyopathy: Dilated Cardiomyopathy: Congestive LEFT MAIN: Angiographically normal LEFT ANTERIOR DESCENDING ARTERY: Angiographically normal CIRCUMFLEX ARTERY: Angiographically normal OM 1: Proximal - Mild luminal irregularities less than 30% RIGHT CORONARY ARTERY: Angiographically normal Transthoracic echocardiogram from 12/12/2019: Interpretation Summary Severely dilated left ventricle. The estimated ejection fraction is 10-15 %. Stage 1 diastolic dysfunction. There is severe global hypokinesis of the left ventricle. Trivial mitral valve insufficiency. Mild (1+) tricuspid valve insufficiency. Right ventricular systolic pressure estimated to be 28 mmHg. Trivial aortic valve insufficiency. Compared to echo report dated 10/26/2019 LV function has remained the same, RVSP has improved from 47 to 28 mm Hg. Diagnostics Electrocardiogram 01/02/20 Echocardiogram 12/12/19 Pacemaker Check 02/16/20 Cardiac Catheterization 01/06/20 COVID (Procedure Consent) Procedure Criteria Procedure Criteria: Yes Elective The surgeon/proceduralist and patient have discussed in detail the risk of exposure to and/or potential harm posed by the COVID-19 virus with having a surgery/procedure at this time versus the risk of delaying the surgery/procedure. It is not possible to know either the risk of delaying the surgery or procedure or chance of getting an infection with perfect accuracy, but a joint decision was made between the patient and the surgeon/proceduralist to proceed at this time with the scheduled surgery/procedure as indicated on the consent form. Addendum 03/01/2020. Patient was seen prior to procedure. There are no changes in clinical presentation from office visit. She will proceed as planned.
[2020-02-29 10:20] VITALS: BMI 27.3
[2020-03-01] VITALS (13 sets, daily range): BP systolic 125–162; BP diastolic 60–81; PULSE 43–62; RESP 12–16; TEMP 36.4–37.1; O2SAT 93–100
--- NOTE | 2020-03-01 09:23 | EKG12_ITS ---
Test Reason : PRE PROCEDURE Blood Pressure : / mmHG Vent. Rate : 060 BPM Atrial Rate : 060 BPM P-R Int : 156 ms QRS Dur : 092 ms QT Int : 460 ms P-R-T Axes : -04 -43 123 degrees QTc Int : 460 ms Normal sinus rhythm Left axis deviation T wave abnormality, consider lateral ischemia Abnormal ECG When compared with ECG of 25-OCT-2019 09:54, Premature atrial complexes are no longer Present Vent. rate has decreased BY 46 BPM T wave inversion more evident in Lateral leads Confirmed by KAVON SCHULZ, HEBERT ([id number]), editor magazine BEVERLY ZHANG ([id number]) on 03/06/2020 4:17:42 PM Referred By: Vishal Kay Confirmed By:AMOS JACOBSON MD
--- NOTE | 2020-03-01 12:19 | RAD_ITS ---
HISTORY: 2 hours post pacemaker insertion. EXAMINATION/TECHNIQUE: XR Chest 1 View: COMPARISON: October 25, 2019 FINDINGS: LINES/DEVICES: Interval placement of pacemaker with lead in the region of the right ventricle LUNGS: No consolidation, edema or effusion. No pneumothorax. MEDIASTINUM AND CARDIOVASCULAR STRUCTURES: Mild enlargement of cardiac silhouette similar to prior study Central airways and mediastinal contour are unremarkable. BONES AND SOFT TISSUES: Unremarkable. RAD/Chest 1 View (Portable) IMPRESSION: Interval placement of pacemaker Mild enlargement of the cardiac silhouette similar to prior study at 0121 Reported and signed by: Hyacinth Ferrell DO Electronically Signed: Hyacinth Ferrell DO at 1:20 EDT Tel , Service support ,
--- NOTE | 2020-03-01 13:32 | OP.PCM_ITS ---
Report of Operation Date of Procedure: 03/01/20 Description of Surgical Findings:: Diagnosis: nonischemic Cardiomyopathy with NYHA Class iii; Left ventricular ejection fraction 20% despite optimal medical therapy. ICD for primary prevention Preoperative diagnosis implantation of single chamber ICD as primary prevention Postoperative diagnosis same as above After informed consent and IV antibiotics the patient was brought to the [facility] catheterization laboratory. The left side of the chest was prepped and draped in the usual sterile manner. The patient was sedated with intermittent boluses of IV Versed and fentanyl as well as subcutaneous 1% lidocaine. An incision was made inferior to the clavicle to accommodate the size of the hardware device. The pocket was created using blunt and Bovie dissection. Hemostasis was obtained. IV contrast was injected through the left arm IV adn left upperextremity venogram confirmed patency (since pt had a port removed from left subclavian few years ago) Using the Seldinger technique the axillary vein was cannulated once and a guidewire was advanced under fluoroscopic guidance. Over the guidewire a sheath was advanced. Through this sheath, the lead was positioned under fluoroscopic guidance into the right ventricle and was actively fixated. Once actively fixated, the lead was tested to check for proper sensing, capture threshold, impedance and to exclude diaphragmatic stimulation. Once the lead was implanted and all electrical parameters were confirmed to be functioning normally with appropriate values, the leads was then sutured to the pectoralis muscle with 2-0 silk on the Silastic collar ?2. The sponge and needle count were correct. Hemostasis was obtained. Antibiotic solution was used to flush the pocket. The new device was brought to the field. The lead was placed in the appropriate position of the header of the device and were secured by the setscrews and confirmed by the tug test. The device and the leads were then placed in the pocket. Pocket was closed with a deep layer of running 2-0 Vicryl, superficial layer of running 4-0 Vicryl and skin with Steri- Strips that were covered with a rolled 4 x 4's and Tegaderm. The patient left the lab with the device programmed to chronic parameters. There were no complications. Implanted system is a single chamber [employer] ICD Lead and device serial and model numbers are available in the chart documents provided by the device company member services representative procedure summary.
[2020-03-01] MEDS: HYDROcodone Bitartrate/Apap 5/325 Tablet PO (18:27)
[2020-03-01] MEDS: Famotidine 20 MG Tablet PO (21:54)
[2020-03-01] MEDS: Carvedilol 12.5 MG Tablet PO (21:54)
[2020-03-01] MEDS: Lisinopril 20 MG Tablet PO (21:54)
[2020-03-02 03:02] VITALS: PULSE 46
[2020-03-02 03:39] VITALS: BP 138/69; PULSE 47; RESP 11; TEMP 36.6; O2SAT 96
--- NOTE | 2020-03-02 05:20 | RAD_ITS ---
HISTORY: POST PERMANENT ICD/PACEMAKER. INSPIRATION VIEW . ARMS DOWN. WET READ TO DOCTOR (ALSO ORDERED EXPIRATION VIEW) EXAMINATION/TECHNIQUE: XR Chest 2 Views: COMPARISON: March 01, 2020 also prior study October 25, 2019 FINDINGS: LINES/DEVICES: Pacemaker similar to prior study LUNGS: No consolidation, edema or effusion. No pneumothorax. MEDIASTINUM AND CARDIOVASCULAR STRUCTURES: Cardiac silhouette is enlarged similar to prior study Central airways and mediastinal contour are unremarkable. BONES AND SOFT TISSUES: Unremarkable. RAD/Chest PA and Lateral IMPRESSION: Pacemaker similar to prior study at 0639 Reported and signed by: Hyacinth Ferrell DO Electronically Signed: Hyacinth Ferrell DO at 6:38 EDT Tel , Service support ,
--- NOTE | 2020-03-02 05:20 | RAD_ITS ---
HISTORY: POST PERMANENT ICD/PACEMAKER. EXPIRATION VIEW. ARMS DOWN. WET READ TO MD. (ALSO ORDERED INSPIRATION VIEW TO COMPARE) EXAMINATION/TECHNIQUE: XR Chest 1 View: COMPARISON: March 02, 2020 FINDINGS: LINES/DEVICES: Pacemaker similar to prior study LUNGS: Mild vascular prominence. No pleural effusions. No pneumothorax. MEDIASTINUM AND CARDIOVASCULAR STRUCTURES: Cardiac silhouette is enlarged similar to prior study Central airways and mediastinal contour are unremarkable. BONES AND SOFT TISSUES: Unremarkable. RAD/Chest 1 View IMPRESSION: Pacemaker similar Mild vascular prominence Cardiac silhouette enlarged similar to prior study at 0645 Reported and signed by: Hyacinth Ferrell DO Electronically Signed: Hyacinth Ferrell DO at 6:43 EDT Tel , Service support ,
[2020-03-02] MEDS: HYDROcodone Bitartrate/Apap 5/325 Tablet PO (06:17)
[2020-03-02 07:14] LABS: Hematocrit 37.2 % (37-47); Hemoglobin 11.4 g/dL (12.0-15.0)
[2020-03-02 07:18] VITALS: PULSE 57
[2020-03-02 07:33] LABS: Anion Gap 6 (5-15); BUN 15 mg/dL (7-18); BUN/Creat Ratio 22.5 RATIO (10-20); Calcium,Total 8.5 mg/dL (8.5-10.1); Chloride 106 mmol/L (98-107); Creatinine, Serum 0.67 mg/dL (0.55-1.02); EST Glomerular Filtration Rate 96 mL/min (>60); Est Glom Filt Rate - Afr Amer 116 mL/min (>60); Estimated Creatinine Clearance 68.22 ml/min; Glucose 135 mg/dL (74-106); Potassium 4.1 mmol/L (3.5-5.1); Sodium Level 140 mmol/L (136-145)
[2020-03-02 09:19] VITALS: BP 134/60; PULSE 50; RESP 16; TEMP 36.6; O2SAT 93
[2020-03-02] MEDS: Aspirin E.C. 81 MG Tablet PO (09:28)
[2020-03-02] MEDS: Furosemide 20 MG Tablet PO (09:28)
[2020-03-02] MEDS: Famotidine 20 MG Tablet PO (09:28)
[2020-03-02] MEDS: Lisinopril 20 MG Tablet PO (09:28)
[2020-03-02] MEDS: Carvedilol 12.5 MG Tablet PO (09:28)
[2020-03-02] MEDS: Escitalopram Oxalate 10 MG Tablet 5 MG PO (09:29)
--- NOTE | 2020-03-02 09:31 | DCINST_ITS ---
Discharge Diet: No Restrictions Discharge Activity: May Not Drive Call your doctor if your incision/area has: Continuous Slow Oozing, Sudden Increased Bleeding, Increased Pain/ Swelling, Increased Redness, Foul Smelling Discharge, Swelling at the incision site Call your doctor if you observe: Fever of 101 or Higher, Shortness of breath, Dizziness, Fainting spells, Swelling in the ankles, Chest pain, Prolonged hiccoughing, Increased palpitations (irregular heartbeat) Suture Line Care: Avoid Pulling/Pushing, Avoid Pinching/Bending Cleanse incision/area with: Keep Dressing Clean & Dry Additional Dressing/Incision Instructions:: When dressing is removed, wash and dry incision. Keep covered with a light bandage if it is rubbing against your clothing. Do not cover the incision with an airtight bandage. Change the bandage daily. Do not remove steri strips. The strips will fall off on their own. Additional Instructions: Signs and Symptoms to Report to Your Doctor at Once - call your doctor's office or Doctor's Registry ([phone]) Call 911 or go to the nearest Emergency Department if you feel you need urgent care. *Infection (fever, increased redness or swelling at the incision site, drainage from the incision increased pain at the pacemaker site) *Shortness of breath *Dizziness *Fainting spells *Swelling in the ankles *Chest pain *Prolonged hiccoughing *Increased palpitaitons (irregular heartbeat) Medications: Take your pain medication as directed. Refer to your discharge instruction sheet for a list of medications you are to take. Allergies/Adverse Reactions: Allergies No Known Allergies Allergy (Verified 02/08/20 08:28) Medications to take at Discharge metformin 500 mg tablet 500 mg PO BID 06/26/17 Letrozole 2.5 mg PO DAILY 10/25/19 albuterol sulfate 90 mcg/actuation aerosol inhaler 2 puff INHALATION Q6H PRN 11/10/19 blood-glucose meter See Rx Instructions .ROUTE .MEDSUPPLY #1 ea 11/21/19 lancets See Rx Instructions .ROUTE .MEDSUPPLY #50 ea 11/21/19 escitalopram oxalate 5 mg tablet 5 mg PO DAILY 11/24/19 famotidine 20 mg tablet 20 mg PO BID #60 tab 11/24/19 furosemide 20 mg tablet 20 mg PO DAILY tab 11/24/19 aspirin 81 mg tablet,delayed release 81 mg PO DAILY #30 tab 01/02/20 carvedilol 12.5 mg tablet 12.5 mg PO BID #180 tab 01/06/20 lisinopril 10 mg tablet 20 mg PO BID #180 tab 02/16/20 Primary Care Physician: Clifford Kate MD [Primary Care Provider] - Test Results: Test results from this visit will be discussed in further detail at your follow- up appointment, if applicable. When: Pacer clinic 03/09/20 Proposed Discharge Date: 03/02/20
--- NOTE | 2020-03-02 09:53 | PHA.DC.MR ---
Pharmacy Service has performed discharge medication reconciliation for this patient. The patient's discharge medication list was reviewed for discrepancies and discrepancies were resolved. Home Medications metformin 500 mg tablet 500 mg PO BID 06/26/17 Letrozole 2.5 mg PO DAILY 10/25/19 albuterol sulfate 90 mcg/actuation aerosol inhaler 2 puff INHALATION Q6H PRN 11/10/19 blood-glucose meter See Rx Instructions .ROUTE .MEDSUPPLY #1 ea 11/21/19 lancets See Rx Instructions .ROUTE .MEDSUPPLY #50 ea 11/21/19 escitalopram oxalate 5 mg tablet 5 mg PO DAILY 11/24/19 famotidine 20 mg tablet 20 mg PO BID #60 tab 11/24/19 furosemide 20 mg tablet 20 mg PO DAILY tab 11/24/19 aspirin 81 mg tablet,delayed release 81 mg PO DAILY #30 tab 01/02/20 carvedilol 12.5 mg tablet 12.5 mg PO BID #180 tab 01/06/20 lisinopril 10 mg tablet 20 mg PO BID #180 tab 02/16/20
== END 2020-03-02 09:33 | disposition home or self-care (01) ==
LOC: CLSP 09:03 → PCU 14:16
PROVIDERS: Internal Medicine Cardiovascular Disease; PCP Family Medicine; Referring Provider Internal Medicine Cardiovascular Disease; Visit Provider Internal Medicine Cardiovascular Disease
DX: I42.8 Other cardiomyopathies (principal); I10 Essential (primary) hypertension; E11.9 Type 2 diabetes mellitus without complications; Z86.73 Personal history of transient ischemic attack (TIA), and cerebral infarction without residual deficits; I25.10 Atherosclerotic heart disease of native coronary artery without angina pectoris; I49.3 Ventricular premature depolarization; Z79.899 Other long term (current) drug therapy; Z79.82 Long term (current) use of aspirin; Z79.84 Long term (current) use of oral hypoglycemic drugs
CPT/HCPCS: 33249; 36415; 71045; 71046; 80048; 81001; 85014; 85018; 85027; 85610; 93005; 93641; 99152; 99153; J7040; Q9967; A4216; C1894; J2405

== ENCOUNTER → 2020-05-15 13:15 | Outpatient (CLI) | payer OTHER, SELFPAY ==
[2020-05-08 09:36] VITALS: BMI 28.3
--- NOTE | 2020-05-15 13:16 | CT_ITS ---
STUDY: CT CHEST WITHOUT CONTRAST REASON FOR EXAM: Female, 60 years old. Dyspnea, lung nodule. Hx afib, defibrillator, breast cancer with lumpectomy, CVA. RADIATION DOSAGE (If Supplied By Facility): CTDIvol = ( 11.32 ) mGy, DLP = ( 395.85 ) mGycm TECHNIQUE: Transaxial imaging was performed without the administration of intravenous contrast material. Multiplanar coronal and sagittal images were reformatted. Individualized dose optimization techniques were used for this CT. COMPARISON: Comparison is made with prior study dated 10/26/2019. FINDINGS: Surgical clips are seen in the right axillary region. Stable 1.1 BRIDGETTE by 1.2 cm irregular nodular density in the peripheral lateral aspect of the right upper lobe as seen on axial image #20. Cystic spaces are seen within it most likely representing focal bronchiectasis. This may represent an area of scarring. The previously seen pleural effusions have resolved. Normal heart and pericardium. A left-sided pacemaker device is seen. There are multiple small lymph nodes within the mediastinum, which are normal in size and morphology most compatible with reactive lymph hyperplasia. Calcified right hilar lymph node. There is prominence of the pulmonary hilar arteries without peripheral pulmonary vascular congestion, suggesting pulmonary hypertension. Normal aorta arch and descending thoracic aorta. There are multi-level degenerative changes of the thoracic spine. There is no demonstrated abnormality of the visualized upper abdomen. CT/Chest without Contrast IMPRESSION: Stable appearance of the irregular nodular density in the right upper lobe as described. The previously seen bilateral pleural effusions have cleared. Electronically Signed: Ronald Carranza, at 14:16 EST , Service support ,
== END ==
PROVIDERS: PCP Family Medicine; Referring Provider Internal Medicine Critical Care Medicine; Visit Provider Internal Medicine Critical Care Medicine
DX: R91.1 Solitary pulmonary nodule (principal); R06.00 Dyspnea, unspecified
CPT/HCPCS: 71250

== ENCOUNTER 2020-08-28 13:47 | Outpatient (RCR) | payer OTHER, SELFPAY ==
[2020-06-05 09:44] VITALS: BMI 28.3
[2020-09-18] MEDS: COVID-19 VACC, MRNA(PFIZER)/PF 30 MCG/0.3 ML SYRINGE IM (08:02)
== END 2020-11-20 23:59 ==
LOC: IMMUN 13:47
PROVIDERS: PCP Family Medicine; Referring Provider Family Medicine; Visit Provider Family Medicine
DX: Z23 Encounter for immunization (principal)
CPT/HCPCS: 0001A; 0002A; 91300

== ENCOUNTER → 2020-10-25 11:41 | Outpatient (CLI) | payer OTHER, SELFPAY ==
--- NOTE | 2020-10-25 11:43 | BI_ITS ---
MAMMOGRAPHY - BILATERAL SCREENING REASON FOR EXAM: Female, 60 years old. Routine annual screening examination. PERTINENT HISTORY: Personal history of breast cancer. Prior right lumpectomy and radiation and chemotherapy. TECHNIQUE: Digital bilateral breast manuel (3D mammographic acquisition) in the CC and MLO projections. 2-D mediolateral oblique (MLO) and craniocaudad (CC) views of both breasts were obtained. CAD: Full Field Digital Mammography with Computer Added Detection was performed. COMPARISON: Comparison is made with prior outside examination dated 05/19/2019. FINDINGS: Breast Composition: There are scattered areas of fibroglandular density. There are no dominant masses or suspicious calcifications. A pacemaker battery pack is seen in the left axillary region. Stable microcalcifications in the upper-outer quadrant of the right breast. Stable mild increased markings in the lateral aspect of the right breast interpreted with prior lumpectomy at that site. No other significant abnormalities are identified. There has been no significant change since the prior study. BI/SCRN MAMM (CAD)W/MANUEL BILAT IMPRESSION: Stable bilateral screening mammogram. Yearly follow-up mammogram recommended. (A) ASSESSMENT CATEGORY: BIRADS Category 2: Benign. A letter regarding these results will be sent to the patient by the facility within 30 days. Approximately 10% of breast cancers are not detected by mammography. A normal mammogram should not delay biopsy of a clinically suspicious abnormality. [id number] Electronically Signed: Ronald Carranza MD at 13:11 EDT , Service support ,
== END ==
PROVIDERS: PCP Family Medicine; Referring Provider Nurse Practitioner Women's Health; Visit Provider Nurse Practitioner Women's Health
DX: Z12.31 Encounter for screening mammogram for malignant neoplasm of breast (principal); Z85.3 Personal history of malignant neoplasm of breast
CPT/HCPCS: 77063; 77067

== ENCOUNTER → 2020-12-05 16:40 | Outpatient (CLI) | payer OTHER, SELFPAY ==
--- NOTE | 2020-12-05 16:50 | CT_ITS ---
STUDY: CT CHEST WITHOUT CONTRAST REASON FOR EXAM: Female, 60 years old. FOLLOW UP RADIATION DOSAGE (If Supplied By Facility): CTDIvol = ( 8.95 ) mGy, DLP = ( 324.43 ) mGycm TECHNIQUE: Transaxial imaging was performed without the administration of intravenous contrast material. Individualized dose optimization techniques were used for this CT. COMPARISON: 05/15/2020 FINDINGS: Left subclavian pacemaker. There is no change in 1.2 cm alveolar density in the periphery the right upper lobe the lungs on image 28 likely consistent with a scar. No new noncalcified nodule or mass. There is no demonstrated pleural abnormality. Normal heart and pericardium. Normal mediastinum. Normal hilar regions. Normal unenhanced pulmonary arteries. Normal aorta arch and descending thoracic aorta. Normal osseous structures. Diffusely decreased attenuation of hepatic parenchyma consistent with fatty infiltration. CT/Chest without Contrast IMPRESSION: No change in probable scar in the periphery the right upper lobe. Follow-up CT is recommended in 6 months document stability. Electronically Signed: Akshat Mayberry MD at 17:14 EDT Tel , Service support ,
== END ==
PROVIDERS: PCP Family Medicine; Referring Provider Nurse Practitioner Acute Care; Visit Provider Nurse Practitioner Acute Care
DX: R91.1 Solitary pulmonary nodule (principal)
CPT/HCPCS: 71250

== ENCOUNTER → 2020-12-06 09:33 | Outpatient (CLI) | payer OTHER, SELFPAY ==
[2020-12-06 12:17] LABS: ALB/GLOB Ratio 1.1 RATIO (0.9-2.4); AST(SGOT) 13 U/L (15-37); Alanine Aminotransfer ALT/SGPT 22 U/L (13-56); Albumin, Serum 3.6 g/dL (3.2-5.0); Alkaline Phosphatase 65 U/L (45-117); Anion Gap 4 (5-15); BUN 14 mg/dL (7-18); BUN/Creat Ratio 21.9 RATIO (10-20); Calcium,Total 8.8 mg/dL (8.5-10.1); Chloride 107 mmol/L (98-107); Cholesterol 135 mg/dL (200); Creatinine, Serum 0.64 mg/dL (0.55-1.02); EST Glomerular Filtration Rate 101 mL/min (>60); Est Glom Filt Rate - Afr Amer 122 mL/min (>60); Globulin 3.4 g/dL (2.2-4.2); Glucose 152 mg/dL (74-106); High Density Lipoprotein 69 mg/dL; Sodium Level 141 mmol/L (136-145); Triglycerides 85 mg/dL; Very Low Density Lipoprotein 17 mg/dL (5-40)
[2020-12-06 12:19] LABS: Hemoglobin A1c 7.3 % (3.8-5.6)
[2020-12-06 12:35] LABS: Microalbumin,Random Urine 64.9 mg/L (NO RANGE EST.); Microalbumin:Creatinine Ratio 35.9 mg/g CRE (<30 mg/g CRE)
== END ==
PROVIDERS: PCP Family Medicine; Referring Provider Family Medicine; Visit Provider Family Medicine
DX: E11.9 Type 2 diabetes mellitus without complications (principal)
CPT/HCPCS: 36415; 80053; 80061; 82043; 82570; 83036

== ENCOUNTER → 2021-01-31 08:59 | Outpatient (CLI) | payer OTHER, SELFPAY ==
[2020-12-10 06:46] VITALS: BMI 30.8
--- NOTE | 2021-01-31 09:01 | ECHOCS_ITS ---
Version 2 Reason For Study: DYSPNEA/SOB Procedure This was a 2D Doppler, Color Flow transthoracic echocardiogram. The study was technically difficult. Contrast injection was performed. Left Ventricle Normal LV size. The estimated ejection fraction is 53 %. Stage 1 diastolic dysfunction. No regional wall motion abnormalities noted. Right Ventricle Normal RV size. ICD or pacer leads identified within the right ventricle. Normal systolic function. Atria Normal left atrium. Normal right atrium. Mitral Valve Normal mitral valve. Tricuspid Valve Normal tricuspid valve. Aortic Valve Trisinus/trileaflet aortic valve. Mild (1+) aortic valve insufficiency. Pulmonic Valve Normal pulmonic valve. Great Vessels Normal aortic root. The pulmonary artery is normal size. Normal inferior vena cava. Pericardium/Pleural No pericardial effusion. Medication 22 gauge I.V. with prn adaptor inserted into left arm. Diluted definity 3.0ml given slow IV push to enhance endocardial definition. MMode/2D Measurements & Calculations LVIDd: 6.0 cm IVSd: 0.93 cm Ao root diam: 3.5 cm LVIDs: 5.0 cm LVPWd: 1.0 cm RVDd: 2.4 cm FS: 17.5 % LAV(MOD-bp): 58.3 ml LA dimension(2D): 3.4 cm LAV(MOD-bp) Indexed: 33.9 ml/m2 LAV(MOD-sp2): 58.7 ml LAV(MOD-sp4): 45.1 ml Time Measurements MV dec time: 0.28 sec Doppler Measurements & Calculations MV E max kirill: 48.0 cm/sec Lat Peak E' Kirill: 3.3 cm/sec Med Peak E' Kirill: 2.8 cm/sec MV A max kirill: 63.9 cm/sec E/E' lat: 14.6 E/E' med: 16.9 MV E/A: 0.75 Ao V2 max: 123.5 cm/sec AI max kirill: 346.3 cm/sec LV V1 max: 94.6 cm/sec Ao max P.1 mmHg AI max P.0 mmHg LV V1 max P.6 mmHg AI dec slope: 118.3 cm/sec2 AI P1/2t: 857.3 msec PA V2 max: 78.1 cm/sec ECHO/Echo Complete W/ Contrast Interpretation Summary Normal LV size. The estimated ejection fraction is 53 %. No regional wall motion abnormalities noted. Stage 1 diastolic dysfunction. Contrast injection was performed. Compared to previous study, the left ventricu lar systolic function has improved.. Ordering Physician: Omari Glass Referring Physician: Clifford Kate Performed By: Kari Thibodeaux, DESTINI, RVT
== END ==
PROVIDERS: PCP Family Medicine; Referring Provider Internal Medicine Cardiovascular Disease; Visit Provider Internal Medicine Cardiovascular Disease
DX: R06.00 Dyspnea, unspecified (principal); R06.02 Shortness of breath
CPT/HCPCS: 93306; Q9957; A4216; C8929; J3490

== ENCOUNTER → 2021-04-09 08:49 | Outpatient (CLI) | payer OTHER, SELFPAY ==
[2021-04-09 10:08] LABS: Anion Gap 6 (5-15); BUN 11 mg/dL (7-18); BUN/Creat Ratio 14.6 RATIO (10-20); Calcium,Total 8.6 mg/dL (8.5-10.1); Chloride 104 mmol/L (98-107); Cholesterol 145 mg/dL (200); Creatinine, Serum 0.75 mg/dL (0.55-1.02); EST Glomerular Filtration Rate 83 mL/min (>60); Est Glom Filt Rate - Afr Amer 100 mL/min (>60); Glucose 171 mg/dL (74-106); High Density Lipoprotein 68 mg/dL; Potassium 3.8 mmol/L (3.5-5.1); Sodium Level 140 mmol/L (136-145); Triglycerides 90 mg/dL; Very Low Density Lipoprotein 18 mg/dL (5-40)
== END ==
PROVIDERS: PCP Family Medicine; Referring Provider Family Medicine; Visit Provider Family Medicine
DX: I10 Essential (primary) hypertension (principal)
CPT/HCPCS: 36415; 80048; 80061

== ENCOUNTER → 2021-10-29 | Outpatient (CLI) | payer OTHER, SELFPAY ==
--- NOTE | 2021-10-29 09:58 | BI_ITS ---
MAMMOGRAPHY - BILATERAL SCREENING REASON FOR EXAM: Female, 61 years old. Routine annual screening examination. PERTINENT HISTORY: Personal history of breast cancer. Prior right lumpectomy with radiation and chemotherapy. Aunt with breast cancer. TECHNIQUE: Digital bilateral breast manuel (3D mammographic acquisition) in the CC and MLO projections. 2-D mediolateral oblique (MLO) and craniocaudad (CC) views of both breasts were obtained. CAD: Full Field Digital Mammography with Computer Added Detection was performed. COMPARISON: Comparison is made with prior study dated 10/25/2020 and 07/14/2012. FINDINGS: Breast Composition: There are scattered areas of fibroglandular density. There are no dominant masses or suspicious calcifications. Stable macrocalcifications in the right axillary region. A pacemaker battery pack is once again seen in the left axillary region. Stable postoperative changes in the axillary region of the right breast and compared with prior right lumpectomy No other significant abnormalities are identified. There has been no significant change since the prior study. BI/SCRN MAMM (CAD)W/MANUEL BILAT IMPRESSION: Stable bilateral screening mammogram. Yearly follow-up mammogram recommended. (A) ASSESSMENT CATEGORY: BIRADS Category 2: Benign. A letter regarding these results will be sent to the patient by the facility within 30 days. Approximately 10% of breast cancers are not detected by mammography. A normal mammogram should not delay biopsy of a clinically suspicious abnormality. [id number] Electronically Signed: Ronald Carranza MD at 11:14 EDT ,
--- NOTE | 2021-10-29 09:59 | BD_ITS ---
STUDY: DUAL ENERGY X-RAY ABSORPTIOMETRY / DXA REASON FOR EXAM: Female, 61 years old. SCREENING TECHNIQUE: Bone Mineral Density (BMD) measurements of lumbar spine and bilateral hips were obtained. COMPARISON: None. FINDINGS: Lumbar Spine (L1-L4): g/cm2 (0.710) / T-score (-3.6) / Z-score (-2.0) Findings are suggestive of osteoporosis with a high fracture risk. Left Femur Total: g/cm2 (0.891) / T-score (-0.4) / Z-score (0.6) Left Femoral Neck: g/cm2 (0.678) / T-score (-1.5) / Z-score (-0.2) Right Femur Total: g/cm2 (0.881) / T-score (-0.5) / Z-score (0.5) Right Femoral Neck: g/cm2 (0.666) / T-score (-1.6) / Z-score (-0.3) BD/Dexa Bone Density Study IMPRESSION: The patient is considered osteoporotic as outlined below according to World Chidi Organization (WHO) criteria with a high fracture risk. Reference Information: The T-score is the number of standard deviations above or below the standard which is normal for young adults at their peak bone mineral density. The World Health Organization (WHO) interprets the T-scores as follows: Above -1 Normal bone density Between -1 and -2.5 Osteopenia Equal to / or below -2.5 Osteoporosis As a practical clinical guideline, osteopenia may be graded as follows: Mild -1 through -1.5 Moderate -1.6 through -2.0 Severe -2.1 through -2.4 The Z-score is the number of standard deviations above or below age-matched controls. A Z-score of less than -1.5 would be considered abnormal. References: 1. NIH Osteoporosis and Related Bone Diseases www osteo.org 2. International Society for Clinical Densitometry www iscd.org 3. National Osteoporosis Foundation www nof.org Electronically Signed: Ronald Carranza MD at 15:18 EDT ,
== END | disposition home or self-care (01) ==
LOC: OPBD 09:56
PROVIDERS: PCP Family Medicine; Visit Provider Internal Medicine Medical Oncology
DX: Z13.820 Encounter for screening for osteoporosis (principal); Z12.31 Encounter for screening mammogram for malignant neoplasm of breast; Z85.3 Personal history of malignant neoplasm of breast
CPT/HCPCS: 77063; 77067; 77080

== ENCOUNTER → 2021-11-08 | Outpatient (CLI) | payer OTHER, SELFPAY ==
--- NOTE | 2021-11-08 09:02 | NM_ITS ---
CLINICAL: Female, 61 years old. right sided chest wall pain; h/o breast ca WHOLE BODY NUCLEAR BONE SCAN TECHNIQUE: Following the IV administration of 26 mCi of Tc MDP, whole body bone imaging was performed with a gamma camera following a three hour delay. COMPARISON STUDIES : NM - None. CR - Not available for review at this time. CT - Not available for review at this time. MR - Not available for review at this time. US - Not available for review at this time. FINDINGS: There is a normal concentration of radiopharmaceutical throughout the axial and appendicular skeletal system without either a focal decrease or increase in uptake. There are no areas of increased uptake to suggest metastatic disease. Normal excretion by both kidneys into the bladder. NM/Bone Scan Whole Body IMPRESSION: Normal whole body nuclear bone scan. Electronically Signed: Akshat Mayberry MD at 9:12 EDT ,
== END | disposition home or self-care (01) ==
LOC: NM 09:01
PROVIDERS: PCP Family Medicine; Referring Provider Nurse Practitioner Family; Visit Provider Nurse Practitioner Family
DX: R07.89 Other chest pain (principal); Z85.3 Personal history of malignant neoplasm of breast
CPT/HCPCS: 78306; A9503

== ENCOUNTER → 2022-01-06 | Outpatient (CLI) | payer OTHER, SELFPAY ==
--- NOTE | 2022-01-06 12:43 | CT_ITS ---
STUDY: CT CHEST WITHOUT CONTRAST REASON FOR EXAM: Female, 61 years old. RUL nodule -- 2 year follow up RADIATION DOSAGE (If Supplied By Facility): CTDIvol = ( 8.01 ) mGy, DLP = ( 262.47 ) mGycm TECHNIQUE: Transaxial imaging was performed without the administration of intravenous contrast material. Multiplanar coronal and sagittal images were reformatted. Individualized dose optimization techniques were used for this CT. COMPARISON: Comparison is made with prior study dated 12/05/2020. FINDINGS: CHEST Stable 1.2 cm alveolar density in the peripheral lateral aspect of the right upper lobe as seen on axial image #19. This may represent a focal area of scarring. Mild degree of emphysematous changes. With the localized bronchiectasis There is no demonstrated pleural abnormality. There are calcifications of the coronary arteries. The left-sided pacemaker device is seen. There are multiple small lymph nodes within the mediastinum, which are normal in size and morphology most compatible with reactive lymph hyperplasia. Calcified right hilar lymph nodes. Normal unenhanced pulmonary arteries. Normal aorta arch and descending thoracic aorta. There are multi-level degenerative changes of the thoracic spine. There is no demonstrated abnormality of the visualized upper abdomen. CT/Chest without Contrast IMPRESSION: Stable examination. Electronically Signed: Ronald Carranza MD at 8:32 EDT ,
--- NOTE | 2022-01-08 11:43 | PFT ---
INTRODUCTION: The patient is a 61-year-old female that presents for pulmonary function studies secondary to a diagnosis of pulmonary nodule. Respiratory therapy reported good patient effort. Bronchodilators were used during testing. INTERPRETATION: Forced expiration spirometry demonstrates no evidence of a large airways obstructive ventilatory defect. There was no significant response to aerosolized bronchodilators. Body plethysmography was performed and revealed a decreased TLC to 2.8 L, 65% of predicted, indicative of a moderate restrictive ventilatory impairment. Diffusing capacity by single breath CO is mildly reduced. IMPRESSION: Moderate restrictive ventilatory impairment with mild reduction in diffusing capacity.
== END | disposition home or self-care (01) ==
LOC: CT 12:42
PROVIDERS: PCP Family Medicine; Referring Provider Internal Medicine Critical Care Medicine; Visit Provider Internal Medicine Critical Care Medicine
DX: R91.1 Solitary pulmonary nodule (principal); R06.00 Dyspnea, unspecified
CPT/HCPCS: 71250; 94060; 94726; 94729

== ENCOUNTER → 2022-03-05 | Outpatient (CLI) | payer OTHER, SELFPAY ==
--- NOTE | 2022-03-05 15:45 | RAD_ITS ---
EXAM: XR CHEST, 2 VIEWS CLINICAL INDICATION: COUGH TECHNIQUE: Frontal and lateral views of the chest. This report was created using [employer] report generation technology. COMPARISON: 03/02/2020 FINDINGS: LUNGS AND PLEURAL SPACES: Unremarkable. No consolidation or edema. No pneumothorax. No effusion. HEART: Mild enlargement of the cardiac silhouette. MEDIASTINUM: Central airways and mediastinal contour are unremarkable. BONES/JOINTS: Degenerative changes of the spine. SOFT TISSUES: Unremarkable. LYMPH NODES: Benign calcified hilar lymph nodes. TUBES, LINES AND DEVICES: Left chest pacer. RAD/Chest PA and Lateral IMPRESSION: No acute findings in the chest. Electronically Signed: Aroldo Diaz MD at 23:39 EDT ,
== END | disposition home or self-care (01) ==
LOC: MTRAD 15:30
PROVIDERS: PCP Family Medicine; Referring Provider Family Medicine; Visit Provider Family Medicine
DX: R05.9 Cough, unspecified (principal)
CPT/HCPCS: 71046

== ENCOUNTER → 2022-06-13 | Outpatient (CLI) | payer OTHER, SELFPAY ==
[2022-06-13 11:02] LABS: Cholesterol 140 mg/dL (200); High Density Lipoprotein 66 mg/dL; Triglycerides 107 mg/dL; Very Low Density Lipoprotein 21 mg/dL (5-40)
== END | disposition home or self-care (01) ==
LOC: MTLAB 09:21
PROVIDERS: PCP Family Medicine; Referring Provider Family Medicine; Visit Provider Family Medicine
DX: E11.9 Type 2 diabetes mellitus without complications (principal)
CPT/HCPCS: 36415; 80061

== ENCOUNTER → 2022-11-18 | Outpatient (CLI) | payer OTHER, SELFPAY ==
--- NOTE | 2022-11-18 12:55 | ECHOD_ITS ---
Reason For Study: CHF Procedure This was a 2D Doppler, Color Flow transthoracic echocardiogram. The study was technically difficult. Exam performed in department. Left Ventricle Normal LV size. Left ventricular systolic function is lower limits of normal. The estimated ejection fraction is 50 %. Stage 1 diastolic dysfunction. There is mild global hypokinesis of the left ventricle. Right Ventricle Normal RV size. Normal systolic function. Atria Normal left atrium. Normal right atrium. Mitral Valve Normal mitral valve. Tricuspid Valve Normal tricuspid valve. Mild tricuspid valve insufficiency. Aortic Valve Trisinus/trileaflet aortic valve. Pulmonic Valve The pulmonic valve is not well visualized. Great Vessels Normal aortic root. The pulmonary artery is normal size. Normal inferior vena cava. Pericardium/Pleural No pericardial effusion. Medication 22 gauge I.V. with prn adaptor inserted into right arm. Diluted definity 3ml given slow IV push to enhance endocardial definition. MMode/2D Measurements & Calculations LVIDd: 5.6 cm IVSd: 0.90 cm Ao root diam: 3.2 cm LVIDs: 4.8 cm LVPWd: 0.81 cm RVDd: 3.0 cm FS: 13.6 % LAV(MOD-bp): 63.9 ml LVAd ap4: 36.9 cm2 LVAd ap2: 31.6 cm2 LAV(MOD-bp) Indexed: 37.2 ml/m2 LVLd ap4: 7.6 cm LVLd ap2: 7.2 cm LAV(MOD-sp2): 68.7 ml EDV(MOD-sp4): 147.1 ml EDV(MOD-sp2): 114.3 ml LAV(MOD-sp4): 42.0 ml EDV(sp4-el): 152.0 ml EDV(sp2-el): 117.0 ml LVAs ap4: 26.8 cm2 LVAs ap2: 23.5 cm2 LVLs ap4: 6.5 cm LVLs ap2: 6.3 cm ESV(MOD-sp4): 92.0 ml ESV(MOD-sp2): 71.6 ml ESV(sp4-el): 93.8 ml ESV(sp2-el): 74.1 ml EF(MOD-sp4): 37.5 % EF(MOD-sp2): 37.4 % EF(sp4-el): 38.3 % SV(MOD-sp4): 55.1 ml SV(MOD-sp2): 42.7 ml SV(sp4-el): 58.1 ml LA A4 area: 14.6 cm2 LA dimension(2D): 3.8 cm RA A4 area: 12.3 cm2 TAPSE: 1.8 cm Time Measurements MV dec time: 0.25 sec Doppler Measurements & Calculations MV E max kirill: 54.6 cm/sec Lat Peak E' Kirill: 4.1 cm/sec Med Peak E' Kirill: 3.3 cm/sec MV A max kirill: 63.9 cm/sec E/E' lat: 13.4 E/E' med: 16.5 MV E/A: 0.85 Ao V2 max: 118.5 cm/sec LV V1 max: 102.3 cm/sec MV dec slope: 216.1 cm/sec2 Ao max P.6 mmHg LV V1 max P.2 mmHg Ao V2 mean: 79.3 cm/sec LV V1 mean P.4 mmHg Ao mean P.9 mmHg LV V1 mean: 73.2 cm/sec Ao V2 VTI: 28.4 cm LV V1 VTI: 23.7 cm AV (velocity ratio): 0.83 PA V2 max: 71.9 cm/sec TR max kirill: 212.1 cm/sec TR max P.0 mmHg ECHO/Echo Complete W/ Contrast Interpretation Summary Normal LV size. Left ventricular systolic function is lower limits of normal. The estimated ejection fraction is 50 %. Stage 1 diastolic dysfunction. Contrast injection was performed. Ordering Physician: Omari Glass Referring Physician: Alfa Tom Performed By: Dacia Wilson RDCS
== END | disposition home or self-care (01) ==
LOC: CVS 12:53
PROVIDERS: PCP Family Medicine; Referring Provider Internal Medicine Cardiovascular Disease; Visit Provider Internal Medicine Cardiovascular Disease
DX: I50.9 Heart failure, unspecified (principal)
CPT/HCPCS: 93306; Q9957; A4216; C8929

== ENCOUNTER → 2022-11-19 | Outpatient (CLI) | payer OTHER, SELFPAY ==
--- NOTE | 2022-11-19 08:56 | BI_ITS ---
MAMMOGRAPHY - BILATERAL SCREENING REASON FOR EXAM: Female, 62 years old. Routine annual screening examination. PERTINENT HISTORY: Personal history of breast cancer. Prior right lumpectomy and chemotherapy. On with breast cancer. TECHNIQUE: Digital bilateral breast manuel (3D mammographic acquisition) in the CC and MLO projections. 2-D mediolateral oblique (MLO) and craniocaudad (CC) views of both breasts were obtained. CAD: Full Field Digital Mammography with Computer Added Detection was performed. COMPARISON: Comparison is made with prior study October 29, 2021 and October 25, 2020. FINDINGS: Breast Composition: There are scattered areas of fibroglandular density. There are no dominant masses or suspicious calcifications. The patient is status post lumpectomy in the upper lateral aspect of the right breast with resultant postoperative scarring. Stable macrocalcifications in the upper outer quadrant of the right breast. A pacemaker battery pack is once again seen in the left axillary region. No other significant abnormalities are identified. There has been no significant change since the prior study. BI/SCRN MAMM (CAD)W/MANUEL BILAT IMPRESSION: Stable bilateral screening mammogram. Yearly follow-up mammogram recommended. (A) ASSESSMENT CATEGORY: BIRADS Category 2: Benign. A letter regarding these results will be sent to the patient by the facility within 30 days. Approximately 10% of breast cancers are not detected by mammography. A normal mammogram should not delay biopsy of a clinically suspicious abnormality. [id number] Electronically Signed: Ronald Carranza MD at 10:25 EDT ,
== END | disposition home or self-care (01) ==
LOC: OPBI 08:55
PROVIDERS: PCP Family Medicine; Referring Provider Obstetrics & Gynecology; Visit Provider Obstetrics & Gynecology
DX: Z12.31 Encounter for screening mammogram for malignant neoplasm of breast (principal)
CPT/HCPCS: 77063; 77067

== ENCOUNTER 2022-12-26 06:03 | Day surgery (SDC) | payer OTHER, SELFPAY ==
--- NOTE | 2022-12-26 06:24 | HP.PCM_ITS ---
History and Physical Date of Admission: 12/26/22 Intake Vital Signs 11/18/2307:38 Height 5 ft 1 in Weight: 162 lb 2 oz BMI 30.6 BP 130/77 H Blood Pressure Location Rt brachial Position Sitting Respiration 17 Pulse 70 Pulse Source Monitor Temp 97.1 F L Temp Source Temporal Pulse Oximetry (%) 97 Oxygen Delivery Method room air Intake Visit Reasons: COLONOSCOPY Chief Complaint: colonoscopy Is patient in pain?: No Allergies No Known Allergies Allergy (Verified 11/17/22 08:39) Medications blood-glucose meter #1 ea 11/21/19 [History Confirmed 11/17/22] lancets (Accu-Chek Softclix Lancets) #50 ea 11/21/19 [History Confirmed 11/17/22] escitalopram oxalate 5 mg tablet (Lexapro) 5 mg PO DAILY mental health 11/24/19 [History Confirmed 11/17/22] atorvastatin 20 mg tablet 20 mg PO QHS 03/29/20 [History Confirmed 11/17/22] empagliflozin 10 mg tablet (Jardiance) 10 mg PO DAILY 09/17/21 [History Confirmed 11/17/22] famotidine 20 mg tablet 20 mg PO DAILY 10/08/21 [History Confirmed 11/17/22] aspirin 81 mg tablet,delayed release (Adult Low Dose Aspirin) 81 mg PO DAILY 10/18/21 [History Confirmed 11/17/22] sacubitril 24 mg-valsartan 26 mg tablet (Entresto) 1 tab PO BID #60 tabs 11/21/21 [Rx Confirmed 11/17/22] zinc gluconate 50 mg tablet 50 mg PO DAILY 04/07/22 [History Confirmed 11/17/22] albuterol sulfate 90 mcg/actuation aerosol inhaler 2 puff inhalation Q6H PRN shortness of breath or wheezing #8.5 grams 06/19/22 [Rx Confirmed 11/17/22] ascorbic acid (vitamin C) 500 mg capsule 500 mg PO DAILY 06/19/22 [History Confirmed 11/17/22] calcium carbonate 600 mg-vitamin D3 12.5 mcg (500 unit) capsule (Calcium 600 with Vitamin D3) 1 cap PO DAILY 06/19/22 [History Confirmed 11/17/22] furosemide 20 mg tablet 20 mg PO DAILY water pill #90 tabs 06/19/22 [Rx Confirmed 11/17/22] carvedilol 25 mg tablet 25 mg PO BID #180 tabs 10/14/22 [Rx Confirmed 11/17/22] metformin 1,000 mg tablet 1,000 mg PO BID 10/14/22 [History Confirmed 11/17/22] PFSH Medical History Arthritis Breast CA Essential (primary) hypertension History of CVA (cerebrovascular accident) (10/26/19) History of migraine headaches Lung nodule LV dysfunction Meckels diverticulum Nonischemic cardiomyopathy Nonrheumatic mitral (valve) insufficiency Nonrheumatic tricuspid (valve) insufficiency Pericardial effusion Pleural effusion, bilateral Secondary pulmonary hypertension Type 2 diabetes mellitus Surgical History H/O lumpectomy History of appendectomy History of delivery History of implantable cardiac defibrillator (ICD) (03/01/20) History of left heart catheterization (01/06/20) History of wisdom tooth extraction Family History Mother Hypertension Myocardial infarction MigrainesFather Diabetes Cancer prostate HypertensionGrandmother Hypertension CVA (cerebral vascular accident) Heart disease Cancer (paternal- cervical cancer; maternal- uterine cancer)Grandfather Hypertension Colon cancer Cancer lungAunt Breast cancerBrother Hypertension Social History household members: spouse housing: house number of children: 3 current occupational status: unemployed 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 Her last colonoscopy was 10 years ago. She denies any abdominal pain or blood in the stool. She has no family history of colon cancer. ROS General General: Yes breast cancer; No weight change, appetite, fatigue, colon cancer or weakness HEENT HEENT: No difficulty swallowing, eye injury, eye surgery, swollen glands or hoarseness Endo Endocrine: Yes diabetes mellitus; No thyroid disease, thyroid cancer, Hair loss, heat intolerance or cold intolerance Skin Skin: No rash or changing moles Musc Musculoskeletal: No back problems, arthritis, rheumatoid arthritis, gout or joint pain Cardio Cardiovascular: Yes pacemaker and high blood pressure; No murmur, heart disease, atrial fibrillation, heart attack, heart stent, palpitations, shortness of breat with exertion or chest pain Additional Details: pacemaker and defibrillator placed in 2019 Psych Psychiatric: No depression, anxiety or hearing voices Resp Respiratory: Yes shortness of breath, No sleep apnea, No cough, No COPD, No asthma, No emphysema and No wheezing Gastro Gastrointestinal: No abdominal pain, No nausea or vomiting, No diarrhea, No constipation, No blood in stool, No acid reflux, No hemorrhoids, No ulcers, No gallbladder problem and No black,tarry stools Dereck Hematologic: No blood thinners, No blood disorders, No bleeding, No anemia and No blood clots Neuro Neurologic: No system reviewed and no additional complaints, except as documented, No as per HPI, No abnormal gait, No abnormal hearing, No abnormal movements, No abnormal speech, No behavioral changes, No burning sensations, No confusion, No convulsions, No disequilibrium, No dizziness, No localized weakness, No frequent falls, No headache(s), No lack of coordination, No loss of vision, No memory loss, No numbness, No other visual disturbances, No radicular pain, No restless legs, No sensory deficit, No syncope, No tingling, No tremor(s), No weakness and No other Exam Const General: cooperative Orientation: alert and oriented x3 HENMT Head: normal to inspection Neck Neck: normal visual inspection and full ROM Chest Chest palpation & inspection: normal inspection of the chest Resp Effort & Inspection: normal respiratory effort Auscultation: clear to auscultation bilaterally Cardio Rate: regular rate Rhythm: regular rhythm GI Inspection: non-distended Palpation: soft and nontender Skin General: no rashes or lesions noted Neuro General: patient alert and patient oriented x3 Extrem General: full ROM Psych Appearance: grossly normal Mental Status: mental status grossly normal Assessment and Plan Assessment and Plan (1) Screen for colon cancer: Status: Acute Plan: I explained endoscopy in detail to the patient. I explained the risks including but not limited to stroke or heart attack with anesthesia, perforation of the GI tract, bleeding, infection. I explained that any of these could necessitate further emergency surgery. The patient understands and all questions were answered sufficiently. The patient wishes to proceed with procedure. Uriel Mitchell MD Pager: [facility] [address] [place] [address], [address] [place] [address] Office: I have examined the patient and the H&P has been reviewed. There are no clinical changes since date of exam.
[2022-12-26 06:53] VITALS: BP 105/71; PULSE 60; RESP 16; TEMP 36.7; O2SAT 97; BMI 29.1
[2022-12-26] MEDS: Lactated Ringers 1,000 ML 15 ML IV (06:57)
[2022-12-26] MEDS: Lubricating Jelly 60 GM Tube 30 GM (07:30)
[2022-12-26 07:49] VITALS: BP 74/38; PULSE 61; RESP 16; TEMP 36.4; O2SAT 94
[2022-12-26 07:55] VITALS: BP 105/71; BP 83/48; PULSE 55; RESP 16; O2SAT 92
[2022-12-26 07:59] VITALS: BP 105/71; BP 88/52; PULSE 56; RESP 16; O2SAT 97
--- NOTE | 2022-12-26 07:59 | OP.CCLET_ITS ---
12/26/2022 Alfa Tom MD [address] [place] [address] Re : Colonoscopy procedure for Mely Gamble Dear Dr. Tom This procedure was performed on Monday, December 26, 2022. My impressions and recommendations are as follows: Impressions : - The entire examined colon is normal on direct and retroflexion views. - No specimens collected. Recommendations : - Discharge patient to home. - Resume previous diet. - Continue present medications. - Repeat colonoscopy in 10 years for screening purposes. My findings are described in the full procedure note, which is enclosed. If I can be of further assistance, please feel free to contact me at Doctor phone number(s): , Work: . Sincerely, Uriel Mitchell MD 12/26/2022 7:58:38 AM This report has been signed electronically.
--- NOTE | 2022-12-26 07:59 | OP.COLON_ITS ---
Patient Name: Mely Gamble Procedure Date: 12/26/2022 6:26 AM Date of : 1960 Age: 62 Procedure: Colonoscopy Indications: Screening for colorectal malignant neoplasm Providers: Uriel Mitchell MD Medicines: Monitored Anesthesia Care Patient Profile: This is a 62 year old female. Refer to note in patient chart for documentation of history and physical. Last Colonoscopy: 10 years ago. Complications: No immediate complications. Procedure: Pre-Anesthesia Assessment: - Prior to the procedure, a History and Physical was performed, and patient medications and allergies were reviewed. The patient's tolerance of previous anesthesia was also reviewed. The risks and benefits of the procedure and the sedation options and risks were discussed with the patient. All questions were answered, and informed consent was obtained. Prior Anticoagulants: The patient has taken no previous anticoagulant or antiplatelet agents. After reviewing the risks and benefits, the patient was deemed in satisfactory condition to undergo the procedure. After I obtained informed consent, the scope was passed under direct vision. Throughout the procedure, the patient's blood pressure, pulse, and oxygen saturations were monitored continuously. The Colonoscope was introduced through the anus and advanced to the cecum, identified by appendiceal orifice and ileocecal valve. The colonoscopy was performed without difficulty. The patient tolerated the procedure well. The quality of the bowel preparation was good. Scope In: 7:33:18 AM Scope Withdrawal Time 0 hours 6 minutes 8 seconds Scope Out: 7:43:51 AM Total Procedure Duration Time 0 hours 10 minutes 33 seconds Findings: The entire examined colon appeared normal on direct and retroflexion views. Impression: - The entire examined colon is normal on direct and retroflexion views. - No specimens collected. Recommendation: - Discharge patient to home. - Resume previous diet. - Continue present medications. - Repeat colonoscopy in 10 years for screening purposes. Procedure Code(s): --- Professional --- 01148, Colonoscopy, flexible; diagnostic, including collection of specimen(s) by brushing or washing, when performed (separate procedure) Diagnosis Code(s): --- Professional --- Z12.11, Encounter for screening for malignant neoplasm of colon CPT copyright 2017 [employer]. All rights reserved. The codes documented in this report are preliminary and upon residential supervisor review may be revised to meet current compliance requirements. Uriel Mitchell MD 12/26/2022 7:58:38 AM This report has been signed electronically. Number of Addenda: 0 Note Initiated On: 12/26/2022 6:26 AM
[2022-12-26 08:04] VITALS: BP 105/71; BP 90/48; PULSE 60; RESP 16; TEMP 36.3; O2SAT 96
[2022-12-26 08:18] VITALS: BP 105/71
== END 2022-12-26 08:29 | disposition home or self-care (01) ==
LOC: EN 06:04 → AC 06:06
PROVIDERS: PCP Family Medicine; Referring Provider Family Medicine; Visit Provider Surgery
PROC: 0DJD8ZZ Inspection of Lower Intestinal Tract, Via Natural or Artificial Opening Endoscopic (ICD-10-PCS; CPT 45378; principal; 2022-12-26 07:25)
DX: Z12.11 Encounter for screening for malignant neoplasm of colon (principal); I42.8 Other cardiomyopathies; E11.9 Type 2 diabetes mellitus without complications; I10 Essential (primary) hypertension; K21.9 Gastro-esophageal reflux disease without esophagitis; Z79.84 Long term (current) use of oral hypoglycemic drugs; Z86.73 Personal history of transient ischemic attack (TIA), and cerebral infarction without residual deficits; Z79.82 Long term (current) use of aspirin; Z79.899 Other long term (current) drug therapy; Z95.810 Presence of automatic (implantable) cardiac defibrillator
CPT/HCPCS: 45378; J7120; J2405

== ENCOUNTER → 2023-10-26 | Outpatient (CLI) | payer OTHER, SELFPAY ==
[2023-10-29 13:08] LABS: HPV APTIMA, High Risk Negative (Negative)
== END | disposition home or self-care (01) ==
LOC: LABSPEC 10:50
PROVIDERS: PCP Family Medicine; Referring Provider Nurse Practitioner Women's Health; Visit Provider Nurse Practitioner Women's Health
DX: Z12.39 Encounter for other screening for malignant neoplasm of breast (principal)
CPT/HCPCS: 87624; 88175; G0145

== ENCOUNTER → 2023-11-25 | Outpatient (CLI) | payer OTHER, SELFPAY ==
--- NOTE | 2023-11-25 10:10 | BI_ITS ---
MAMMOGRAPHY - BILATERAL SCREENING REASON FOR EXAM: Female, 63 years old. Routine annual screening examination. PERTINENT HISTORY: Personal history of breast cancer. Prior right lumpectomy with radiation. TECHNIQUE: Digital bilateral breast manuel (3D mammographic acquisition) in the CC and MLO projections. 2-D mediolateral oblique (MLO) and craniocaudad (CC) views of both breasts were obtained. CAD: Full Field Digital Mammography with Computer Added Detection was performed. COMPARISON: Comparison is made with prior study dated November 19, 2022 and October 29, 2021. FINDINGS: Breast Composition: There are scattered areas of fibroglandular density. There are no dominant masses or suspicious calcifications. The patient is status post lumpectomy with postoperative scarring in the upper lateral aspect of the right breast. Stable macrocalcifications in the upper-outer quadrant of the right breast. A battery from the pacemaker is seen in the left axilla. No other significant abnormalities are identified. There has been no significant change since the prior study. BI/SCRN MAMM (CAD)W/MANUEL BILAT IMPRESSION: Stable bilateral screening mammogram. Yearly follow-up mammogram recommended. (A) ASSESSMENT CATEGORY: BIRADS Category 2: Benign. A letter regarding these results will be sent to the patient by the facility within 30 days. Approximately 10% of breast cancers are not detected by mammography. A normal mammogram should not delay biopsy of a clinically suspicious abnormality. [id number] Electronically Signed: Ronald Carranza MD at 12:16 EDT ,
== END | disposition home or self-care (01) ==
LOC: OPBI 10:08
PROVIDERS: PCP Family Medicine; Referring Provider Nurse Practitioner Women's Health; Visit Provider Nurse Practitioner Women's Health
DX: Z12.31 Encounter for screening mammogram for malignant neoplasm of breast (principal); Z85.3 Personal history of malignant neoplasm of breast
CPT/HCPCS: 77063; 77067

== ENCOUNTER 2024-03-15 11:50 | Emergency (ER) | payer OTHER, SELFPAY ==
[2024-03-15 11:51] VITALS: BP 155/78; PULSE 71; RESP 14; TEMP 37.2; O2SAT 98; BMI 29.9
--- NOTE | 2024-03-15 12:12 | EDS_ITS ---
HPI History of Present Illness Chief Complaint: Flank Pain Informant: patient Onset/Context/Timing Onset: Hours (1) Context: Sudden Onset Timing: Continuous Quality: Sharp, aching, burning, stabbing Location: Left flank Worsened by: Nothing Relieved by: Nothing Narrative Narrative: Patient presents with left flank pain that began today. Patient states it began rather suddenly. Patient states it began approximate 1 hour prior to arrival. Patient describes her pain as sharp, aching, burning, and stabbing. Patient states nothing makes it better and nothing makes it worse. Patient is unable to find position of comfort. Patient states she had some nausea and vomiting at home. Patient states she is still nauseated here. Patient admits to some urinary frequency and some dysuria. Patient also admits to some subjective chills and sweats. Patient denies any history of kidney stones. [facility] Medical History Wears glasses Cancer Anxiety Alcohol use Dietary restriction Gastric reflux Non-smoker History of echocardiogram Cardiology follow-up encounter Meckels diverticulum History of CVA (cerebrovascular accident) (10/26/19) Type 2 diabetes mellitus Essential (primary) hypertension Lung nodule Pleural effusion, bilateral Pericardial effusion Nonischemic cardiomyopathy Nonrheumatic mitral (valve) insufficiency Secondary pulmonary hypertension Nonrheumatic tricuspid (valve) insufficiency LV dysfunction Breast CA History of migraine headaches Arthritis Home Medications ?Medication ?Instructions ?Recorded ?Last Taken ?Type blood-glucose meter #1 ea 11/21/19 Unknown History lancets (Accu-Chek Softclix #50 ea 11/21/19 Unknown History Lancets) escitalopram oxalate 5 mg tablet 5 mg PO DAILY mental health 11/24/19 01/06/20 History (Lexapro) atorvastatin 20 mg tablet 20 mg PO QHS 03/29/20 Unknown History famotidine 20 mg tablet 20 mg PO DAILY 10/08/21 12/26/22 05:00 History aspirin 81 mg tablet,delayed 81 mg PO DAILY 10/18/21 Unknown History release (Adult Low Dose Aspirin) zinc gluconate 50 mg tablet 50 mg PO DAILY 04/07/22 Unknown History albuterol sulfate 90 mcg/actuation 2 puff inhalation Q6H PRN 06/19/22 Unknown Rx aerosol inhaler shortness of breath or wheezing #8.5 grams ascorbic acid (vitamin C) 500 mg 500 mg PO DAILY 06/19/22 Unknown History capsule calcium 600 mg (as 1 cap PO DAILY 06/19/22 Unknown History carbonate)-vitamin D3 12.5 mcg (500 unit) capsule (Calcium with Vit D3) furosemide 20 mg tablet 20 mg PO DAILY water pill #90 tabs 06/19/22 Unknown Rx metformin 1,000 mg tablet 1,000 mg PO BID 10/14/22 Unknown History sacubitril 24 mg-valsartan 26 mg 1 tab PO BID #60 tabs 02/11/23 Unknown Rx tablet (Entresto) carvedilol 25 mg tablet 25 mg PO BID #180 tabs 10/02/23 Unknown Rx empagliflozin 10 mg tablet 25 mg PO DAILY 10/20/23 Unknown History (Jardiance) hydrocodone-acetaminophen 5-325mg 1 tab PO Q6H PRN PRN Pain 3 days 03/15/24 Unknown Rx 5mg-325mg #10 TABLETS Allergy/AdvReac Type Severity Reaction Status Date / Time No Known Allergies Allergy Verified 03/15/24 11:51 Family History Mother Hypertension Myocardial infarction Migraines Father Diabetes Cancer prostate Hypertension Grandmother Hypertension CVA (cerebral vascular accident) Heart disease Cancer (paternal- cervical cancer; maternal- uterine cancer) Grandfather Hypertension Colon cancer Cancer lung Aunt Breast cancer Brother Hypertension Surgical History History of wisdom tooth extraction History of implantable cardiac defibrillator (ICD) (03/01/20) History of left heart catheterization (01/06/20) H/O lumpectomy History of delivery History of appendectomy Social History household members: spouse housing: house number of children: 3 current occupational status: unemployed 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 Smoking Status: Never smoker alcohol intake: never substance use type: does not use caffeine: Yes frequency: 3-4 times per week seatbelt use: always do you feel safe at home: Yes additional social history: - [place] MONTESINOS ROS ED Constitutional Constitutional ED: Reports chills and subjective; Denies fever(s) Eyes Eyes: Denies blurry vision or change in vision ENT ENT ED: Denies rhinorrhea or sore throat Cardiovascular Cardiovascular: Denies chest pain or palpitations Respiratory/Chest Respiratory/Chest: Denies cough or dyspnea Gastrointestinal Gastrointestinal: Reports nausea and vomiting Genitourinary Genitourinary ED: Reports dysuria and urinary frequency; Denies hematuria Musculoskeletal Musculoskeletal: Reports back pain; Denies neck pain Integumentary Denies abscess or rash Neurologic Neurologic: Denies headache(s) or weakness Allergic/Immunologic Allergic/Immunologic ED: Denies mouth swelling or urticaria EXAM Physical Exam Const Vital Signs: 03/15/24 11:51 03/15/24 13:51 Temperature 99 F Temperature Source Temporal Pulse Rate 71 78 Respiratory Rate 14 18 Blood Pressure 155/78 H 115/64 Blood Pressure Mean 103 81 Pulse Ox 98 97 Oxygen Delivery Method Room Air Room Air Positive well nourished and well developed General Appearance ED: well developed and NAD HEENT Reports moist mucous membranes Neck supple and no JVD Resp normal respiratory effort and clear to auscultation bilaterally Cardio regular rate and regular rhythm GI non-distended Palpation: soft and tender LLQ and LUQ; Negative for guarding or rebound tenderness present Back/Spine General Back: CVA tenderness left Neuro oriented x3, CN's II-XII intact bilaterally and no sensory deficits noted Sensorium / Orientation: alert Motor Exam: strength 5/5 throughout Psych mental status grossly normal MDM MDM MDM Narrative Medical decision making narrative: Differential diagnosis includes ureteral calculus, pyelonephritis, diverticulitis, gastroenteritis, and urinary tract infection. CBC will be obtained to assess for leukocytosis and anemia. Basic metabolic profile will be obtained to assess for electrolyte abnormality and renal function. Urinalysis will be obtained to assess for urinary tract infection and hematuria. CT scan of the abdomen and pelvis will be obtained to assess for ureteral calculus and diverticulitis. Lab Data Attestation: I reviewed the patient's lab results. Lab results narrative: CBC was reviewed and was within normal limits. Basic metabolic profile was reviewed. Glucose was mildly elevated at 171. Anion gap was normal. The remainder is within normal limits. Urinalysis was reviewed. There is no evidence of urinary tract infection or hematuria. Labs: Laboratory Results - last 24 hr 03/15/24 03/15/24 12:42 13:24 WBC 8.8 RBC 4.53 Hgb 13.1 Hct 39.8 MCV 87.9 MCH 28.9 MCHC 32.9 RDW Std Deviation 42.3 RDW Coeff of Ana 13.2 Plt Count 212 MPV 9.4 Immature Gran % (Auto) 0.300 Neut % (Auto) 70.0 Lymph % (Auto) 21.9 Glascock % (Auto) 6.2 Eos % (Auto) 1.1 Baso % (Auto) 0.5 Absolute Neuts (auto) 6.1 Absolute Lymphs (auto) 1.92 Nucleated RBC % 0 Sodium 141 Potassium 3.8 Chloride 108 H Carbon Dioxide 27.0 Anion Gap 5 BUN 9 Creatinine 0.79 Estim Creat Clear Calc 66.14 Est GFR (MDRD) Af Amer 95 Est GFR (MDRD) Non-Af 78 BUN/Creatinine Ratio 11.5 Glucose 171 H Calcium 9.1 Urine Color Yellow Urine Clarity Clear Urine pH 7.0 Ur Specific Central 1.010 Urine Protein Negative Urine Glucose (UA) 50 H Urine Ketones 15 H Urine Occult Blood 25 H Urine Nitrite Negative Urine Bilirubin Negative Urine Urobilinogen Normal Ur Leukocyte Esterase Negative Urine RBC 0-5 SEEN Urine WBC 0-5 SEEN Ur Squamous Epith Cells 0 SEEN Urine Bacteria 0 SEEN Urine Mucus 0 SEEN Radiography Diagnostic Testing: Clinical Impression(s) from Imaging Studies Abdomen/Pelvis CT 03/15/24 12:19 IMPRESSION: Left hydronephrosis and hydroureter due to a 4.8 mm calculus in the proximal portion of the left ureter. Nonobstructive bilateral intrarenal calculi. Findings suggestive with 1.5 cm left adrenal adenoma. Electronically Signed: Ronald Carranza MD at 13:31 EDT , CT scan of the abdomen pelvis was obtained. There is a 4.8 mm calculus in the proximal left ureter with hydronephrosis and hydroureter. There is a 1.5 cm left adrenal adenoma. There are bilateral renal calculi noted. This was interpreted by the radiologist and was also independently reviewed by myself. Treatment and Re-Evaluation :: Patient was given IV fluids, morphine, and Zofran. Patient was given a repeat dose of morphine. Patient had minimal relief with this. Patient was given a dose of Toradol. Patient was feeling better on reevaluation. Patient was advised of her findings. Patient was given a prescription for Daisy. Patient was advised that she could take ibuprofen with this if necessary. Patient was instructed to drink plenty of fluids. Patient was given a referral for urology. Patient was instructed to follow-up in 3 to 5 days. Patient was instructed to return if worse in any way. Patient understood and was agreeable with the plan. All questions were answered. Discharge Plan Triage Chief Complaint: Flank Pain ED Provider: Erick Fuentes Dx/Rx/DC Orders Clinical Impression: Calculus of proximal left ureter, Left flank pain Instructions: ED Kidney Stone with Pain Prescriptions: New hydrocodone-acetaminophen 5-325 mg tablet 1 tab PO Q6H PRN PRN (Reason: Pain) 3 Days Qty: 10 0RF No Action (DME) blood-glucose meter Kit See Rx Instructions .ROUTE .MEDSUPPLY Qty: 1 Rx Instructions: As directed (DME) lancets [Acc[facility]Chek [facility]clix [facility]ets[facility] See Rx Instructions .ROUTE .MEDSUPPLY Qty: 50 Rx Instructions: As directed escitalopram oxalate [Lexapro] 5 mg tablet 5 mg PO DAILY atorvastatin 20 mg tablet 20 mg PO QHS famotidine 20 mg tablet 20 mg PO DAILY Jardiance 10 mg tablet 25 mg PO DAILY zinc gluconate 50 mg tablet 50 mg PO DAILY metformin 1,000 mg tablet 1,000 mg PO BID calcium carbonate-vitamin D3 [Calcium 600 with Vitamin D3] 600 mg-12.5 mcg (500 unit) capsule 1 cap PO DAILY ascorbic acid (vitamin C) 500 mg capsule 500 mg PO DAILY furosemide 20 mg tablet 20 mg PO DAILY Qty: 90 3RF albuterol sulfate 90 mcg/actuation HFA aerosol inhaler 2 puff inhalation Q6H PRN (Reason: shortness of breath or wheezing) Qty: 8.5 3RF aspirin [Adult Low Dose Aspirin] 81 mg tablet,delayed release (DR/EC) 81 mg PO DAILY Entresto 24-26 mg tablet 1 tab PO BID Qty: 60 11RF carvedilol 25 mg tablet 25 mg PO BID Qty: 180 2RF Primary Care Provider: Adina Mayer Referrals: Adina Mayer MD [Primary Care Provider] - 3-5 Days Geno Morgan MD [Med Staff - Active Staff] - 3-5 Days Print Language: Greenlandic Disposition Disposition: Home, Self Care
--- NOTE | 2024-03-15 12:19 | CT_ITS ---
STUDY: CT ABDOMEN AND PELVIS WITHOUT CONTRAST REASON FOR EXAM: Female, 63 years old. Left flank pain RADIATION DOSAGE (If Supplied By Facility): CTDIvol = ( 9.41 ) mGy, DLP = ( 479.76 ) mGycm TECHNIQUE: Transaxial images were obtained from the dome of the diaphragm to the symphysis pubis without oral contrast, and without intravenous contrast. Sagittal and coronal images were reconstructed. Individualized dose optimization techniques were used for this CT. COMPARISON: None. FINDINGS: The visualized lung bases are unremarkable. Minimal coronary artery calcification. There is decreased attenuation of the liver consistent with steatosis. Normal gallbladder and extrahepatic biliary system. Normal spleen. Normal pancreas. There is a small, circumscribed, smooth, low attenuation left adrenal mass, consistent with an adrenal adenoma. This measures 1.5 cm. Normal right adrenal gland. Nonobstructive right intrarenal calculi. There is malrotation of the right kidney. There is congestion of the left kidney. There is engorgement. Mild degree of left perinephric and periaortic ureteric stranding. This is due to a 4.8 mm calculus in the proximal portion of the right ureter. Nonobstructive left intrarenal calculus. There is a small hiatal hernia. Normal small intestine. Normal colon. There are surgical clips in the region of the appendix consistent with a prior appendectomy. There is scattered atherosclerotic calcification of the abdominal aorta, without a demonstrated aneurysm. Normal inferior vena cava. Normal retroperitoneum. Normal urinary bladder. Small benign-appearing bilateral inguinal lymph nodes. Normal abdominal wall. There are degenerative changes of the visualized lumbar spine. CT/Abdomen/Pelvis without Cont IMPRESSION: Left hydronephrosis and hydroureter due to a 4.8 mm calculus in the proximal portion of the left ureter. Nonobstructive bilateral intrarenal calculi. Findings suggestive with 1.5 cm left adrenal adenoma. Electronically Signed: Ronald Carranza MD at 13:31 EDT ,
[2024-03-15] MEDS: Morphine 4 MG/ML Syringe IM (12:26)
[2024-03-15] MEDS: Ondansetron 4 MG/2 ML Vial IV (12:30)
[2024-03-15] MEDS: 0.9% Normal Saline (1000mL) 1,000 ML 1000 ML IV (12:30)
[2024-03-15 12:48] LABS: Absolute Lymphocyte Count 1.92 X10^3/uL (0.83-4.51); Absolute Neutrophil Count 6.1 X10^3/uL (2.0-7.7); Basophil# 0.04 X10^3/uL; Basophil% 0.5 % (0-1); Eosinophils% 1.1 % (0-5); Hematocrit 39.8 % (37-47); Hemoglobin 13.1 g/dL (12.0-15.0); Lymphocyte # 1.92 X10^3/ul (0.83-4.51); Lymphocyte % 21.9 % (19-41); Mean Corp Hgb Conc 32.9 g/dL (32-36); Mean Corpuscular Hgb 28.9 pg (27.0-32.0); Mean Corpuscular Volume 87.9 fL (81-99); Mean Platelet Vol. 9.4 fl (6.2-12.0); Monocyte# 0.54 X10^3/uL; Monocyte% 6.2 % (0-10); NRBC Flagged by Analyzer 0 % (0-5); Neutrophil # 6.13 X10^3/uL (2.7-7.7); Platelet Count 212 K/mm3 (150-450); RBC Distribution Width CV 13.2 % (11.6-14.6); RBC Distribution Width SD 42.3 fl (35.1-43.9); Red Blood Count 4.53 M/mm3 (4.2-5.4); White Blood Count 8.8 K/mm3 (4.4-11.0)
[2024-03-15 13:05] LABS: Anion Gap 5 (5-15); BUN 9 mg/dL (7-18); BUN/Creat Ratio 11.5 RATIO (10-20); Calcium,Total 9.1 mg/dL (8.5-10.1); Chloride 108 mmol/L (98-107); Creatinine, Serum 0.79 mg/dL (0.55-1.02); EST Glomerular Filtration Rate 78 mL/min (>60); Est Glom Filt Rate - Afr Amer 95 mL/min (>60); Estimated Creatinine Clearance 66.14 ml/min; Glucose 171 mg/dL (74-106); Potassium 3.8 mmol/L (3.5-5.1); Sodium Level 141 mmol/L (136-145)
[2024-03-15] MEDS: Ketorolac 30 MG/ML Syringe IV (13:28)
[2024-03-15 13:29] LABS: Bacteria 0 SEEN /hpf (None Seen); Mucous, Urine 0 SEEN /hpf (<or=2+); Squamous Epithelial Cells - UA 0 SEEN /hpf (5-10)
[2024-03-15 13:31] LABS: Color, Urine Yellow (Yellow); Glucose, Dipstick 50 mg/dl (Normal); Ketone-Dipstick 15 mg/dl (Negative); Leukocyte Esterase-Dipstick Negative /ul (Negative); Nitrite-Dipstick Negative (Negative); Occult Blood-Urine 25 /ul (Negative); Protein-Dipstick Negative (Negative); Urine Bilirubin Dipstick Negative (Negative); Urine Clarity Clear (Clear); Urine Urobilinogen Normal (Normal)
[2024-03-15 13:37] LABS: Red Blood Cells-Urine 0-5 SEEN /hpf (0-5); White Blood Cells 0-5 SEEN /hpf (0-5)
[2024-03-15 13:51] VITALS: BP 115/64; PULSE 78; RESP 18; O2SAT 97
[2024-03-15 15:00] VITALS: BP 107/64; PULSE 55; RESP 15; TEMP 36.4; O2SAT 93
== END 2024-03-15 15:25 | disposition home or self-care (01) ==
PROVIDERS: Emergency Provider Emergency Medicine; PCP Family Medicine; Visit Provider Emergency Medicine
DX: N13.2 Hydronephrosis with renal and ureteral calculous obstruction (principal); I27.29 Other secondary pulmonary hypertension; I42.8 Other cardiomyopathies; E11.9 Type 2 diabetes mellitus without complications; D35.02 Benign neoplasm of left adrenal gland; I10 Essential (primary) hypertension; F41.9 Anxiety disorder, unspecified; K21.9 Gastro-esophageal reflux disease without esophagitis; Z85.3 Personal history of malignant neoplasm of breast; M19.90 Unspecified osteoarthritis, unspecified site; Z86.73 Personal history of transient ischemic attack (TIA), and cerebral infarction without residual deficits; Z79.84 Long term (current) use of oral hypoglycemic drugs; Z79.82 Long term (current) use of aspirin; Z79.899 Other long term (current) drug therapy; Z95.810 Presence of automatic (implantable) cardiac defibrillator
CPT/HCPCS: 74176; 80048; 81001; 85025; 96361; 96372; 96374; 96375; 99283; J7030; A4216; J2405

== ENCOUNTER → 2024-04-19 | Outpatient (CLI) | payer OTHER, SELFPAY ==
--- NOTE | 2024-04-19 13:50 | CT_ITS ---
INDICATION: URETERAL CALCULUS EXAMINATION: CT ABDOMEN AND PELVIS WITHOUT CONTRAST - CT Abdomen And Pelvis W/O Contrast Injection TECHNIQUE: Helically acquired images were obtained of the abdomen and pelvis without oral or IV contrast. The protocol utilizes one or more of the following dose reduction techniques: automated exposure control, adjustment of mA and/or kV according to patient size,and/or use of iterative reconstruction technique. IV Contrast dosage and agent: None. Oral contrast: None. RADIATION DOSAGE (If Supplied By Facility): CTDIvol = ( 8.78 ) mGy, DLP = ( 451.90 ) mGycm COMPARISON: Prior study dated: 03/15/2024 FINDINGS: LOWER CHEST: Lung bases are clear. No cardiomegaly or pericardial effusion. LIVER: Hepatic steatosis and mild hepatomegaly. Focal lesion is seen without contrast. GALLBLADDER AND BILIARY TREE: Contracted gallbladder is suboptimally visualized. No intra- or extrahepatic biliary ductal dilation. PANCREAS: No focal cystic or solid mass. SPLEEN: Normal size without focal cystic or solid mass. ADRENAL GLANDS: Persistent 1.5 cm left adrenal nodule unchanged likely due to adenoma. KIDNEYS AND URETERS: Malrotated right kidney. Nonobstructing stones in the right kidney are again seen, the largest measures about 4 mm. 4 mm left renal stone is again seen. Mildly improved left hydronephrosis. Persistent 5 mm stone in the proximal left ureter. PERITONEUM: No ascites or free air. No other fluid collection. BOWEL: Previous appendectomy. Small hiatal hernia. No evidence of acute diverticulitis. LYMPH NODES: Small inguinal nodes are seen. VESSELS: Aorta is non-dilated. URINARY BLADDER: Unremarkable. REPRODUCTIVE ORGANS: Absent uterus consistent with previous hysterectomy. ABDOMINAL WALL: No discrete abdominal or pelvic wall hernia. BONES: No lytic or blastic abnormality. CT/Abdomen/Pelvis without Cont IMPRESSION: 1. Persistent bilateral nonobstructing renal stones. 2. Slightly improved left hydronephrosis. Persistent 5 mm stone in the proximal left ureter unchanged in position since previous exam. 3. Additional nonacute findings unchanged.. Electronically Signed: Willi Robbins MD at 15:43 EST ,
== END | disposition home or self-care (01) ==
PROVIDERS: PCP Family Medicine; Referring Provider Urology; Visit Provider Urology
DX: N20.1 Calculus of ureter (principal)
CPT/HCPCS: 74176

== ENCOUNTER → 2024-05-11 | Outpatient (CLI) | payer OTHER, SELFPAY ==
--- NOTE | 2024-05-11 09:36 | RAD_ITS ---
STUDY: X-RAY - ABDOMEN/PELVIS REASON FOR EXAM: Female, 64 years old. KUB- STONE TECHNIQUE: Frontal views COMPARISON: None. FINDINGS: Normal visualized lung bases. There is an unremarkable bowel gas pattern. There is no demonstrated free abdominal air. Up to 4 mm calcifications over the left renal shadow. Normal soft tissue structures. Normal visualized osseous structures. RAD/Abdomen Single View IMPRESSION: Left renal calculi. Electronically Signed: Laith Daigle DO at 10:38 EST ,
== END | disposition home or self-care (01) ==
LOC: MTRAD 09:34
PROVIDERS: PCP Family Medicine; Referring Provider Urology; Visit Provider Urology
DX: N20.0 Calculus of kidney (principal)
CPT/HCPCS: 74018

== ENCOUNTER 2024-05-19 05:51 | Day surgery (SDC) | payer OTHER, SELFPAY ==
[2024-05-19] VITALS (10 sets, daily range): BP systolic 119–138; BP diastolic 62–78; PULSE 59–72; RESP 14–16; TEMP 36.2–37.4; O2SAT 84–98; BMI 30.7
[2024-05-19] MEDS: Lactated Ringers 1,000 ML 15 ML IV (06:39)
[2024-05-19 07:00] LABS: Bedside Glucose 219 mg/dL (74-106)
--- NOTE | 2024-05-19 07:04 | PRE.ANES_ITS ---
ASA Classification* ASA Classification ASA Classification: 3 Assessment & Plan Anesthesia* Anesthesia Assessment Anesthesia Assessment: Discussed sedation and/or anesthesia options, risks, benefits, and alternatives with patient/parents/legal guardian/POA. Questions invited. The patient/parents/legal guardian/POA seems to understand and agrees to proceed with anesthesia plan. Reviewed the physical assessment, medical history, allergy history and patient home medications list prior to surgery/procedure/anesthetic and documented any changes. Performed airway and anesthesia risk assessments. Anesthesia Type Anesthesia Type: General History Source History Obtained from:: Patient and Chart Anesthesia Focused Assessment* Temperature: 99.3 F Pulse Rate: 59 Blood Pressure: 125/62 Respiratory Rate: 16 Pulse Ox: 97 Oxygen Delivery Method: Room Air Airway Assessment Mouth opens: >3 cm Mallampati Score: IV Teeth Condition: Caps/Crowns (Patient has several crowns including the front top incisors. They are all tight.) Neck Range of motion (ROM): Limited ROM (Slight decrease extension) Focused Labs Anesthesia Preop lab: CBC WBC 7.2 K/mm3 (4.4-11.0) 03/28/24 14:42 RBC 4.45 M/mm3 (4.2-5.4) 03/28/24 14:42 Hgb 12.8 g/dL (12.0-15.0) 03/28/24 14:42 Hct 38.2 % (37-47) 03/28/24 14:42 Plt Count 247 K/mm3 (150-450) 03/28/24 14:42 CHEMISTRY Potassium 3.3 mmol/L (3.5-5.1) L 03/28/24 14:42 Sodium 138 mmol/L (136-145) 03/28/24 14:42 Magnesium 2.0 mg/dL (1.6-2.6) 03/17/23 13:45 BUN 9 mg/dL (7-18) 03/28/24 14:42 Creatinine 0.76 mg/dL (0.55-1.02) 03/28/24 14:42 Glucose 155 mg/dL (74-106) H 03/28/24 14:42 POC Glucose 219 mg/dL (74-106) H 05/19/24 06:38 TSH 2.25 uIU/mL (0.358-3.74) 03/17/23 13:45 COAG PT 34.2 SECONDS (11.7-14.9) H 02/22/20 08:59 Pre-Assessment Diagnosis/Proposed Procedure Planned Operative Procedure(s): CYSTO LEFT URETEROSCOPY WITH LASER LITHOTRIPSY STONE BASKET EXTRACTION AND LEFT URETERAL STENT INSERTION Anesthesia History 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 When Was Last Pacemaker Check QUESTION #4 FULL TEXT: You/Your Family Experience fever (hyperthermia) with Anesthesia Last Oral Intake Last Oral intake: Last Oral Intake NPO since 00:00 05/19/24 06:22 Meds taken in AM with sips of Yes 05/19/24 06:22 water? Meds patient instructed to carvedilol 05/19/24 06:22 take am of surgery entresto famotidine Any additional information?: Yes Meds taken in AM with sips of water?: Yes PONV PONV - palletiser operator: PONV - palletiser operator Female Yes 05/05/24 09:17 HX of Motion Sickness Yes 05/05/24 09:17 HX of N/V After Surgery No 05/05/24 09:17 Non-Smoker Yes 05/05/24 09:17 Duration of Surgery greater Yes 05/05/24 09:17 than 60 minutes Number of Risk Factors 4 05/05/24 09:17 PONV Score Severe Risk 05/05/24 09:17 Height & Weight Height & Weight: Anesthesia: Height & Weight Height 5 ft 1 in 05/19/24 06:22 Weight: 73.8 kg 05/19/24 06:22 Body Mass Index (BMI) 30.7 05/19/24 06:22 Respiratory Assessment Respiratory Assessment - palletiser operator: Respiratory Tract Infection Hx - palletiser operator Hx Respiratory Tract Infection No 05/05/24 09:17 STOP Sleep Apnea STOP Sleep Apnea - palletiser operator: STOP Sleep Apnea - palletiser operator Hx Hypertension Yes: CONTROLLED WITH MED 05/05/24 09:17 Hx Sleep Apnea No 05/05/24 09:17 CPAP BIPAP Do you snore loudly (louder Yes 05/05/24 09:17 than talking or can be heard Do you often feel tired/ No 05/05/24 09:17 fatigued/ sleepy during daytime? Has anyone observed you stop No 05/05/24 09:17 breathing during sleep? STOP Results Positive 05/05/24 09:17 QUESTION #5 FULL TEXT : Do you snore loudly (louder than talking or can be heard through closed doors)? 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 Specify any problems Hx of Preganancy in last 3 No 05/05/24 09:17 Months Nurse Filling Out Transfusion DSCHRIBER 05/05/24 09:17 & Questions: Date: 05/05/24 05/05/24 09:17 Time: 09:19 05/05/24 09:17 Patient unable to answer at this time (ie. confused, unrespo /Reproduction History /Reproductive History - palletiser operator: /Reproductive Hx- palletiser operator Hx Now No 05/05/24 09:17 Gestational Age (in weeks): EDC: Hx Hx Para Hx Section SAB No 05/05/24 09:17 Active Medications Active Medications: Current Medications Generic Name Dose Route Start Last Admin Trade Name Freq PRN Reason Stop Dose Admin Cefazolin Sodium 2 gm/ N/A 20 mls @ 400 mls/hr 05/19/24 07:30 IV 05/19/24 07:32 PREOP ONE Lactated Ringer's 1,000 mls @ 15 mls/hr 05/19/24 06:15 05/19/24 06:39 IV 05/22/24 00:54 15 mls/hr .Q48H ANAHI Administration Protocol [facility] Medical History Wears glasses Cancer Anxiety Alcohol use Dietary restriction Gastric reflux Non-smoker History of echocardiogram Cardiology follow-up encounter Meckels diverticulum History of CVA (cerebrovascular accident) (10/26/19) Type 2 diabetes mellitus Essential (primary) hypertension Lung nodule Pleural effusion, bilateral Pericardial effusion Nonischemic cardiomyopathy Nonrheumatic mitral (valve) insufficiency Secondary pulmonary hypertension Nonrheumatic tricuspid (valve) insufficiency LV dysfunction Breast CA History of migraine headaches Arthritis Home Medications ?Medication ?Instructions ?Recorded ?Last Taken ?Type blood-glucose meter #1 ea 11/21/19 Unknown History lancets (Accu-Chek Softclix #50 ea 11/21/19 Unknown History Lancets) escitalopram oxalate 5 mg tablet 5 mg PO DAILY mental health 11/24/19 05/18/24 History (Lexapro) atorvastatin 20 mg tablet 20 mg PO QHS 03/29/20 05/18/24 History famotidine 20 mg tablet 20 mg PO DAILY 10/08/21 05/19/24 History aspirin 81 mg tablet,delayed 81 mg PO DAILY 10/18/21 05/18/24 History release (Adult Low Dose Aspirin) albuterol sulfate 90 mcg/actuation 2 puff inhalation Q6H PRN 06/19/22 Unknown Rx aerosol inhaler shortness of breath or wheezing #8.5 grams calcium 600 mg (as 1 cap PO DAILY 06/19/22 Unknown History carbonate)-vitamin D3 12.5 mcg (500 unit) capsule (Calcium with Vit D3) furosemide 20 mg tablet 20 mg PO DAILY water pill #90 tabs 06/19/22 05/18/24 Rx metformin 1,000 mg tablet 1,000 mg PO BID 10/14/22 05/18/24 History sacubitril 24 mg-valsartan 26 mg 1 tab PO BID #60 tabs 02/11/23 05/19/24 Rx tablet (Entresto) carvedilol 25 mg tablet 25 mg PO BID #180 tabs 10/02/23 05/19/24 Rx hydrocodone-acetaminophen 5-325mg 1 tab PO Q6H PRN PRN Pain 3 days 03/15/24 Unknown Rx 5mg-325mg #10 TABLETS potassium chloride 20 mEq 20 meq PO QDAY #10 tabs 03/28/24 Unknown Rx tablet,extended release Allergy/AdvReac Type Severity Reaction Status Date / Time No Known Allergies Allergy Verified 05/05/24 09:13 Family History Mother Hypertension Myocardial infarction Migraines Father Diabetes Cancer prostate Hypertension Grandmother Hypertension CVA (cerebral vascular accident) Heart disease Cancer (paternal- cervical cancer; maternal- uterine cancer) Grandfather Hypertension Colon cancer Cancer lung Aunt Breast cancer Brother Hypertension Surgical History Hx of colonoscopy History of wisdom tooth extraction History of implantable cardiac defibrillator (ICD) (03/01/20) History of left heart catheterization (01/06/20) H/O lumpectomy History of delivery History of appendectomy Social History household members: spouse housing: house number of children: 3 current occupational status: unemployed 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
--- NOTE | 2024-05-19 07:30 | CALC_PTH ---
PATIENT: CECILE YOUNG LOC: [facility] U#:[id number] AGE/SX: 64/F ROOM: RE05/19/[address]: Dr. Geno Morgan MD : [id number] BED: DIS: 05/19/2024 SPEC #: [id number] RECD: 05/19/24 11:37 STATUS: NURYS ARRIAGA #: [id number] JOSEF: 05/19/24 07:[address]: Geno Morgan DEPT: SURGICAL PATHOLOGY RECD BY: Katelynn Griffin ENTERED: 05/19/24 12:17 SP TYPE: Calculi OTHR DR: Adina Mayer MD Tissues: CALCULI Procedures: Surgery Specimen Level I HEADER OPERATION: Left ureteroscopy, laser lithotripsy PRE-OP DIAGNOSIS: Ureteral stone, kidney stones TISSUE SUBMITTED: Renal stone GROSS DIAGNOSIS Urethral stone, removal: Fragments of unremarkable calculi (gross diagnosis only). AM. 05/20/2024 GROSS DESCRIPTION Received without fixative labeled with the patient's name and designated left renal stone. The specimen consists of multiple irregular fragments of dark-price calculi measuring in aggregate 3.0 x 0.1 x 0.1 cm. The entire specimen is submitted for chemical stone analysis. AM. 05/19/2024 CPT: 94695
[2024-05-19] MEDS: Cefazolin 2 GM in Syringe IV (07:40)
--- NOTE | 2024-05-19 08:30 | PCM.POST.ANE ---
Anesthesia: Postop Eval I Current Vital Signs Temperature: 97.1 F Pulse Rate: 68 Blood Pressure: 119/64 Respiratory Rate: 16 Pulse Ox: 93 Oxygen Delivery Method: Nasal Cannula Oxygen Flow Rate (L/min): 4 Assessment Airway patent: Yes Spontaneous unlabored respirations: Yes Mental status: Awake and Calm nausea: No Vomiting: No Anesthesia Complication: No Fluid Hydration Crystalloid volume administer (ml): 800 Total IV fluid infused: 800 Progress Note Anesthesia document: Postop Eval 1 completed: Yes
--- NOTE | 2024-05-19 08:32 | EX.PCM.DISCH ---
Discharge Instructions Diet Discharge Diet: No restrictions Activity Discharge Activity: Return to Normal Activity Dressing / Incision Call your doctor if you observe: Fever of 101 or Higher, Inability to urinate and Inability to have a bowel movement Follow Up Care Please Follow Up With: Geno Morgan MD When: The office will call to make follow-up arrangements for stent removal Test Results: Test results from this visit will be discussed in further detail at your follow-up appointment, if applicable. Discharge Plan Admission Attending Provider: Geno Morgan Primary Care Provider: Adina Mayer Instructions Print Language: Pashto Discharge Orders/Prescriptions Prescriptions: New oxycodone-acetaminophen [Percocet] 5-325 mg tablet 1 tab PO Q8H PRN (Reason: pain) 3 Days Qty: 10 0RF cephalexin 500 mg capsule 500 mg PO Q12 3 Days Qty: 6 0RF phenazopyridine [Pyridium] 200 mg tablet 200 mg PO TID PRN PRN (Reason: Bladder Spasms) 7 Days Qty: 30 1RF Continued (DME) blood-glucose meter Kit See Rx Instructions .ROUTE .MEDSUPPLY Qty: 1 Rx Instructions: As directed (DME) lancets [Accu-Chek Softclix Lancets] Misc See Rx Instructions .ROUTE .MEDSUPPLY Qty: 50 Rx Instructions: As directed escitalopram oxalate [Lexapro] 5 mg tablet 5 mg PO DAILY atorvastatin 20 mg tablet 20 mg PO QHS famotidine 20 mg tablet 20 mg PO DAILY metformin 1,000 mg tablet 1,000 mg PO BID calcium carbonate-vitamin D3 [Calcium 600 with Vitamin D3] 600 mg-12.5 mcg (500 unit) capsule 1 cap PO DAILY furosemide 20 mg tablet 20 mg PO DAILY Qty: 90 3RF albuterol sulfate 90 mcg/actuation HFA aerosol inhaler 2 puff inhalation Q6H PRN (Reason: shortness of breath or wheezing) Qty: 8.5 3RF potassium chloride 20 mEq tablet extended release 20 meq PO QDAY Qty: 10 0RF hydrocodone-acetaminophen 5-325 mg tablet 1 tab PO Q6H PRN PRN (Reason: Pain) 3 Days Qty: 10 0RF aspirin [Adult Low Dose Aspirin] 81 mg tablet,delayed release (DR/EC) 81 mg PO DAILY Entresto 24-26 mg tablet 1 tab PO BID Qty: 60 11RF carvedilol 25 mg tablet 25 mg PO BID Qty: 180 2RF Referrals / Follow Up: Adina Mayer MD [Primary Care Provider] - Disposition Disposition (needs filled in before D/C Order can be placed): Home, Self Care
--- NOTE | 2024-05-19 08:35 | OP.PCM_ITS ---
Operative Report (Standard) Operative Information Surgery/Procedure Performed: Cystoscopy, left ureteroscopy thulium laser lit hotripsy, stone basket extraction, left ureteral stent insertion Surgeon: Geno Morgan Date of Procedure: 05/19/24 Procedure Start Time: 07:49 Procedure Stop Time: 08:16 Pre-Operative Diagnosis: Left renal and ureteral calculus Post-Operative Diagnosis: Same Select all DRAINS/GRAFTS/IMPLANTS that apply: Drains Drain details: 6 Peruvian by 22 cm JJ stent Type of Anesthesia: General Estimated Blood Loss: <5cc Specimen collected: Yes Description of specimen(s) removed: Stone fragment Description of surgery: The patient is a 64-year-old female who was diagnosed with a left proximal ureteral calculus as well as a left renal calculus who presents for surgical intervention. Informed consent was obtained. She was taken to the operating room and placed on the operating room table. Anesthesia monitored the head, neck, airway, IV access and vital signs throughout the case. Once anesthesia was appropriate ministered, she was placed into dorsolithotomy position was prepped and draped in usual sterile fashion. The cystoscope was inserted through the urethra under direct visualization into the urinary bladder. The b ladder revealed no evidence of mass, erythema or ulceration. The left ureteral orifice was intubated with a 0.035 Glidewire which advanced into the renal pelvis pushing the stone along with it. A second wire also 0.035 in size was placed alongside of the first safety wire. At this time the flexible ureteroscope was passed over the wire with easy access into the ureter and advanced all the way to the renal pelvis without evidence of any ureteral calculi. At this time the stones were identified and a 200 ?m thulium fiber was used to break the stones into small pieces of debris. The largest fragment was stone basket retrieved. There is no ureteral injury or foreign body identified on the exit of the ureter with the flexible ureteroscope. The safety wire and the cystoscope were then utilized for placement of a 6 Peruvian 22 cm JJ stent with good positioning in the renal pelvis as well as the urinary bladder. The patient was then awakened and taken to the recovery room in good condition. There were no complications during the procedure. Surgical Findings: 2 stones broken into debris with the large fragment removed and sent for anal ysis Argon Tester patient flow coordinator: No Complications Complications: No Admit VTE Documentation VTE Present on Admission: Yes VTE Mechan Device Prophylaxis: SCD's VTE Pharm Prophylaxis ordered?: No Reason prophylaxis not ordered: Treatment Not Indicated
--- NOTE | 2024-05-19 09:04 | SUR.PHASEI ---
PATIENT VOIDED SMALL AMOUNT OF RED URINE IN BEDPAN
--- NOTE | 2024-05-20 07:45 | POSTOPAN2_ITS ---
Anesthesia Postop Eval I Sum Postop Eval Completion status Anesthesia document: Postop Eval 1 completed: Yes Anesthesia Postop Eval I Summary Anesthesia Postop Eval I Summary: Anesthesia Postop Eval I: Assessment Summary Airway patent Yes 05/19/24 08:30 CHAR FILTER TANK TENDER HEAD.[email or web address] Spontaneous unlabored Yes 05/19/24 08:30 CHAR FILTER TANK TENDER HEAD.AKIKO respirations Mental status Awake,Calm 05/19/24 08:30 CHAR FILTER TANK TENDER HEAD.SKOBY nausea No 05/19/24 08:30 CHAR FILTER TANK TENDER HEAD.SKOBY Vomiting No 05/19/24 08:30 CHAR FILTER TANK TENDER HEAD.AUTUMNOBElmo Anesthesia Postop Eval I: Fluid Summary Crystalloid volume administer 800 05/19/24 08:30 CHAR FILTER TANK TENDER HEAD.SKOBY (ml) Colloids volume administered ( ml) Blood Product volume administered (ml) Total IV fluid infused 800 05/19/24 08:30 CHAR FILTER TANK TENDER HEAD.AKIKO Anesthesia Postop Eval I: Summary Notes Anesthesia Complication No 05/19/24 08:30 CHAR FILTER TANK TENDER HEAD.AKIKO Anesthesia Complication Comment: Post-operative progress note Anesthesia: Postop Eval II Evaluation Mental status: Awake Pain Level: 0 nausea: No Vomiting: No
--- NOTE | 2024-05-20 07:45 | PCM.POSTANE2 ---
Anesthesia Postop Eval I Sum Postop Eval Completion status Anesthesia document: Postop Eval 1 completed: Yes Anesthesia Postop Eval I Summary Anesthesia Postop Eval I Summary: Anesthesia Postop Eval I: Assessment Summary Airway patent Yes 05/19/24 08:30 CLUBHOUSE [email or web address] Spontaneous unlabored Yes 05/19/24 08:30 CLUBHOUSE [email or web address] respirations Mental status Awake,Calm 05/19/24 08:30 CLUBHOUSE MANAGER.[email or web address] nausea No 05/19/24 08:30 CLUBHOUSE MANAGER.[email or web address] Vomiting No 05/19/24 08:30 CLUBHOUSE MANAGER.[email or web address] Anesthesia Postop Eval I: Fluid Summary Crystalloid volume administer 800 05/19/24 08:30 CLUBHOUSE MANAGER.[email or web address] (ml) Colloids volume administered ( ml) Blood Product volume administered (ml) Total IV fluid infused 800 05/19/24 08:30 CLUBHOUSE MANAGER.[email or web address] Anesthesia Postop Eval I: Summary Notes Anesthesia Complication No 05/19/24 08:30 CLUBHOUSE MANAGER.[email or web address] Anesthesia Complication Comment: Post-operative progress note Anesthesia: Postop Eval II Evaluation Mental status: Awake Pain Level: 0 nausea: No Vomiting: No
[2024-05-25 11:07] LABS: Ca Oxalate, Dihydrate 30 % (.); Ca Oxalate, Monohydrate 50 % (.); Calcium Phosphate (hydroxyl) 20 % (.); Size 3x2 mm (.)
== END 2024-05-19 10:06 | disposition home or self-care (01) ==
LOC: SDC 05:53 → AC 05:53
PROVIDERS: PCP Family Medicine; Referring Provider Urology; Visit Provider Urology
PROC: (CPT 52356; principal; 2024-05-19 07:20)
DX: N20.2 Calculus of kidney with calculus of ureter (principal); I27.21 Secondary pulmonary arterial hypertension; I42.8 Other cardiomyopathies; E11.9 Type 2 diabetes mellitus without complications; I10 Essential (primary) hypertension; I34.0 Nonrheumatic mitral (valve) insufficiency; F41.9 Anxiety disorder, unspecified; K21.9 Gastro-esophageal reflux disease without esophagitis; M19.90 Unspecified osteoarthritis, unspecified site; Z85.3 Personal history of malignant neoplasm of breast; Z87.19 Personal history of other diseases of the digestive system; Z86.73 Personal history of transient ischemic attack (TIA), and cerebral infarction without residual deficits; Z79.82 Long term (current) use of aspirin; Z90.49 Acquired absence of other specified parts of digestive tract; Z79.84 Long term (current) use of oral hypoglycemic drugs; Z79.899 Other long term (current) drug therapy; Z95.810 Presence of automatic (implantable) cardiac defibrillator
CPT/HCPCS: 52356; 76000; 82360; 82962; 88300; C2625; J2405

== ENCOUNTER → 2024-11-23 | Outpatient (CLI) | payer OTHER, SELFPAY ==
--- NOTE | 2024-11-23 09:57 | RAD_ITS ---
PROCEDURE: ABDOMEN SINGLE VIEW 11/23/2024 REASON FOR EXAM: KUB- STONE TECHNIQUE: Single view abdomen. COMPARISON: KUB, 05/11/2020. FINDINGS: There is a nonobstructive bowel gas pattern. There is a surgical clip in the right lower quadrant consistent with appendectomy. There are no abnormal soft tissue calcifications. There are no significant bony abnormalities. RAD/Abdomen Single View IMPRESSION: No evidence of acute abdominal pathology. Reading Location: [place] [id number]
== END | disposition home or self-care (01) ==
PROVIDERS: PCP Family Medicine; Referring Provider Urology; Visit Provider Urology
DX: N20.1 Calculus of ureter (principal)
CPT/HCPCS: 74018

== ENCOUNTER → 2025-02-16 | Outpatient (CLI) | payer OTHER, SELFPAY ==
--- NOTE | 2025-02-16 07:45 | BI_ITS ---
EXAM: SCRN MAMM (CAD)W/MANUEL BILAT DATE: 02/16/2025 CLINICAL HISTORY: F, Age 64 y/o , SCREEN FOR BREAST CANCER Personal history of breast cancer. Prior lumpectomy in the upper-outer quadrant of the right breast. Aunt with breast cancer. TECHNIQUE: Procedure Code: [id number] Modality: MG Procedure: SCRN MAMM (CAD)W/MANUEL BILAT COMPARISON: Prior exam(s) dated November 25, 2023.. FINDINGS: TISSUE DENSITY: There are scattered areas of fibroglandular density. Bilateral Breast Mammographic Findings: No significant masses, calcifications or other abnormalities are identified. Once again, the patient is status post lumpectomy in the deep upper lateral aspect of the right breast with postoperative scarring and calcifications. No suspicious masses, areas of developing architectural distortion, or suspicious calcifications. There has been no significant interval change. A battery pack of a left-sided pacemaker is seen in the left axilla. BI/SCRN MAMM (CAD)W/MANUEL BILAT IMPRESSION: Stable screening bilateral mammogram. OVERALL FINAL ASSESSMENT BI-RADS 2: BENIGN RECOMMENDATION: Routine annual follow-up in 1 Year A letter with findings and recommendations will be mailed to the patient. Reading Location: [id number]
== END | disposition home or self-care (01) ==
LOC: OPBI 07:35
PROVIDERS: PCP Family Medicine; Referring Provider Nurse Practitioner Women's Health; Visit Provider Nurse Practitioner Women's Health
DX: Z12.31 Encounter for screening mammogram for malignant neoplasm of breast (principal)
CPT/HCPCS: 77063; 77067

== ENCOUNTER → 2025-04-27 | Outpatient (CLI) | payer OTHER, MEDICARE, SELFPAY ==
[2025-04-27 18:22] LABS: Creatinine, Urine (random) 30.50 mg/dL (28.00-217.00); Microalbumin,Random Urine < 12.0 mg/L (<20 mg/L)
[2025-04-27 18:52] LABS: Cholesterol 130 mg/dL (<=200); Low Density Lipoprotein Calc. 38 mg/dL; Triglycerides 118 mg/dL; Very Low Density Lipoprotein 24 mg/dL (5-40); Vitamin D,25 Hydroxy 30.6 ng/mL (30-100); cholesterol:hdl ratio screen 1.82
== END | disposition home or self-care (01) ==
LOC: MFPLAB 14:50
PROVIDERS: PCP Family Medicine; Visit Provider Family Medicine
DX: I42.8 Other cardiomyopathies (principal)
CPT/HCPCS: 36415; 80061; 82043; 82306; 82570; 83036